=== PATIENT | female | born 1955 | race Caucasian/White ===

== ENCOUNTER → 2017-03-16 | Outpatient (CLI) | payer MEDICARE, BC ==
[2016-05-04 22:51] VITALS: BP 166/91
[~2017-03-16] MED LIST: ALPR1TAB6 PO; AZIT250T6 PO; BENZ100C PO; BUDE10.2 IH; CALC625T PO; CETI10TA16 PO; CHOL2000 PO; CHOL200074 PO; DIPH25CA58 PO; DOXY100T PO; GUAI118L20 PO; GUAI600T47 PO; HYDR-209 PO; HYDR-2766 PO; IPRA14.7 IH; IPRA3AMP23 IH; IPRA4AER IH; LEVO100T5 PO; LEVO500T59 PO; METF-620 PO; METF500T4 PO; MONT10TA6 PO; NYST15CR2 TOP; OXYC-327 PO; PANT40GR PO; PRED-220 PO; PRED20TA PO; PSYL0.527 PO; ROFL500T7 PO; ZOLP5TAB PO; [UNRECOGNIZED DRUG - CODE] IH
--- NOTE | 2017-03-16 14:42 | RAD ---
CT of the paranasal sinuses without contrast, 03/16/2017: History: Chronic sinusitis Noncontrast scans were obtained with multiplanar reconstructions produced. There is moderate mucosal thickening in both maxillary sinuses. This soft tissue thickening extends into the ostiomeatal complex regions and both ethmoid sinuses. Both ethmoid sinuses are nearly completely opacified. There is extensive mucosal thickening in both sphenoid sinuses. There is partial opacification of the frontal sinuses, worse on the left. Several small air-fluid levels are noted. The findings have worsened since 02/13/2016. There are defects in the medial/superior holt of both maxillary sinuses, presumably postsurgical. The orbital contents are unremarkable. IMPRESSION: Extensive pansinusitis size as described above, which has worsened since 02/13/2016. PQRS Compliance Statement: One or more of the following individualized dose reduction techniques were utilized for this examination: 1. Automated exposure control 2. Adjustment of the mA and/or kV according to patient size 3. Use of iterative reconstruction technique
== END | disposition home or self-care (01) ==
LOC: CT 10:28
PROVIDERS: ATTEND Otolaryngology
DX: J32.9 Chronic sinusitis, unspecified (principal); J32.4 Chronic pansinusitis
CPT/HCPCS: 70486

== ENCOUNTER → 2017-04-01 | Outpatient (CLI) | payer MEDICARE, BC ==
[2016-05-04 22:51] VITALS: BP 166/91
--- NOTE | 2017-04-01 15:34 | RAD ---
Chest, 2 views, 04/01/2017: History: COPD, asthma Comparison is made to a study from 05/04/2016. The heart size and pulmonary vascularity are normal. There is mild right basilar linear atelectasis. No pulmonary consolidation is seen. There is no evidence of significant pleural fluid. Minimal spurring is present in the spine. IMPRESSION: Minimal left basilar linear atelectasis.
== END | disposition home or self-care (01) ==
LOC: RAD 14:24
PROVIDERS: ATTEND Internal Medicine Pulmonary Disease
DX: J98.11 Atelectasis (principal)
CPT/HCPCS: 71020

== ENCOUNTER → 2017-04-21 | Outpatient (CLI) | payer MEDICARE, BC ==
[2016-05-04 22:51] VITALS: BP 166/91
--- NOTE | 2017-04-21 13:36 | KCIC ---
Clinical Indication: Postmenopausal screening. Technique: Bone Densitometry was performed with dual photon absorption of the lumbar spine and proximal left femur. Comparison is from November 01, 2015. Findings: Lumbar Spine: Bone density is 1.006 g/cm2 for L1-L4. T-Score is -0.4 and Z-score 1.2. Age-matched percentage is 115 %. Left Femur total: Bone density is 1.054 g/cm2. T-Score is 0.9 and Z-score 2.0. Age-matched percentage is 130%. Spine bone marrow density has decreased by 3.3 percent from prior. Hip bone marrow density has decreased by 2.2 percent from prior. Impression: 1. Normal bone mineral density in the lumbar spine. 2. Normal bone marrow density in the left hip. Electronically signed by: Chandler Monsivais MD (04/21/2017 1:33 PM) [email or web address]
== END | disposition home or self-care (01) ==
LOC: KCIC DEXA 12:54
PROVIDERS: ATTEND Internal Medicine Rheumatology
DX: N95.9 Unspecified menopausal and perimenopausal disorder (principal)
CPT/HCPCS: 77080

== ENCOUNTER 2017-12-27 15:38 | Inpatient (IN) | payer MEDICARE, BC ==
[2017-12-27] MEDS: IPRATROPIUM BROMIDE 0.5 MG/2.5 ML NEBU. NEB (15:56)
[2017-12-27] MEDS: ALBUTEROL SULFATE 2.5 MG/3 ML NEBU. CONT NEB (15:56)
[2017-12-27] MEDS: methylPREDNISolone SOD SUCC PF 125 MG/2 ML VIAL. IV ×2 (16:04→21:26)
[2017-12-27 16:22] LABS: ADD MAN DIFF? NO
[2017-12-27 16:23] LABS: BASO # 0.2 x10^3/uL (0.0-0.2); BASO % 2 % (0-3); EOS # 0.5 x10^3/uL (0.0-0.7); EOS % 6 % (0-3); HEMATOCRIT 34.8 % (36.0-47.0); HEMOGLOBIN 11.6 g/dL (12.0-15.5); LYMPH # 2.3 x10^3/uL (1.0-4.8); LYMPH % 25 % (24-48); MEAN CORPUSCULAR HEMOGLOBIN 27 pg (25-35); MEAN CORPUSCULAR HGB CONC 33 g/dL (31-37); MEAN CORPUSCULAR VOLUME 81 fL (79-100); MONO # 0.6 x10^3/uL (0.0-1.1); MONO % 6 % (0-9); NEUT # 5.8 x10^3uL (1.8-7.7); NEUT % 62 % (31-73); PLATELET COUNT 364 x10^3/uL (140-400); RED BLOOD COUNT 4.31 x10^6/uL (3.50-5.40); WHITE BLOOD COUNT 9.4 x10^3/uL (4.0-11.0)
[2017-12-27 16:49] LABS: NT-PRO BNP 112 pg/mL (0-124)
[2017-12-27 16:52] LABS: TROPONINI < 0.017 ng/mL (0.000-0.055)
[2017-12-27] MEDS ORDERED: CROMOLYN SODIUM 20 MG/2 ML IH (17:00)
[2017-12-27] MEDS ORDERED: ZOLPIDEM 5 MG TABLET. PO (17:00)
[2017-12-27] MEDS ORDERED: cloNIDine HCL 0.1 MG TABLET PO (17:00)
[2017-12-27] MEDS ORDERED: HYDROcodone/APAP 10/325 1 TAB TABLET PO (17:00)
[2017-12-27] MEDS ORDERED: CALCIUM POLYCARBOPHIL 625 MG TABLET PO (17:00)
[2017-12-27] MEDS ORDERED: IBUPROFEN 400 MG TABLET. PO (17:00)
[2017-12-27] MEDS ORDERED: ACETAMINOPHEN 500 MG TABLET PO (17:00)
[2017-12-27] MEDS ORDERED: ALBUTEROL SULFATE 2.5 MG/3 ML NEBU. NEB (17:00)
[2017-12-27] MEDS: BENZONATATE 100 MG CAPSULE. PO ×2 (18:12→20:51)
[2017-12-27] MEDS: guaiFENesin DM 200MG/20MG 10 ML SYRUP PO (18:12)
[2017-12-27] MEDS: oxyCODONE/APAP 7.5/325 1 TAB TABLET PO (18:13)
[2017-12-27 19:25] LABS: ANION GAP 11 (6-14); BLOOD UREA NITROGEN 18 mg/dL (7-20); BUN/CREATININE RATIO 15 (6-20); CALCIUM 9.4 mg/dL (8.5-10.1); CARBON DIOXIDE 24 mmol/L (21-32); CHLORIDE 104 mmol/L (98-107); CREATININE 1.2 mg/dL (0.6-1.0); GFR 45.4; GLUCOSE 161 mg/dL (70-99); POTASSIUM 3.3 mmol/L (3.5-5.1); SODIUM 139 mmol/L (136-145)
[2017-12-27] MEDS ORDERED: IPRATRPIUM/ALBUTEROL 0.5/2.5MG 3 ML NEBU. (19:30)
[2017-12-27 19:31] LABS: ALBUMIN 3.4 g/dL (3.4-5.0); ALK PHOS 132 U/L (46-116); ALT (SGPT) 29 U/L (14-59); AST (SGOT) 18 U/L (15-37); TOTAL BILIRUBIN 0.5 mg/dL (0.2-1.0); TOTAL PROTEIN 6.9 g/dL (6.4-8.2)
[2017-12-27] MEDS: IPRATRPIUM/ALBUTEROL 0.5/2.5MG 3 ML NEBU. NEB (20:36)
[2017-12-27] MEDS: MONTELUKAST SODIUM 10 MG TABLET. PO ×2 (20:51→20:53)
[2017-12-27] MEDS: HYDROcodone/APAP 5/325MG 1 TAB TABLET PO (23:02)
[2017-12-27] MEDS: ALPRAZolam 1 MG TABLET PO (23:05)
[2017-12-28] MEDS: diphenhydrAMINE HCL 25 MG CAPSULE PO (01:40)
[2017-12-28] MEDS: guaiFENesin DM 200MG/20MG 10 ML SYRUP PO ×3 (03:25→17:55)
[2017-12-28] MEDS: LEVOTHYROXINE 112 MCG TABLET PO (06:18)
[2017-12-28] MEDS: oxyCODONE/APAP 7.5/325 1 TAB TABLET PO ×3 (06:18→21:33)
[2017-12-28] MEDS: methylPREDNISolone SOD SUCC PF 125 MG/2 ML VIAL. IV ×3 (06:18→21:40)
[2017-12-28] MEDS: IPRATRPIUM/ALBUTEROL 0.5/2.5MG 3 ML NEBU. NEB ×4 (08:13→19:58)
[2017-12-28] MEDS ORDERED: PSYLLIUM HUSK (SUGAR FREE) 1 PKT PACKET PO (09:00)
[2017-12-28] MEDS: ROFLUMILAST 500 MCG TABLET. PO (09:37)
[2017-12-28] MEDS: BENZONATATE 100 MG CAPSULE. PO ×3 (09:37→21:30)
[2017-12-28] MEDS: CETIRIZINE HCL 10 MG TABLET. PO (09:37)
[2017-12-28] MEDS: CHOLECALCIFEROL (VITAMIN D3) 5,000 UNIT CAPSULE PO (09:37)
[2017-12-28] MEDS: PANTOPRAZOLE 40 MG TABLET.DR. PO (09:37)
[2017-12-28] MEDS: ALPRAZolam 1 MG TABLET PO ×2 (09:39→21:38)
[2017-12-28] MEDS: ENOXAPARIN 40 MG/0.4 ML SYRINGE. SQ (12:27)
[2017-12-28] MEDS ORDERED: DEXTROSE 50% 25 GM / 50ML DISP.SYRIN. IV ×3 (12:45)
[2017-12-28 17:21] LABS: POC GLUCOSE 282 mg/dL (70-99)
[2017-12-28] MEDS: INSULIN LISPRO 300 UNITS/3 ML INSULN.PEN. SQ ×2 (17:26→21:46)
[2017-12-28 20:50] LABS: POC GLUCOSE 309 mg/dL (70-99)
[2017-12-28] MEDS: MONTELUKAST SODIUM 10 MG TABLET. PO (21:31)
[2017-12-29] MEDS: oxyCODONE/APAP 7.5/325 1 TAB TABLET PO (02:54)
[2017-12-29] MEDS: LEVOTHYROXINE 112 MCG TABLET PO (06:19)
[2017-12-29] MEDS: methylPREDNISolone SOD SUCC PF 125 MG/2 ML VIAL. IV (06:19)
[2017-12-29 06:32] LABS: BASO % 0 % (0-3); EOS % 0 % (0-3); HEMATOCRIT 32.8 % (36.0-47.0); HEMOGLOBIN 10.9 g/dL (12.0-15.5); LYMPH # 1.2 x10^3/uL (1.0-4.8); LYMPH % 10 % (24-48); MEAN CORPUSCULAR HEMOGLOBIN 27 pg (25-35); MEAN CORPUSCULAR HGB CONC 33 g/dL (31-37); MEAN CORPUSCULAR VOLUME 81 fL (79-100); MONO # 0.4 x10^3/uL (0.0-1.1); MONO % 3 % (0-9); NEUT % 87 % (31-73); PLATELET COUNT 377 x10^3/uL (140-400); RED BLOOD COUNT 4.03 x10^6/uL (3.50-5.40); RED CELL DISTRIBUTION WIDTH 14.7 % (11.5-14.5); WHITE BLOOD COUNT 12.6 x10^3/uL (4.0-11.0)
[2017-12-29 06:41] LABS: ADD MAN DIFF? YES
[2017-12-29 07:15] LABS: ANION GAP 10 (6-14); BLOOD UREA NITROGEN 20 mg/dL (7-20); CALCIUM 9.4 mg/dL (8.5-10.1); CARBON DIOXIDE 24 mmol/L (21-32); CHLORIDE 105 mmol/L (98-107); GLUCOSE 255 mg/dL (70-99); POTASSIUM 4.3 mmol/L (3.5-5.1); SODIUM 139 mmol/L (136-145)
[2017-12-29 07:51] LABS: % LYMPHS 10 % (24-48); % MONOS 2 % (0-10); % SEGS 88 % (35-66); PLT ESTIMATE ADEQUATE (ADEQUATE)
[2017-12-29 07:52] LABS: ANISOCYTOSIS SLIGHT
[2017-12-30] MEDS ORDERED: predniSONE 20 MG TABLET PO (09:00)
== END 2017-12-29 10:08 | disposition home or self-care (01) | DRG 189 ==
LOC: ER 15:38 → 5 SOUTH 16:45
DX: J96.91 Respiratory failure, unspecified with hypoxia (principal); E11.22 Type 2 diabetes mellitus with diabetic chronic kidney disease; J44.0 Chronic obstructive pulmonary disease with (acute) lower respiratory infection; E66.01 Morbid (severe) obesity due to excess calories; J45.901 Unspecified asthma with (acute) exacerbation; N18.3 Chronic kidney disease, stage 3 (moderate); J44.1 Chronic obstructive pulmonary disease with (acute) exacerbation; I12.9 Hypertensive chronic kidney disease with stage 1 through stage 4 chronic kidney disease, or unspecified chronic kidney disease; J20.9 Acute bronchitis, unspecified; K21.9 Gastro-esophageal reflux disease without esophagitis; E03.9 Hypothyroidism, unspecified; M79.7 Fibromyalgia; F32.9 Major depressive disorder, single episode, unspecified; M19.90 Unspecified osteoarthritis, unspecified site; Z82.49 Family history of ischemic heart disease and other diseases of the circulatory system; Z87.891 Personal history of nicotine dependence; Z90.710 Acquired absence of both cervix and uterus; Z95.0 Presence of cardiac pacemaker; Z90.89 Acquired absence of other organs; Z88.1 Allergy status to other antibiotic agents; Z88.2 Allergy status to sulfonamides; Z88.8 Allergy status to other drugs, medicaments and biological substances; Z91.048 Other nonmedicinal substance allergy status; Z68.34 Body mass index [BMI] 34.0-34.9, adult
CPT/HCPCS: 36415; 71045; 80048; 80053; 82962; 83880; 84484; 85007; 85025; 93005; 94640; 94644; 94760; 96374; 99285-25; J1650; J1815; J2930; J7613; J7620; J7644; Q0163

== ENCOUNTER 2018-03-12 13:34 | Inpatient (IN) | payer MEDICARE ==
[2018-03-12] MEDS ORDERED: IPRATRPIUM/ALBUTEROL 0.5/2.5MG 3 ML NEBU. (14:07)
[2018-03-12] MEDS: IPRATRPIUM/ALBUTEROL 0.5/2.5MG 3 ML NEBU. NEB ×4 (14:09→20:15)
[2018-03-12] MEDS: methylPREDNISolone SOD SUCC PF 125 MG/2 ML VIAL. IV (14:34)
[2018-03-12 14:43] LABS: ANION GAP 14 (6-14); BLOOD UREA NITROGEN 20 mg/dL (7-20); BUN/CREATININE RATIO 14 (6-20); CALCIUM 9.3 mg/dL (8.5-10.1); CARBON DIOXIDE 21 mmol/L (21-32); CHLORIDE 105 mmol/L (98-107); CREATININE 1.4 mg/dL (0.6-1.0); GLUCOSE 184 mg/dL (70-99); POTASSIUM 3.9 mmol/L (3.5-5.1); SODIUM 140 mmol/L (136-145)
[2018-03-12 14:48] LABS: ALBUMIN 3.5 g/dL (3.4-5.0); ALBUMIN/GLOBULIN RATIO 0.9 (1.0-1.7); ALK PHOS 126 U/L (46-116); ALT (SGPT) 37 U/L (14-59); AST (SGOT) 32 U/L (15-37); LIPASE 179 U/L (73-393); TOTAL PROTEIN 7.2 g/dL (6.4-8.2)
[2018-03-12 14:49] LABS: TROPONINI < 0.017 ng/mL (0.000-0.055)
[2018-03-12 15:12] LABS: CKMB INDEX 0.4 % (0-4); CKMB MASS 0.6 ng/mL (0.0-3.6); CREATINE KINASE 149 U/L (26-192)
[2018-03-12 15:19] LABS: ADD MAN DIFF? NO
[2018-03-12 15:22] LABS: BASO # 0.1 x10^3/uL (0.0-0.2); BASO % 1 % (0-3); EOS # 0.4 x10^3/uL (0.0-0.7); EOS % 6 % (0-3); HEMATOCRIT 35.4 % (36.0-47.0); HEMOGLOBIN 11.5 g/dL (12.0-15.5); LYMPH # 2.2 x10^3/uL (1.0-4.8); LYMPH % 30 % (24-48); MEAN CORPUSCULAR HEMOGLOBIN 27 pg (25-35); MEAN CORPUSCULAR HGB CONC 33 g/dL (31-37); MEAN CORPUSCULAR VOLUME 82 fL (79-100); MONO # 0.5 x10^3/uL (0.0-1.1); MONO % 7 % (0-9); NEUT # 4.2 x10^3uL (1.8-7.7); NEUT % 56 % (31-73); PLATELET COUNT 315 x10^3/uL (140-400); RED CELL DISTRIBUTION WIDTH 14.4 % (11.5-14.5); WHITE BLOOD COUNT 7.5 x10^3/uL (4.0-11.0)
[2018-03-12 15:31] LABS: PROTHROMBIN TIME PATIENT 13.1 SEC (11.7-14.0)
[2018-03-12] MEDS ORDERED: ONDANSETRON PF 4 MG/2 ML VIAL. IV ×2 (15:45→16:15)
[2018-03-12] MEDS ORDERED: CROMOLYN SODIUM IH (15:45)
[2018-03-12] MEDS ORDERED: ZOLPIDEM 5 MG TABLET. PO (15:45)
[2018-03-12] MEDS ORDERED: DOCUSATE SODIUM 100 MG CAPSULE. PO (15:45)
[2018-03-12] MEDS ORDERED: DEXTROSE 50% 25 GM / 50ML DISP.SYRIN. IV (16:00)
[2018-03-12] MEDS ORDERED: fentaNYL PF VIAL 100 MCG/2 ML VIAL IV (16:15)
[2018-03-12] MEDS ORDERED: ACETAMINOPHEN 325 MG TABLET. PO (16:15)
[2018-03-12] MEDS: BUDESONIDE 0.5 MG/2 ML NEBU. NEB (20:15)
[2018-03-12] MEDS: IV NORMAL SALINE 1000ML BAG 1,000 ML IV (20:36)
[2018-03-12] MEDS: ENOXAPARIN 40 MG/0.4 ML SYRINGE. SQ (20:41)
[2018-03-12 20:45] LABS: POC GLUCOSE 275 mg/dL (70-99)
[2018-03-12] MEDS: MONTELUKAST SODIUM 10 MG TABLET. PO (20:45)
[2018-03-12] MEDS: BENZONATATE 100 MG CAPSULE. PO (20:45)
[2018-03-12] MEDS: ALPRAZolam 1 MG TABLET PO (20:46)
[2018-03-12] MEDS: oxyCODONE/APAP 7.5/325 1 TAB TABLET PO (20:46)
[2018-03-12] MEDS: INSULIN LISPRO 300 UNITS/3 ML INSULN.PEN. SQ (20:55)
[2018-03-12] MEDS ORDERED: NON FORMULARY ITEM (Budesonide/Formoterol Fumarate (Symbicort 160-4.5 Mcg Inhaler) 10.2 GM IH (21:00)
[2018-03-12] MEDS: methylPREDNISolone SOD SUCC PF 40 MG/ML VIAL. IV (22:09)
[2018-03-12] MEDS: diphenhydrAMINE HCL 25 MG CAPSULE PO (22:14)
[2018-03-13] MEDS: oxyCODONE/APAP 7.5/325 1 TAB TABLET PO ×5 (00:45→21:48)
[2018-03-13] MEDS: diphenhydrAMINE HCL 25 MG CAPSULE PO ×4 (02:19→21:47)
[2018-03-13] MEDS: ALBUTEROL SULFATE 2.5 MG/3 ML NEBU. NEB (02:40)
[2018-03-13 05:33] LABS: BASO % 0 % (0-3); EOS % 0 % (0-3); HEMATOCRIT 34.7 % (36.0-47.0); HEMOGLOBIN 11.4 g/dL (12.0-15.5); LYMPH # 0.8 x10^3/uL (1.0-4.8); LYMPH % 11 % (24-48); MEAN CORPUSCULAR HEMOGLOBIN 27 pg (25-35); MEAN CORPUSCULAR HGB CONC 33 g/dL (31-37); MEAN CORPUSCULAR VOLUME 82 fL (79-100); MONO # 0.1 x10^3/uL (0.0-1.1); MONO % 1 % (0-9); NEUT # 6.4 x10^3uL (1.8-7.7); NEUT % 88 % (31-73); PLATELET COUNT 319 x10^3/uL (140-400); RED BLOOD COUNT 4.22 x10^6/uL (3.50-5.40); RED CELL DISTRIBUTION WIDTH 14.4 % (11.5-14.5); WHITE BLOOD COUNT 7.3 x10^3/uL (4.0-11.0)
[2018-03-13 05:53] LABS: ADD MAN DIFF? YES
[2018-03-13] MEDS: methylPREDNISolone SOD SUCC PF 40 MG/ML VIAL. IV ×3 (05:56→21:47)
[2018-03-13] MEDS: LEVOTHYROXINE 125 MCG TABLET PO (05:56)
[2018-03-13] MEDS: BENZONATATE 100 MG CAPSULE. PO ×2 (05:57→12:57)
[2018-03-13 05:59] LABS: ANION GAP 9 (6-14); BLOOD UREA NITROGEN 21 mg/dL (7-20); CALCIUM 9.4 mg/dL (8.5-10.1); CARBON DIOXIDE 24 mmol/L (21-32); CHLORIDE 105 mmol/L (98-107); CREATININE 1.1 mg/dL (0.6-1.0); GFR 50.2; GLUCOSE 255 mg/dL (70-99); POTASSIUM 3.7 mmol/L (3.5-5.1); SODIUM 138 mmol/L (136-145)
[2018-03-13] MEDS: BUDESONIDE 0.5 MG/2 ML NEBU. NEB ×2 (07:21→19:06)
[2018-03-13] MEDS: IPRATRPIUM/ALBUTEROL 0.5/2.5MG 3 ML NEBU. NEB ×4 (07:21→19:06)
[2018-03-13 07:22] LABS: % LYMPHS 5 % (24-48); % MONOS 1 % (0-10); % SEGS 94 % (35-66); PLT ESTIMATE DECREASED (ADEQUATE)
[2018-03-13] MEDS: PANTOPRAZOLE 40 MG TABLET.DR. PO ×2 (07:30→12:56)
[2018-03-13] MEDS: INSULIN LISPRO 300 UNITS/3 ML INSULN.PEN. SQ ×3 (08:00→17:23)
[2018-03-13] MEDS: ROFLUMILAST 500 MCG TABLET. PO ×2 (08:58→12:57)
[2018-03-13] MEDS: CALCIUM POLYCARBOPHIL 625 MG TABLET PO ×2 (08:59→09:00)
[2018-03-13] MEDS: MONTELUKAST SODIUM 10 MG TABLET. PO ×2 (08:59→12:56)
[2018-03-13] MEDS: CETIRIZINE HCL 10 MG TABLET. PO ×2 (08:59→12:57)
[2018-03-13] MEDS: CHOLECALCIFEROL (VITAMIN D3) 5,000 UNIT CAPSULE PO ×2 (08:59→12:56)
[2018-03-13 12:41] LABS: POC GLUCOSE 259 mg/dL (70-99)
[2018-03-13] MEDS: ALPRAZolam 1 MG TABLET PO (12:57)
[2018-03-13] MEDS: ENOXAPARIN 40 MG/0.4 ML SYRINGE. SQ (12:58)
[2018-03-13 16:43] LABS: POC GLUCOSE 257 mg/dL (70-99)
[2018-03-13 21:56] LABS: POC GLUCOSE 255 mg/dL (70-99)
[2018-03-14] MEDS: diphenhydrAMINE HCL 25 MG CAPSULE PO ×3 (00:12→12:11)
[2018-03-14] MEDS: BENZONATATE 100 MG CAPSULE. PO ×2 (06:13→17:55)
[2018-03-14] MEDS: methylPREDNISolone SOD SUCC PF 40 MG/ML VIAL. IV ×3 (06:13→23:32)
[2018-03-14] MEDS: LEVOTHYROXINE 125 MCG TABLET PO (06:14)
[2018-03-14] MEDS: oxyCODONE/APAP 7.5/325 1 TAB TABLET PO ×3 (06:15→17:55)
[2018-03-14] MEDS: BUDESONIDE 0.5 MG/2 ML NEBU. NEB ×2 (07:14→19:18)
[2018-03-14] MEDS: IPRATRPIUM/ALBUTEROL 0.5/2.5MG 3 ML NEBU. NEB ×4 (07:14→19:18)
[2018-03-14 07:49] LABS: POC GLUCOSE 221 mg/dL (70-99)
[2018-03-14] MEDS: ROFLUMILAST 500 MCG TABLET. PO (08:32)
[2018-03-14] MEDS: PANTOPRAZOLE 40 MG TABLET.DR. PO (08:32)
[2018-03-14] MEDS: MONTELUKAST SODIUM 10 MG TABLET. PO (08:32)
[2018-03-14] MEDS: CETIRIZINE HCL 10 MG TABLET. PO (08:32)
[2018-03-14] MEDS: CALCIUM POLYCARBOPHIL 625 MG TABLET PO (08:33)
[2018-03-14] MEDS: CHOLECALCIFEROL (VITAMIN D3) 5,000 UNIT CAPSULE PO (08:33)
[2018-03-14] MEDS: INSULIN LISPRO 300 UNITS/3 ML INSULN.PEN. SQ ×3 (08:42→18:12)
[2018-03-14 11:58] LABS: POC GLUCOSE 187 mg/dL (70-99)
[2018-03-14] MEDS: ENOXAPARIN 40 MG/0.4 ML SYRINGE. SQ (12:14)
[2018-03-14 16:54] LABS: POC GLUCOSE 244 mg/dL (70-99)
[2018-03-14] MEDS: ALPRAZolam 1 MG TABLET PO (17:55)
[2018-03-14] MEDS ORDERED: diphenhydrAMINE HCL 25 MG CAPSULE PO (18:45)
[2018-03-14] MEDS ORDERED: ALPRAZolam 0.5 MG TABLET PO (18:45)
[2018-03-15] MEDS: oxyCODONE/APAP 7.5/325 1 TAB TABLET PO ×5 (02:18→22:21)
[2018-03-15] MEDS: diphenhydrAMINE HCL 25 MG CAPSULE PO ×2 (02:18→22:21)
[2018-03-15] MEDS: ALBUTEROL SULFATE 2.5 MG/3 ML NEBU. NEB ×2 (02:35→07:35)
[2018-03-15] MEDS: BUDESONIDE 0.5 MG/2 ML NEBU. NEB ×2 (07:35→20:10)
[2018-03-15] MEDS: IPRATRPIUM/ALBUTEROL 0.5/2.5MG 3 ML NEBU. NEB ×4 (07:36→20:10)
[2018-03-15 07:48] LABS: POC GLUCOSE 162 mg/dL (70-99)
[2018-03-15] MEDS: CALCIUM POLYCARBOPHIL 625 MG TABLET PO (08:07)
[2018-03-15] MEDS: methylPREDNISolone SOD SUCC PF 40 MG/ML VIAL. IV ×3 (08:07→22:20)
[2018-03-15] MEDS: CHOLECALCIFEROL (VITAMIN D3) 5,000 UNIT CAPSULE PO (08:07)
[2018-03-15] MEDS: MONTELUKAST SODIUM 10 MG TABLET. PO (08:08)
[2018-03-15] MEDS: LEVOTHYROXINE 125 MCG TABLET PO (08:08)
[2018-03-15] MEDS: ROFLUMILAST 500 MCG TABLET. PO (08:08)
[2018-03-15] MEDS: CETIRIZINE HCL 10 MG TABLET. PO (08:08)
[2018-03-15] MEDS: PANTOPRAZOLE 40 MG TABLET.DR. PO (08:08)
[2018-03-15] MEDS: INSULIN GLARGINE 300 UNITS/3 ML INSULN.PEN. SQ ×2 (08:50→09:00)
[2018-03-15] MEDS: INSULIN LISPRO 300 UNITS/3 ML INSULN.PEN. SQ ×3 (08:51→18:06)
[2018-03-15] MEDS ORDERED: guaiFENesin DM 200MG/20MG 10 ML SYRUP PO (09:00)
[2018-03-15 12:18] LABS: POC GLUCOSE 305 mg/dL (70-99)
[2018-03-15 17:03] LABS: POC GLUCOSE 236 mg/dL (70-99)
[2018-03-15] MEDS: BENZONATATE 100 MG CAPSULE. PO (22:20)
[2018-03-16] MEDS: diphenhydrAMINE HCL 25 MG CAPSULE PO ×2 (02:40→13:04)
[2018-03-16] MEDS: oxyCODONE/APAP 7.5/325 1 TAB TABLET PO ×3 (02:40→13:04)
[2018-03-16] MEDS: methylPREDNISolone SOD SUCC PF 40 MG/ML VIAL. IV ×2 (06:32→13:40)
[2018-03-16] MEDS: LEVOTHYROXINE 125 MCG TABLET PO (06:32)
[2018-03-16] MEDS: BUDESONIDE 0.5 MG/2 ML NEBU. NEB (07:37)
[2018-03-16] MEDS: IPRATRPIUM/ALBUTEROL 0.5/2.5MG 3 ML NEBU. NEB ×2 (07:37→11:24)
[2018-03-16 07:56] LABS: POC GLUCOSE 255 mg/dL (70-99)
[2018-03-16] MEDS: ROFLUMILAST 500 MCG TABLET. PO (08:11)
[2018-03-16] MEDS: PANTOPRAZOLE 40 MG TABLET.DR. PO (08:12)
[2018-03-16] MEDS: CHOLECALCIFEROL (VITAMIN D3) 5,000 UNIT CAPSULE PO (08:12)
[2018-03-16] MEDS: MONTELUKAST SODIUM 10 MG TABLET. PO (08:12)
[2018-03-16] MEDS: CETIRIZINE HCL 10 MG TABLET. PO (08:12)
[2018-03-16] MEDS: CALCIUM POLYCARBOPHIL 625 MG TABLET PO (08:12)
[2018-03-16] MEDS: INSULIN GLARGINE 300 UNITS/3 ML INSULN.PEN. SQ (08:16)
[2018-03-16] MEDS: INSULIN LISPRO 300 UNITS/3 ML INSULN.PEN. SQ ×2 (08:17→12:00)
[2018-03-16 12:13] LABS: POC GLUCOSE 216 mg/dL (70-99)
== END 2018-03-16 13:55 | disposition home or self-care (01) | DRG 190 ==
LOC: ER 13:34 → 6 SOUTH 15:22
DX: J44.1 Chronic obstructive pulmonary disease with (acute) exacerbation (principal); N17.0 Acute kidney failure with tubular necrosis; J45.902 Unspecified asthma with status asthmaticus; M79.7 Fibromyalgia; E03.9 Hypothyroidism, unspecified; K21.9 Gastro-esophageal reflux disease without esophagitis; F32.9 Major depressive disorder, single episode, unspecified; N18.3 Chronic kidney disease, stage 3 (moderate); E11.22 Type 2 diabetes mellitus with diabetic chronic kidney disease; E66.01 Morbid (severe) obesity due to excess calories; M19.90 Unspecified osteoarthritis, unspecified site; Z90.710 Acquired absence of both cervix and uterus; Z88.6 Allergy status to analgesic agent; Z88.1 Allergy status to other antibiotic agents; Z88.5 Allergy status to narcotic agent; Z88.2 Allergy status to sulfonamides; Z88.8 Allergy status to other drugs, medicaments and biological substances; Z91.048 Other nonmedicinal substance allergy status; Z91.09 Other allergy status, other than to drugs and biological substances; Z82.49 Family history of ischemic heart disease and other diseases of the circulatory system; Z68.35 Body mass index [BMI] 35.0-35.9, adult; Z79.84 Long term (current) use of oral hypoglycemic drugs; Z79.51 Long term (current) use of inhaled steroids
CPT/HCPCS: 36415; 71045; 80048; 80053; 82553; 82962; 83690; 84484; 85007; 85025; 85610; 93005; 94640; 94760; 96374; 99285; 99285-25; J1650; J1815; J2920; J2930; J7030; J7613; J7620; J7626; Q0163

== ENCOUNTER 2018-08-08 12:50 | Emergency (ER) | payer MEDICARE ==
[~2018-08-08] VITALS: Ht 167.6 cm; Wt 108.9 kg
[~2018-08-08 12:50] MED LIST changes: -HYDR-2766 PO; +HYDR-2769 PO; -METF-620 PO; +METF10007 PO; +METF500T16 PO; -METF500T4 PO; -OXYC-327 PO; +OXYC1TAB19 PO; +TRIA15OI TP
[2018-08-08] MEDS ORDERED: ALBUTEROL SULFATE 2.5 MG/3 ML NEBU. CONT NEB ONE (13:15)
[2018-08-08] MEDS ORDERED: IV NORMAL SALINE 1000ML BAG 1,000 ML IV ONE (13:15)
[2018-08-08 13:52] LABS: BASO # 0.1 x10^3/uL (0.0-0.2); BASO % 1 % (0-3); EOS % 10 % (0-3); HEMATOCRIT 36.5 % (36.0-47.0); HEMOGLOBIN 12.5 g/dL (12.0-15.5); LYMPH # 2.6 x10^3/uL (1.0-4.8); LYMPH % 26 % (24-48); MEAN CORPUSCULAR HEMOGLOBIN 28 pg (25-35); MEAN CORPUSCULAR HGB CONC 34 g/dL (31-37); MEAN CORPUSCULAR VOLUME 83 fL (79-100); MONO # 0.7 x10^3/uL (0.0-1.1); MONO % 8 % (0-9); NEUT # 5.4 x10^3uL (1.8-7.7); NEUT % 55 % (31-73); PLATELET COUNT 322 x10^3/uL (140-400); RED BLOOD COUNT 4.41 x10^6/uL (3.50-5.40); RED CELL DISTRIBUTION WIDTH 15.4 % (11.5-14.5); WHITE BLOOD COUNT 9.8 x10^3/uL (4.0-11.0)
[2018-08-08 13:57] LABS: CALCIUM 9.6 mg/dL (8.5-10.1); CREATININE 1.2 mg/dL (0.6-1.0); GFR 45.4; POTASSIUM 3.4 mmol/L (3.5-5.1)
--- NOTE | 2018-08-08 14:10 | RAD ---
EXAM: CHEST 1 VIEW History: Shortness of breath COMPARISON: 03/12/2018 TECHNIQUE: Single portable radiograph of the chest FINDINGS: The cardiac silhouette is unremarkable. The lungs are clear bilaterally. The costophrenic sulci are clear and well demarcated. IMPRESSION: No radiographic evidence of an acute cardiopulmonary process. Electronically signed by: Senthil Smith MD (08/08/2018 2:06 PM) [facility]
[2018-08-08 14:11] LABS: ALBUMIN 3.5 g/dL (3.4-5.0); TOTAL BILIRUBIN 0.6 mg/dL (0.2-1.0)
[2018-08-08] MEDS ORDERED: BENZ100C PO (14:19)
[2018-08-08] MEDS ORDERED: PRED50TA PO (14:20)
--- NOTE | 2018-08-08 14:21 | PHYS DOC ---
Past Medical History Past Medical History: Arthritis, Asthma, COPD, Fibromyalgia, Hypothyroid Additional Past Medical Histor: Thyroid disease Past Surgical History: Hysterectomy, Tonsillectomy Alcohol Use: None Drug Use: None Adult General Chief Complaint Chief Complaint: ASTHMA HPI HPI Patient is a 62 year old female who presents with exacerbation of her asthma and COPD. The patient just recently finished a round of antibiotics and took prednisone. She states that she has used her albuterol 5 times today at home with no relief. She denies fever or chest pain. Review of Systems Review of Systems Constitutional: Denies fever or chills [] Eyes: Denies change in visual acuity, redness, or eye pain [] HENT: Denies nasal congestion or sore throat [] Respiratory: See history of present illness Cardiovascular: No additional information not addressed in HPI [] GI: Denies abdominal pain, nausea, vomiting, bloody stools or diarrhea [] : Denies dysuria or hematuria [] Musculoskeletal: Denies back pain or joint pain [] Integument: Denies rash or skin lesions [] Neurologic: Denies headache, focal weakness or sensory changes [] Endocrine: Denies polyuria or polydipsia [] All other systems were reviewed and found to be within normal limits, except as documented in this note. Current Medications Current Medications Current Medications Medications (Trade) Dose Ordered Sig/Smooth Start Time Stop Time Status Last Admin Dose Admin Albuterol Sulfate (Ventolin Neb Soln) 10 mg 1X ONCE 08/08/18 13:15 08/08/18 13:16 DC 08/08/18 13:19 10 MG Benzonatate (Tessalon Perle) 100 mg 1X ONCE 08/08/18 15:30 08/08/18 15:31 DC 08/08/18 15:27 100 MG Methylprednisolone Sodium Succinate (SOLU-Medrol 125MG VIAL) 125 mg 1X ONCE 08/08/18 15:30 08/08/18 15:36 DC 08/08/18 15:39 125 MG Sodium Chloride 1,000 ml @ 1,000 mls/hr 1X ONCE 08/08/18 13:15 08/08/18 14:14 DC 08/08/18 13:45 1,000 MLS/HR Allergies Allergies Allergies Coded Allergies Type Severity Reaction Last Updated Verified gadopentetate dimeglumine Allergy Severe Anaphylaxis 07/09/14 Yes levofloxacin Allergy Severe Hives 11/09/15 Yes acetaminophen Allergy Intermediate Itching 12/28/17 Yes adhesive Allergy Intermediate Rash 07/09/14 Yes hydrocodone Allergy Intermediate Itching 12/28/17 Yes Sulfa (Sulfonamide Antibiotics) Adverse Reaction Intermediate ABDOMINAL PAIN 07/15/14 Yes diazepam Adverse Reaction Intermediate "MAKES ME CRAZY" 07/15/14 Yes procaine Adverse Reaction Intermediate Nausea and Vomiting 07/15/14 Yes doxycycline Adverse Reaction Mild Nausea and Vomiting 02/16/16 Yes Uncoded Allergies Type Severity Reaction Last Updated Verified "SCENTS" Allergy Severe 03/13/18 Physical Exam Physical Exam Constitutional: Well developed, well nourished, no acute distress, non-toxic appearance. [] HENT: Normocephalic, atraumatic, bilateral external ears normal, oropharynx moist, no oral exudates, nose normal. [] Eyes: PERRLA, EOMI, conjunctiva normal, no discharge. [] Neck: Normal range of motion, no tenderness, supple, no stridor. [] Cardiovascular:Heart rate regular rhythm, no murmur [] Lungs & Thorax: Bilateral breath sounds show inspiratory and expiratory wheezing, patient is having difficulty completing a full sentence Abdomen: Bowel sounds normal, soft, no tenderness, no masses, no pulsatile masses. [] Skin: Warm, dry, no erythema, no rash. [] Back: No tenderness, no CVA tenderness. [] Extremities: No tenderness, no cyanosis, no clubbing, ROM intact, no edema. [] Neurologic: Alert and oriented X 3, normal motor function, normal sensory function, no focal deficits noted. [] Psychologic: Affect normal, judgement normal, mood normal. [] Current Patient Data Vital Signs Vital Signs Date Time Temp Pulse Resp B/P (MAP) Pulse Ox O2 Delivery O2 Flow Rate FiO2 08/08/18 15:30 86 20 136/65 (88) 95 Room Air 08/08/18 13:49 97.5 97.5 Lab Values Laboratory Tests Test 08/08/18 13:39 White Blood Count 9.8 x10^3/uL (4.0-11.0) Red Blood Count 4.41 x10^6/uL (3.50-5.40) Hemoglobin 12.5 g/dL (12.0-15.5) Hematocrit 36.5 % (36.0-47.0) Mean Corpuscular Volume 83 fL (79-100) Mean Corpuscular Hemoglobin 28 pg (25-35) Mean Corpuscular Hemoglobin Concent 34 g/dL (31-37) Red Cell Distribution Width 15.4 % (11.5-14.5) H Platelet Count 322 x10^3/uL (140-400) Neutrophils (%) (Auto) 55 % (31-73) Lymphocytes (%) (Auto) 26 % (24-48) Monocytes (%) (Auto) 8 % (0-9) Eosinophils (%) (Auto) 10 % (0-3) H Basophils (%) (Auto) 1 % (0-3) Neutrophils # (Auto) 5.4 x10^3uL (1.8-7.7) Lymphocytes # (Auto) 2.6 x10^3/uL (1.0-4.8) Monocytes # (Auto) 0.7 x10^3/uL (0.0-1.1) Eosinophils # (Auto) 1.0 x10^3/uL (0.0-0.7) H Basophils # (Auto) 0.1 x10^3/uL (0.0-0.2) Sodium Level 144 mmol/L (136-145) Potassium Level 3.4 mmol/L (3.5-5.1) L Chloride Level 104 mmol/L (98-107) Carbon Dioxide Level 26 mmol/L (21-32) Anion Gap 14 (6-14) Blood Urea Nitrogen 15 mg/dL (7-20) Creatinine 1.2 mg/dL (0.6-1.0) H Estimated GFR (Cockcroft-Gault) 45.4 BUN/Creatinine Ratio 13 (6-20) Glucose Level 149 mg/dL (70-99) H Calcium Level 9.6 mg/dL (8.5-10.1) Total Bilirubin 0.6 mg/dL (0.2-1.0) Aspartate Amino Transferase (AST) 18 U/L (15-37) Alanine Aminotransferase (ALT) 33 U/L (14-59) Alkaline Phosphatase 97 U/L (46-116) Total Protein 7.0 g/dL (6.4-8.2) Albumin 3.5 g/dL (3.4-5.0) Albumin/Globulin Ratio 1.0 (1.0-1.7) Laboratory Tests 08/08/18 13:39 Laboratory Tests 08/08/18 13:39 EKG EKG [] Radiology/Procedures Radiology/Procedures []PATIENT: JAMARCUS HOLDENOUNT: [id number]#: [id number] : 1955 LOCATION: ER AGE: 62 SEX: F EXAM STATUS: REG ER ORD. PHYSICIAN: ENRIQUE COTTON APRN REASON: soa PROCEDURE: CHEST AP ONLY EXAM: CHEST 1 VIEW History: Shortness of breath COMPARISON: 03/12/2018 TECHNIQUE: Single portable radiograph of the chest FINDINGS: The cardiac silhouette is unremarkable. The lungs are clear bilaterally. The costophrenic sulci are clear and well demarcated. IMPRESSION: No radiographic evidence of an acute cardiopulmonary process. Electronically signed by: Senthil Smith MD (08/08/2018 2:06 PM) [facility] DICTATED and SIGNED BY: SENTHIL SMITH MD DATE: 08/08/181401 Course & Med Decision Making Course & Med Decision Making Pertinent Labs and Imaging studies reviewed. (See chart for details) []The patient has received 125 mg of Solu-Medrol, a bolus of normal saline as well as an hour-long nebulizer treatment. She states that she is feeling much improved. She is requesting Tessalon Perles to help with her cough. She is to follow-up with her primary care provider in 2 days for recheck if not improving. She is to return to the emergency department immediately if worsening. She is in agreement with this plan. Dragon Disclaimer Dragon Disclaimer This electronic medical record was generated, in whole or in part, using a voice recognition dictation system. Departure Departure Impression: Primary Impression: Asthma Disposition: HOME, SELF-CARE Condition: STABLE Referrals: GAVIOTA RICH MD (PCP) Patient Instructions: Asthma Prevention-Brief, Asthma, Adult Additional Instructions: Take the medication as directed. Follow-up with your primary care provider in 2 days for recheck if not improving or return to the emergency department immediately if worsening. Continue to use your at-home albuterol as directed. Scripts Prednisone (PREDNISONE) 50 Mg Tablet 1 TAB PO DAILY for asthma, #5 TAB Prov: ENRIQUE COTTON APRN 08/08/18 Benzonatate (TESSALON PERLE) 100 Mg Capsule 1 CAP PO TID for cough, #30 CAP Prov: ENRIQUE COTTON APRN 08/08/18 ENRIQUE COTTON APRN Aug 08, 2018 14:20
[2018-08-08 15:30] VITALS: BP 136/65
[2018-08-08] MEDS ORDERED: BENZONATATE 100 MG CAPSULE. PO ONE (15:30)
[2018-08-08] MEDS ORDERED: methylPREDNISolone SOD SUCC PF 125 MG/2 ML VIAL. IV ONE (15:30)
[2018-08-26] MEDS ORDERED: DOXY100T PO (10:48)
[2018-08-26] MEDS ORDERED: PRED20TA PO (10:48)
== END 2018-08-08 15:48 | disposition home or self-care (01) ==
LOC: ER 12:50
DX: J45.901 Unspecified asthma with (acute) exacerbation (principal); J44.9 Chronic obstructive pulmonary disease, unspecified; E03.9 Hypothyroidism, unspecified; Z88.1 Allergy status to other antibiotic agents; Z88.2 Allergy status to sulfonamides; Z88.4 Allergy status to anesthetic agent; Z88.5 Allergy status to narcotic agent; Z88.6 Allergy status to analgesic agent; Z88.8 Allergy status to other drugs, medicaments and biological substances
CPT/HCPCS: 36415; 71045; 80053; 85025; 94640; 96374; 99285; J2930; J7030; J7613; 94644; 99284-25

== ENCOUNTER 2020-04-29 04:57 | Emergency (ER) | payer MEDICARE ==
[~2020-04-29] VITALS: Ht 167.6 cm; Wt 104.5 kg
[~2020-04-29 04:57] MED LIST changes: +ASPI-886 PO; +ATOR20TA58 PO; +HYDR-2767 PO; +LISI-338 PO; +METO25TA4 PO; +MONT10TA49 PO; -MONT10TA6 PO; +PRED50TA PO
[2020-04-29] MEDS ORDERED: methylPREDNISolone SOD SUCC PF 125 MG/2 ML VIAL. IV ONE (05:45)
[2020-04-29] MEDS ORDERED: IPRATRPIUM/ALBUTEROL 0.5/2.5MG 3 ML NEBU. NEB ONE (05:45)
--- NOTE | 2020-04-29 06:00 | RAD ---
Study: CR CHEST AP ONLY Indication: Shortness of breath. Comparison: 10/24/2019 Findings: Unchanged cardiomediastinal silhouette and felicia. Interstitial lung markings are again prominent but not significant changed. No confluent infiltrate, large effusion or pneumothorax. Scattered granulomas. Impression: No acute radiographic abnormality of the chest. No significant change from 10/24/2019. Electronically signed by: ISHA PERALTA MD (04/29/2020 5:57 AM) [id number]
--- NOTE | 2020-04-29 06:17 | PHYS DOC ---
Past Medical History Past Medical History: Arthritis, Asthma, COPD, Fibromyalgia, Hypothyroid Additional Past Medical Histor: Thyroid disease, SLEEP APNEA (DANICA SANTANA MD) Past Surgical History: Hysterectomy, Tonsillectomy (DANICA SANTANA MD) Smoking Status: Former Smoker Alcohol Use: None Drug Use: None (DANICA SANTANA MD) General Adult EDM: Chief Complaint: ASTHMA HPI: HPI: Patient is 64-year-old female presents to the emergency room complaining of shortness of breath. Patient has a long history of asthma and COPD. She states that she typically gets an exacerbation around this time of year. 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 She states that on Thursday she started having wheezing which is progressively gotten worse. She is now having shortness of breath and some chest tightness. She denies any chest pain. She does not have productive cough. She has not had any fever. She did have any other URI symptoms. She states this feels exactly like previous episodes. She has been doing DuoNeb treatments at home without relief. (DANICA SANTANA MD) Review of Systems: Review of Systems: General: Denies fever, chills, sweats, fatigue Eyes: Denies drainage, blurred vision, eye redness HENT: Denies rhinorrhea, sore throat, earache Respiratory: Reports cough, shortness of breath, wheezing Cardiac: Denies edema, palpitations, chest pain GI: Denies abdominal pain, Nausea, vomiting MSK: Denies back pain, neck pain Skin: Denies rash, jaundice Neuro: Denies headache, dizziness Psychiatric: Denies SI/HI (DANICA SANTANA MD) Heart Score: Risk Factors: Risk Factors: DM, Current or recent (<one month) smoker, HTN, HLP, family history of CAD, obesity. Risk Scores: Score 0 - 3: 2.5% MACE over next 6 weeks - Discharge Home Score 4 - 6: 20.3% MACE over next 6 weeks - Admit for Clinical Observation Score 7 - 10: 72.7% MACE over next 6 weeks - Early Invasive Strategies (DANICA SANTANA MD) Current Medications: Current Medications Medications (Trade) Dose Ordered Sig/Smooth Start Time Stop Time Status Last Admin Dose Admin Albuterol/ Ipratropium (Duoneb) 3 ml 1X ONCE 04/29/20 05:45 04/29/20 05:46 DC 04/29/20 06:09 3 ML Methylprednisolone Sodium Succinate (SOLU-Medrol 125MG VIAL) 125 mg 1X ONCE 04/29/20 05:45 04/29/20 05:46 DC (DANICA SANTANA MD) Allergies: Allergies: Allergies Coded Allergies Type Severity Reaction Last Updated Verified gadopentetate dimeglumine Allergy Severe Anaphylaxis 07/09/14 Yes levofloxacin Allergy Severe Hives 11/09/15 Yes acetaminophen Allergy Intermediate Itching 12/28/17 Yes adhesive Allergy Intermediate Rash 07/09/14 Yes hydrocodone Allergy Intermediate Itching 12/28/17 Yes Sulfa (Sulfonamide Antibiotics) Adverse Reaction Intermediate ABDOMINAL PAIN 07/15/14 Yes diazepam Adverse Reaction Intermediate "MAKES ME CRAZY" 07/15/14 Yes procaine Adverse Reaction Intermediate Nausea and Vomiting 07/15/14 Yes doxycycline Adverse Reaction Mild Nausea and Vomiting 02/16/16 Yes Uncoded Allergies Type Severity Reaction Last Updated Verified "SCENTS" Allergy Severe 03/13/18 (DANICA SANTANA MD) Physical Exam: PE: General: Awake, alert, NAD. Well Nourished, well hydrated. Cooperative HEENT: Atraumatic, EOMI, PERRL, airway patent, moist oral mucosa Neck: Supple, trachea midline Respiratory: Mild tachypnea, diffuse inspiratory and expiratory wheezing CV: RRR, no murmur, cap refill <2 GI: Soft, nondistended, nontender, no masses MSK: No obvious deformities Skin: Warm, dry, intact Neuro: A&O x3, speech NL, sensory and motor grossly intact, no focal deficits Psych: Normal affect, normal mood, not suicidal or homicidal (DANICA SANTANA MD) Current Patient Data: Vital Signs: Vital Signs Date Time Temp Pulse Resp B/P (MAP) Pulse Ox O2 Delivery O2 Flow Rate FiO2 04/29/20 06:10 96 Room Air (DANICA SANTANA MD) Labs: Laboratory Tests Test 04/29/20 06:18 White Blood Count 9.2 x10^3/uL Red Blood Count 4.14 x10^6/uL Hemoglobin 11.3 g/dL Hematocrit 34.5 % Mean Corpuscular Volume 83 fL Mean Corpuscular Hemoglobin 27 pg Mean Corpuscular Hemoglobin Concent 33 g/dL Red Cell Distribution Width 13.6 % Platelet Count 322 x10^3/uL Neutrophils (%) (Auto) 62 % Lymphocytes (%) (Auto) 20 % Monocytes (%) (Auto) 7 % Eosinophils (%) (Auto) 10 % Basophils (%) (Auto) 1 % Neutrophils # (Auto) 5.7 x10^3/uL Lymphocytes # (Auto) 1.9 x10^3/uL Monocytes # (Auto) 0.6 x10^3/uL Eosinophils # (Auto) 0.9 x10^3/uL Basophils # (Auto) 0.1 x10^3/uL Sodium Level 143 mmol/L Potassium Level 3.2 mmol/L Chloride Level 106 mmol/L Carbon Dioxide Level 26 mmol/L Anion Gap 11 Blood Urea Nitrogen 14 mg/dL Creatinine 0.8 mg/dL Estimated GFR (Cockcroft-Gault) 72.0 Glucose Level 133 mg/dL Calcium Level 8.8 mg/dL Current Medications Medications (Trade) Dose Ordered Sig/Smooth Route PRN Reason Start Time Stop Time Status Last Admin Dose Admin Methylprednisolone Sodium Succinate (SOLU-Medrol 125MG VIAL) 125 mg 1X ONCE IV 04/29/20 05:45 04/29/20 05:46 DC 04/29/20 06:21 Albuterol/ Ipratropium (Duoneb) 3 ml 1X ONCE NEB 04/29/20 05:45 04/29/20 05:46 DC 04/29/20 06:09 Potassium Chloride (Klor-Con) 40 meq 1X ONCE PO 04/29/20 07:00 04/29/20 07:01 DC 04/29/20 07:19 Vital Signs: Vital Signs Date Time Temp Pulse Resp B/P (MAP) Pulse Ox O2 Delivery O2 Flow Rate FiO2 04/29/20 06:50 74 120/58 (78) 96 Room Air 04/29/20 06:24 76 124/65 (84) 96 Room Air 04/29/20 06:10 96 Room Air 04/29/20 05:50 78 114/58 (76) 95 Room Air 04/29/20 05:20 86 115/80 (92) 95 Room Air 04/29/20 05:07 98.2 95 22 139/71 (93) 97 Room Air 98.2 (NAHOMY LAI MD) EKG: EKG: [] (DANICA SANTANA MD) Radiology/Procedures: Radiology/Procedures: [] (DANICA SANTANA MD) Radiology/Procedures: [facility] [address] [place], [place] [id number] IMAGING REPORT Signed PATIENT: JAMARCUS HOLDEN ACCOUNT: [id number] : 1955 LOCATION: ER AGE: 64 SEX: F EXAM STATUS: REG ER ORD. PHYSICIAN: DANICA SANTANA MD REASON: sob, HX OF ASTHMA PROCEDURE: CHEST AP ONLY Study: CR CHEST AP ONLY Indication: Shortness of breath. Comparison: 10/24/2019 Findings: Unchanged cardiomediastinal silhouette and felicia. Interstitial lung markings are again prominent but not significant changed. No confluent infiltrate, large effusion or pneumothorax. Scattered granulomas. Impression: No acute radiographic abnormality of the chest. No significant change from 10/24/2019. Electronically signed by: ISHA PERALTA MD (04/29/2020 5:57 AM) [id number] DICTATED and SIGNED BY: ISHA PERALTA MD DATE: 04/29/20 0557 (NAHOMY LAI MD) Course & Med Decision Making: Course & Med Decision Making Pertinent Labs and Imaging studies reviewed. (See chart for details) Patient is a 64-year-old female who presents to the emergency room with wheezing and shortness of breath. This is very consistent with patient's previous episodes of COPD and asthma. Patient does not have any fever or significant productive cough that would be suggestive of pneumonia. Patient will be treated with steroids and DuoNeb treatments here in the emergency room. Patient discussed with oncoming physician who will assume care. (DANICA SANTANA MD) Course & Med Decision Making Received signout from Dr. Santana regarding this globle. Patient has a history of asthma comes in with an asthma exacerbation. Patient received nebulizer in the ER and feels much better. Patient has no fever or infiltrate on x-ray doubt COVID-19. Patient states that she needs a steroid taper and would like to go home. Patient still has some mild wheezing on reassessment. Oxygen levels in the mid 90s. Respirations are nonlabored. Because of patient's history of COPD and asthma concern for acute bacterial infection is present even with a clean chest x-ray therefore she was placed on azithromycin (NAHOMY LAI MD) [place] Disclaimer: Ellyn Disclaimer: This electronic medical record was generated, in whole or in part, using a voice recognition dictation system. (DANICA SANTANA MD) Departure Departure Impression: Primary Impression: Asthma exacerbation Additional Impressions: Hypokalemia Dyspnea Disposition: 01 HOME, SELF-CARE Condition: STABLE Referrals: GAVIOTA RICH MD (PCP) 2-3 days Patient Instructions: Asthma, Adult Additional Instructions: EMERGENCY DEPARTMENT GENERAL DISCHARGE INSTRUCTIONS THANK YOU for coming to [facility] Emergency Department (ED) today and trusting us with your care. We trust that you had a positive experience in our Emergency Department. If you wish to speak to the department Management you can contact the millinery department manager at . YOUR FOLLOW UP INSTRUCTIONS ARE FOLLOWS: Do you have a private doctor? If you do not have a private doctor, please ask for a resource list of physicians or clinics that may be able to assist you with follow up care. The Emergency Physician has interpreted your x-rays. The X-ray specialist will also review them. If there is a change in the findings you will be notified in 48 hours when at all possible. A lab test or lab culture may have been done, your results will be reviewed and you will be notified if you need a change in treatment. ADDITIONAL INSTRUCTIONS AND INFORMATION Your care today has been supervised by a physician who is specially trained in emergency care. Many problems require more than one evaluation for a complete diagnosis and treatment. We recommend that you schedule your follow up appointment as recommended to ensure complete treatment of your illness or injury. If you are unable to obtain follow up care and continue to have a problem, or if your condition worsens we recommend that you return to the ED. We are not able to safely determine your condition over the phone nor are we able to give sound medical advice over the phone. For these safety reasons, if you call for medical advice we will ask you to come to the ED for further evaluation If you have any questions regarding these discharge instructions please call the ED at . SAFETY INFORMATION In the interest of safety, wellness, and injury prevention; we encourage you to wear your seatbelt, if you smoke; quit smoking, and we encourage your family to use protective helmet for bicycling and other sporting events that present an increased risk for head injury. IF YOUR SYMPTOMS WORSEN OR NEW SYMPTOMS DEVELOP, OR YOU HAVE CONCERNS ABOUT YOUR CONDITION; OR IF YOUR CONDITION WORSENS WHILE YOU ARE WAITING FOR YOUR FOLLOW UP APPOINTMENT; EITHER CONTACT YOUR PRIMARY CARE DOCTOR, THE PHYSICIAN WHOSE NAME AND NUMBER YOU WERE GIVEN, OR RETURN TO THE ED IMMEDIATELY. Scripts Methylprednisolone (MEDROL) 4 Mg Tab.ds.pk 1 PKG PO UD, #1 PKG Prov: NAHOMY LAI MD 04/29/20 Azithromycin (ZITHROMAX) 250 Mg Tablet 1 PKG PO UD, #6 TAB Prov: NAHOMY LAI MD 04/29/20 Justicifation of Admission Dx: Justifications for Admission: Justification of Admission Dx: Yes (DANICA SANTANA MD) Justification of Admission Dx: N/A (NAHOMY LAI MD) DANICA SANTANA MD Apr 29, 2020 06:17 NAHOMY LAI MD Apr 29, 2020 06:23
[2020-04-29 06:36] LABS: CALCIUM 8.8 mg/dL (8.5-10.1); CREATININE 0.8 mg/dL (0.6-1.0); POTASSIUM 3.2 mmol/L (3.5-5.1)
[2020-04-29 06:38] LABS: BASO # 0.1 x10^3/uL (0.0-0.2); BASO % 1 % (0-3); EOS # 0.9 x10^3/uL (0.0-0.7); EOS % 10 % (0-3); HEMATOCRIT 34.5 % (36.0-47.0); HEMOGLOBIN 11.3 g/dL (12.0-15.5); LYMPH # 1.9 x10^3/uL (1.0-4.8); LYMPH % 20 % (24-48); MEAN CORPUSCULAR HEMOGLOBIN 27 pg (25-35); MEAN CORPUSCULAR HGB CONC 33 g/dL (31-37); MEAN CORPUSCULAR VOLUME 83 fL (79-100); MONO # 0.6 x10^3/uL (0.0-1.1); MONO % 7 % (0-9); NEUT # 5.7 x10^3/uL (1.8-7.7); NEUT % 62 % (31-73); PLATELET COUNT 322 x10^3/uL (140-400); RED BLOOD COUNT 4.14 x10^6/uL (3.50-5.40); RED CELL DISTRIBUTION WIDTH 13.6 % (11.5-14.5); WHITE BLOOD COUNT 9.2 x10^3/uL (4.0-11.0)
[2020-04-29] MEDS ORDERED: POTASSIUM CHLORIDE 20 MEQ TABLET.ER. PO ONE (07:00)
[2020-04-29 07:20] VITALS: BP 139/80
[2020-04-29] MEDS ORDERED: AZIT250T PO (07:41)
[2020-04-29] MEDS ORDERED: METH4TAB2 PO (07:41)
== END 2020-04-29 07:57 | disposition home or self-care (01) ==
LOC: ER 04:57
DX: J45.901 Unspecified asthma with (acute) exacerbation (principal); E87.6 Hypokalemia; R06.00 Dyspnea, unspecified; R07.89 Other chest pain; M19.90 Unspecified osteoarthritis, unspecified site; M79.7 Fibromyalgia; E03.9 Hypothyroidism, unspecified; Z87.891 Personal history of nicotine dependence; Z90.710 Acquired absence of both cervix and uterus; Z90.89 Acquired absence of other organs; Z88.8 Allergy status to other drugs, medicaments and biological substances; Z88.1 Allergy status to other antibiotic agents; Z88.5 Allergy status to narcotic agent; Z88.2 Allergy status to sulfonamides
CPT/HCPCS: 36415; 71045; 80048; 85025; 94640; 96374; 99285; J2930

== ENCOUNTER 2020-09-18 19:37 | Inpatient (IN) | payer MEDICARE ==
[~2020-09-18] VITALS: Ht 167.6 cm; Wt 94.1 kg
[~2020-09-18 19:37] MED LIST changes: +AZIT250T PO; -LISI-338 PO; +LISI-517 PO; +METH4TAB2 PO
[2020-09-18] MEDS ORDERED: IV NORMAL SALINE 500ML BAG 500 ML IV ONE (20:45)
[2020-09-18] MEDS ORDERED: IPRATRPIUM/ALBUTEROL 0.5/2.5MG 3 ML NEBU. NEB ONE (20:45)
[2020-09-18 20:50] LABS: BASO # 0.1 x10^3/uL (0.0-0.2); BASO % 1 % (0-3); EOS # 0.7 x10^3/uL (0.0-0.7); EOS % 8 % (0-3); HEMATOCRIT 36.9 % (36.0-47.0); HEMOGLOBIN 12.1 g/dL (12.0-15.5); LYMPH % 23 % (24-48); MEAN CORPUSCULAR HEMOGLOBIN 28 pg (25-35); MEAN CORPUSCULAR HGB CONC 33 g/dL (31-37); MEAN CORPUSCULAR VOLUME 84 fL (79-100); MONO # 0.6 x10^3/uL (0.0-1.1); MONO % 7 % (0-9); NEUT # 5.4 x10^3/uL (1.8-7.7); NEUT % 61 % (31-73); PLATELET COUNT 373 x10^3/uL (140-400); RED BLOOD COUNT 4.39 x10^6/uL (3.50-5.40); RED CELL DISTRIBUTION WIDTH 14.2 % (11.5-14.5); WHITE BLOOD COUNT 8.8 x10^3/uL (4.0-11.0)
[2020-09-18] MEDS ORDERED: methylPREDNISolone SOD SUCC PF 125 MG/2 ML VIAL. IV ONE (21:00)
[2020-09-18 21:12] LABS: CALCIUM 9.5 mg/dL (8.5-10.1); CREATININE 1.4 mg/dL (0.6-1.0); GFR 37.7
[2020-09-18 21:16] LABS: ALBUMIN 3.5 g/dL (3.4-5.0); ALBUMIN/GLOBULIN RATIO 0.9 (1.0-1.7); TOTAL BILIRUBIN 0.5 mg/dL (0.2-1.0); TOTAL PROTEIN 7.2 g/dL (6.4-8.2)
--- NOTE | 2020-09-18 21:37 | ED.ADGEN ---
Past Medical History Past Medical History: Arthritis, Asthma, COPD, Fibromyalgia, Hypertension, Hypothyroid Additional Past Medical Histor: Thyroid disease, SLEEP APNEA, ARTHRITIS, fibromyalgia Past Surgical History: Hysterectomy, Tonsillectomy Smoking Status: Former Smoker Alcohol Use: None Drug Use: None General Adult EDM: Chief Complaint: SHORTNESS OF BREATH HPI: HPI: Patient is a 64 year old female coming in for 2 days of shortness of breath the cough productive of small amounts of white phlegm. Patient states using her inhaler and DuoNeb treatments at home without improvement. Patient states she has had a total of 10 DuoNeb treatments today. Denies any known triggers. Denies any fevers, nausea, vomiting, diarrhea. States she otherwise has been well. Review of Systems: Review of Systems: All other systems within normal limits except for as noted in the HPI Current Medications: Current Medications Medications (Trade) Dose Ordered Sig/Smooth Start Time Stop Time Status Last Admin Dose Admin Albuterol/ Ipratropium (Duoneb) 3 ml RTQID 09/19/20 08:00 09/20/20 07:59 Fentanyl Citrate (Fentanyl 2ml Vial) 50 mcg PRN Q1HR PRN 09/19/20 02:00 09/20/20 01:59 Ketorolac Tromethamine (Toradol 15mg Vial) 15 mg 1X ONCE 09/19/20 02:15 09/19/20 02:16 DC Methylprednisolone Sodium Succinate (SOLU-Medrol 125MG VIAL) 125 mg 1X ONCE 09/19/20 00:15 09/19/20 00:16 DC 09/19/20 00:17 125 MG Ondansetron HCl (Zofran) 4 mg PRN Q8HRS PRN 09/19/20 02:00 09/20/20 01:59 Sodium Chloride 500 ml @ 500 mls/hr 1X ONCE 09/19/20 00:00 09/19/20 00:59 DC 09/19/20 00:18 500 MLS/HR Allergies: Allergies: Allergies Coded Allergies Type Severity Reaction Last Updated Verified gadopentetate dimeglumine Allergy Severe Anaphylaxis 07/09/14 Yes levofloxacin Allergy Severe Hives 11/09/15 Yes acetaminophen Allergy Intermediate Itching 12/28/17 Yes adhesive Allergy Intermediate Rash 07/09/14 Yes hydrocodone Allergy Intermediate Itching 12/28/17 Yes Sulfa (Sulfonamide Antibiotics) Adverse Reaction Intermediate ABDOMINAL PAIN 07/15/14 Yes diazepam Adverse Reaction Intermediate "MAKES ME CRAZY" 07/15/14 Yes procaine Adverse Reaction Intermediate Nausea and Vomiting 07/15/14 Yes doxycycline Adverse Reaction Mild Nausea and Vomiting 02/16/16 Yes Uncoded Allergies Type Severity Reaction Last Updated Verified "SCENTS" Allergy Severe 03/13/18 Physical Exam: PE: Constitutional: Well developed, well nourished, no acute distress, non-toxic appearance. [] HENT: Normocephalic, atraumatic, bilateral external ears normal, nose normal. [] Eyes: PERRLA, conjunctiva normal, no discharge. [] Neck: No rigidity, supple, no stridor. [] Cardiovascular: Regular rate and rhythm, brisk cap refill [] Lungs & Thorax: Bilateral expiratory wheezes, no tachypnea. [] Abdomen: Soft, nondistended. Skin: Warm, dry, no erythema, no rash. [] Back: No tenderness, no CVA tenderness. [] Extremities: No deformities, range of motion grossly intact, no lower extremity edema [] Neurologic: Alert and oriented X 3, no focal deficits noted. [] Psychologic: Affect normal, judgement normal, mood normal. [] Current Patient Data: Labs: Laboratory Tests Test 09/18/20 20:30 White Blood Count 8.8 x10^3/uL (4.0-11.0) Red Blood Count 4.39 x10^6/uL (3.50-5.40) Hemoglobin 12.1 g/dL (12.0-15.5) Hematocrit 36.9 % (36.0-47.0) Mean Corpuscular Volume 84 fL (79-100) Mean Corpuscular Hemoglobin 28 pg (25-35) Mean Corpuscular Hemoglobin Concent 33 g/dL (31-37) Red Cell Distribution Width 14.2 % (11.5-14.5) Platelet Count 373 x10^3/uL (140-400) Neutrophils (%) (Auto) 61 % (31-73) Lymphocytes (%) (Auto) 23 % (24-48) L Monocytes (%) (Auto) 7 % (0-9) Eosinophils (%) (Auto) 8 % (0-3) H Basophils (%) (Auto) 1 % (0-3) Neutrophils # (Auto) 5.4 x10^3/uL (1.8-7.7) Lymphocytes # (Auto) 2.0 x10^3/uL (1.0-4.8) Monocytes # (Auto) 0.6 x10^3/uL (0.0-1.1) Eosinophils # (Auto) 0.7 x10^3/uL (0.0-0.7) Basophils # (Auto) 0.1 x10^3/uL (0.0-0.2) D-Dimer (Renu) 0.31 ug/mlFEU (0.00-0.50) Sodium Level 142 mmol/L (136-145) Potassium Level 4.0 mmol/L (3.5-5.1) Chloride Level 106 mmol/L (98-107) Carbon Dioxide Level 22 mmol/L (21-32) Anion Gap 14 (6-14) Blood Urea Nitrogen 17 mg/dL (7-20) Creatinine 1.4 mg/dL (0.6-1.0) H Estimated GFR (Cockcroft-Gault) 37.7 BUN/Creatinine Ratio 12 (6-20) Glucose Level 123 mg/dL (70-99) H Lactic Acid Level 2.5 mmol/L (0.4-2.0) H Calcium Level 9.5 mg/dL (8.5-10.1) Magnesium Level 2.0 mg/dL (1.8-2.4) Total Bilirubin 0.5 mg/dL (0.2-1.0) Aspartate Amino Transferase (AST) 29 U/L (15-37) Alanine Aminotransferase (ALT) 33 U/L (14-59) Alkaline Phosphatase 103 U/L (46-116) Troponin I Quantitative < 0.017 ng/mL (0.000-0.055) SN-Rfa-A-Type Natriuretic Peptide 28 pg/mL (0-124) Total Protein 7.2 g/dL (6.4-8.2) Albumin 3.5 g/dL (3.4-5.0) Albumin/Globulin Ratio 0.9 (1.0-1.7) L Laboratory Tests 09/18/20 20:30 Laboratory Tests 09/18/20 20:30 Vital Signs: Vital Signs Date Time Temp Pulse Resp B/P (MAP) Pulse Ox O2 Delivery O2 Flow Rate FiO2 09/19/20 00:38 98 Room Air 09/18/20 20:10 98.3 95 20 131/89 (103) 98.3 EKG: EKG: Normal sinus rhythm, heart rate 90 bpm, left axis deviation, no ST elevation or depression, no ectopy. [] Heart Score: Risk Factors: Risk Factors: DM, Current or recent (<one month) smoker, HTN, HLP, family history of CAD, obesity. Risk Scores: Score 0 - 3: 2.5% MACE over next 6 weeks - Discharge Home Score 4 - 6: 20.3% MACE over next 6 weeks - Admit for Clinical Observation Score 7 - 10: 72.7% MACE over next 6 weeks - Early Invasive Strategies Radiology/Procedures: Radiology/Procedures: EXAM: AP View of the chest DATE: 09/18/2020 9:20 PM INDICATION: Reason: Dyspnea / Spl. Instructions: / History: COMPARISON: No Prior FINDINGS: The heart is not enlarged. Mediastinal and hilar contours are normal. No focal parenchymal airspace opacity. No pleural effusion or pneumothorax. IMPRESSION: 1. No radiographic evidence for acute cardiopulmonary process. [] Course & Med Decision Making: Course & Med Decision Making Pertinent Labs and Imaging studies reviewed. (See chart for details) [] Dragon Disclaimer: Dragon Disclaimer: This electronic medical record was generated, in whole or in part, using a voice recognition dictation system. Departure Departure Impression: Primary Impression: Asthma exacerbation Disposition: ADMITTED INPT THIS HOSP Admitting Physician: HIMGeraldine Condition: STABLE Referrals: GAVIOTA RICH MD (PCP) MOLINA MORENO MD Sep 18, 2020 21:37
--- NOTE | 2020-09-18 23:13 | RAD ---
EXAM: AP View of the chest DATE: 09/18/2020 9:20 PM INDICATION: Reason: Dyspnea / Spl. Instructions: / History: COMPARISON: No Prior FINDINGS: The heart is not enlarged. Mediastinal and hilar contours are normal. No focal parenchymal airspace opacity. No pleural effusion or pneumothorax. IMPRESSION: 1. No radiographic evidence for acute cardiopulmonary process. Electronically signed by: Jevon Randle MD (09/18/2020 11:10 PM) JOAO
[2020-09-19] MEDS ORDERED: IPRATRPIUM/ALBUTEROL 0.5/2.5MG 3 ML NEBU. NEB ONE
[2020-09-19] MEDS ORDERED: IV NORMAL SALINE 500ML BAG 500 ML IV ONE
[2020-09-19] MEDS ORDERED: methylPREDNISolone SOD SUCC PF 125 MG/2 ML VIAL. IV ONE (00:15)
[2020-09-19] MEDS ORDERED: fentaNYL PF VIAL 100 MCG/2 ML VIAL IVP ONE (00:30)
[2020-09-19] MEDS ORDERED: ONDANSETRON PF 4 MG/2 ML VIAL. IV PRN (02:00)
[2020-09-19] MEDS ORDERED: KETOROLAC 15 MG/ML VIAL. IVP ONE (02:15)
--- NOTE | 2020-09-19 03:05 | NUR ---
Patient HR elevated SVT on monitor (HR- 190/200) Patient agitated and very restless. Patient asymptomatic. VSS. Dr. Kyung arias.
--- NOTE | 2020-09-19 03:27 | NUR ---
Patient continues to be agitated and will not leave telemetry on. Mitts applied which seemed to agitate patient more. Patient already treated with ativan and haldol. Will wait for to call back and to continue to monitor patient.
[2020-09-19 03:30] VITALS: BP 138/76
[2020-09-19] MEDS: IPRATRPIUM/ALBUTEROL 0.5/2.5MG 3 ML NEBU. NEB SCH ×3 (04:10→12:40)
[2020-09-19] MEDS ORDERED: OXYC20TA34 PO (04:13)
[2020-09-19] MEDS ORDERED: GLYB2.5T2 PO (04:13)
[2020-09-19] MEDS ORDERED: IPRA3AMP29 NEB (04:43)
[2020-09-19] MEDS ORDERED: IPRA4AER INH (04:43)
[2020-09-19] MEDS ORDERED: CLOB15CR TP (04:43)
[2020-09-19] MEDS ORDERED: LEVO112T2 PO (04:43)
[2020-09-19] MEDS ORDERED: OXYC10TA PO (04:43)
[2020-09-19] MEDS ORDERED: BACL10TA PO (04:43)
[2020-09-19] MEDS ORDERED: IPRATRPIUM/ALBUTEROL 0.5/2.5MG 3 ML NEBU. NEB STA (05:16)
[2020-09-19] MEDS ORDERED: ALBUTEROL SULFATE 2.5 MG/3 ML NEBU. NEB PRN (05:30)
[2020-09-19] MEDS: fentaNYL PF VIAL 100 MCG/2 ML VIAL IV PRN ×2 (06:00→09:44)
[2020-09-19 07:00] VITALS: BP 115/60
--- NOTE | 2020-09-19 07:59 | NUR ---
PATIENT BELLIGERENTLY COMPLAINING THAT THE NURSE ' MADE HER SICK" WITH HER PERFUME. PT USING RUDE WORDS TO REFER TO THE NURSE. PT ALSO STATES WE SHOULD'T USE THE PERFUMED ROSE GRADER TO CLEAN THE ROOMS. PT THEN GOES ON A LONG TANGENT ABOUT HOW USELESS THE PPE IS. SHE WOULD LIKE TO BE DISCHARGED.
[2020-09-19] MEDS ORDERED: FLU VACC QS 2020-21(6MOS+)/PF 0.5 ML SYRINGE. VAX IM ONE (09:00)
--- NOTE | 2020-09-19 09:43 | CONS ---
DATE OF CONSULTATION: PULMONARY CONSULTATION ATTENDING PHYSICIAN: Vielka Tracey DO. REASON FOR CONSULTATION: Asthma exacerbation. HISTORY OF PRESENT ILLNESS: The patient is very well known to us. She is a 64-year-old female who has a history of COPD overlapped with strong asthmatic component. She has been quarantined herself, mostly since November. She said she had to go out for groceries. She is very sensitive to scents. She probably was exposed to some scents and started to have increasing wheezing and shortness of breath. She says she used at least 10 times nebulizer treatments without any improvement. She has no cough, fever or chills. No chest pains. No nausea, vomiting or diarrhea. She was hospitalized for asthma exacerbation. PAST MEDICAL HISTORY: History of COPD with an asthmatic component, fibromyalgia, hypertension, hypothyroidism, sleep apnea. PAST SURGICAL HISTORY: Hysterectomy, tonsillectomy. ALLERGIES: All reviewed as listed in the MRAD. MEDICATIONS: All reviewed as listed in the MRAD including IV Solu-Medrol that she received in the ER. REVIEW OF SYSTEMS: Ten-point system obtained. Pertinent positives discussed in my history of present illness, otherwise noncontributory. All systems that were negative were reviewed as well. SOCIAL HISTORY: Smoked for 30 years before quitting. FAMILY HISTORY: Noncontributory to lungs. PHYSICAL EXAMINATION: VITAL SIGNS: Reviewed, pulse ox 94% on room air, afebrile. NECK: Supple. LUNGS: With bilateral expiratory wheezes. CARDIOVASCULAR: With a regular rate. ABDOMEN: Soft, nontender. EXTREMITIES: With no pitting edema. LABORATORY DATA: Reviewed. White cell count is 8.8, hemoglobin 12.1 and platelets are 373. BUN 17 and creatinine 1.4. IMPRESSION: 1. Dyspnea secondary to acute exacerbation of chronic obstructive pulmonary disease with an asthmatic component. 2. The patient with chronic obstructive pulmonary disease, overlapped with strong asthmatic component. Now has a trigger of symptoms related to scent exposure. 3. No clinical signs of bronchitis or pneumonia. RECOMMENDATIONS: 1. We will continue with present DuoNebs q.i.d. 2. IV Solu-Medrol. 3. Avoid any exposure to scents. 4. Once bronchospasm improves, likely discharge in the next 24 hours. Discussed with RN. NETTE U. VUONG, MD DR: DAMARIS/twyla JOB#: [id number] / [id number]
--- NOTE | 2020-09-19 10:40 | NUR ---
SW following. Discussed with RN, pt from home, room air, regular diet, independent. Pulmonology consulted - starting IV Solu-Medrol, likely discharge home in the next 24 hours. RN advised no SW needs at this time. SW will continue to follow.
[2020-09-19 11:00] VITALS: BP 121/66
[2020-09-19] MEDS ORDERED: oxyCODONE IR 5 MG TABLET PO PRN (11:00)
--- NOTE | 2020-09-19 12:18 | PDOC1 ---
History and Physical Date of Admission Date of Admission DATE: 09/19/20 TIME: 12:18 Identification/Chief Complaint Chief Complaint SEEN IN ER WITH STATUS ASTHMATICUS 64 year old female coming in for 2 days of shortness of breath the cough productive of small amounts of white phlegm. WAS using her inhaler and DuoNeb treatments at home without improvement. she has had a total of 10 DuoNeb treatments - . Denies any known triggers. Denies any fevers, nausea, vomiting, diarrhea. has 30 pk yrs, but stopped smoking Past Medical History Pulmonary: Asthma, COPD GI: GERD Psych: Depression Rheumatologic: Fibromyalgia Endocrine: Hypothyroidism Past Surgical History Past Surgical History: Tonsillectomy, Hysterectomy Family History Family History: Hypertension Social History Smoke: Quit ALCOHOL: none Drugs: None Current Medications Current Medications Current Medications Sodium Chloride 500 ml @ 500 mls/hr 1X ONCE IV Last administered on 09/18/20at 20:54; Start 09/18/20 at 20:45; Stop 09/18/20 at 21:44; Status DC Albuterol/ Ipratropium (Duoneb) 3 ml 1X ONCE NEB Last administered on 09/18/20at 21:11; Start 09/18/20 at 20:45; Stop 09/18/20 at 20:46; Status DC Methylprednisolone Sodium Succinate (SOLU-Medrol 125MG VIAL) 125 mg 1X ONCE IV Last administered on 09/18/20at 22:02; Start 09/18/20 at 21:00; Stop 09/18/20 at 21:01; Status DC Albuterol/ Ipratropium (Duoneb) 3 ml 1X ONCE NEB Last administered on 09/19/20at 00:00; Start 09/19/20 at 00:00; Stop 09/19/20 at 00:01; Status DC Sodium Chloride 500 ml @ 500 mls/hr 1X ONCE IV Last administered on 09/19/20at 00:18; Start 09/19/20 at 00:00; Stop 09/19/20 at 00:59; Status DC Methylprednisolone Sodium Succinate (SOLU-Medrol 125MG VIAL) 125 mg 1X ONCE IV Last administered on 09/19/20at 00:17; Start 09/19/20 at 00:15; Stop 09/19/20 at 00:16; Status DC Fentanyl Citrate (Fentanyl 2ml Vial) 75 mcg 1X ONCE IVP Last administered on 09/19/20at 00:33; Start 09/19/20 at 00:30; Stop 09/19/20 at 00:40; Status DC Ondansetron HCl (Zofran) 4 mg PRN Q8HRS PRN IV NAUSEA/VOMITING; Start 09/19/20 at 02:00; Stop 09/20/20 at 01:59 Fentanyl Citrate (Fentanyl 2ml Vial) 50 mcg PRN Q1HR PRN IV PAIN Last administered on 09/19/20at 09:44; Start 09/19/20 at 02:00; Stop 09/20/20 at 01:59 Albuterol/ Ipratropium (Duoneb) 3 ml RTQID NEB Last administered on 09/19/20at 07:57; Start 09/19/20 at 08:00; Stop 09/20/20 at 07:59 Ketorolac Tromethamine (Toradol 15mg Vial) 15 mg 1X ONCE IVP ; Start 09/19/20 at 02:15; Stop 09/19/20 at 02:16; Status DC Albuterol/ Ipratropium (Duoneb) 3 ml RTQID STAT NEB ; Start 09/19/20 at 05:16; Stop 09/19/20 at 05:22; Status DC Albuterol Sulfate (Ventolin Neb Soln) 2.5 mg PRN QID PRN NEB SHORTNESS OF BREATH; Start 09/19/20 at 05:30 Influenza Virus Vaccine Quadrival (Fluzone Quad [id number] Syringe) 0.5 ml ONCE ONCE VAX IM ; Start 09/19/20 at 09:00; Stop 09/19/20 at 09:01; Status DC Methylprednisolone Sodium Succinate (SOLU-Medrol 40MG VIAL) 60 mg Q8HRS IV ; Start 09/19/20 at 14:00 Oxycodone HCl (Roxicodone) 10 mg PRN Q8HRS PRN PO PAIN; Start 09/19/20 at 11:00 Active Scripts Active Tessalon Perle (Benzonatate) 100 Mg Capsule 1 Cap PO TID Reported Clobetasol Propionate 15 Gm Cream..g. 1 Chanel TP Q2HR PRN Synthroid (Levothyroxine Sodium) 112 Mcg Tablet 1 Tab PO DAILY Oxycodone Hcl Immed.release (Oxycodone Hcl) 10 Mg Tablet 1 Tab PO Q6HRS PRN Duoneb 0.5-3(2.5) Mg/3 Ml (Albuterol/Ipratropium) 3 Ml Ampul.neb 1 Puff NEB Q4HRS PRN Combivent Respimat Inhal (Ipratropium/Albuterol Sulfate) 4 Gm Aer.w.adap 2 Inh INH Q4-6HRS PRN Baclofen 10 Mg Tablet 1 Tab PO TID PRN Glyburide 2.5 Mg Tablet 1 Tab PO DAILY Atorvastatin Calcium 20 Mg Tablet 2 Tab PO HS 30 Days Lisinopril 5 Mg Tablet 1 Tab PO DAILY 30 Days Aspirin Ec (Aspirin) 81 Mg Tablet. 1 Tab PO DAILY Daliresp (Roflumilast) 500 Mcg Tablet 1 Tab PO DAILY Ambien (Zolpidem Tartrate) 5 Mg Tablet 1 Tab PO PRN QHS PRN Fiber (Psyllium Husk) 0.52 Gm Capsule 0.52 Gm PO PRN DAILY PRN Vitamin D (Cholecalciferol (Vitamin D3)) 2,000 Unit Capsule 5,000 Unit PO DAILY Alprazolam 1 Mg Tablet 1 Tab PO TID PRN Cetirizine Hcl 10 Mg Tablet 10 Mg PO DAILY Fibercon (Calcium Polycarbophil) 625 Mg Tablet 625 Mg PO PRN DAILY Protonix Packet (Pantoprazole Sodium) 40 Mg Granpkt. 40 Mg PO DAILY08 Singulair Tablet (Montelukast Sodium) 10 Mg Tablet 10 Mg PO DAILY Levothyroxine Sodium 100 Mcg Tablet 112 Mcg PO DAILY Benadryl (Diphenhydramine Hcl) 25 Mg Capsule 25-50 Mg PO PRN Q4HRS Cromolyn Sodium 20 Mg/2 Ml Ampul.neb 20 Mg IH PRN Q4HRS Symbicort 160-4.5 Mcg Inhaler (Budesonide/Formoterol Fumarate) 10.2 Gm Hfa.aer.ad 10.2 Gm IH BID Duoneb 0.5 Mg-3 Mg/3 Ml Soln (Ipratropium/Albuterol Sulfate) 3 Ml Ampul.neb 3 Ml IH Q4HRS Allergies Allergies: Coded Allergies: gadopentetate dimeglumine (Verified Allergy, Severe, Anaphylaxis, 07/09/14) levofloxacin (Verified Allergy, Severe, Hives, 11/09/15) acetaminophen (Verified Allergy, Intermediate, Itching, 12/28/17) Patient has received hydrocodone/APAP and can tolerate Crocker brand the best. Other film tests checker products cause her to itch based on the excipients that are used. Even the brand name products cause her to have itching. adhesive (Verified Allergy, Intermediate, Rash, 07/09/14) hydrocodone (Verified Allergy, Intermediate, Itching, 12/28/17) Patient has received hydrocodone/APAP and can tolerate Crocker brand the best. Other film tests checker products cause her to itch based on the excipients that are used. Even the brand name products cause her to have itching. Sulfa (Sulfonamide Antibiotics) (Verified Adverse Reaction, Intermediate, ABDOMINAL PAIN, 07/15/14) diazepam (Verified Adverse Reaction, Intermediate, "MAKES ME CRAZY", 07/15/14) procaine (Verified Adverse Reaction, Intermediate, Nausea and Vomiting, 1 09/14/13) doxycycline (Verified Adverse Reaction, Mild, Nausea and Vomiting, 02/16/16) Uncoded Allergies: "SCENTS" (Allergy, Severe, 03/13/18) ROS Review of System 14 PT ROS OTHERWISE NEG General: No: Chills, Night Sweats, Fatigue, Malaise, Appetite, Other PSYCHOLOGICAL ROS: No: Anxiety, Behavioral Disorder, Concentration difficultie, Decreased libido, Depression, Disorientation, Hallucinations, Hostility, Irritablity, Memory difficulties, Mood Swings, Obsessive thoughts, Physical abuse, Sexual abuse, Sleep disturbances, Suicidal ideation, Other Eyes: No Blurry vision, No Decreased vision, No Double vision, No Dry eyes, No Excessive tearing, No Eye Pain, No Itchy Eyes, No Loss of vision, No Photophobia, No Scotomata, No Uses contacts, No Uses glasses, No Other ALLERGY AND IMMUNOLOGY: No: Hives, Insect Bite Sensitivity, Itchy/Watery Eyes, Nasal Congestion, Post Nasal Drip, Seasonal Allergies, Other Hematological and Lymphatic: No: Bleeding Problems, Blood Clots, Blood Transfusions, Brusing, Night Sweats, Pallor, Swollen Lymph Nodes, Other ENDOCRINE: No: Breast Changes, Galactorrhea, Hair Pattern Changes, Hot Flashes, Malaise/lethargy, Mood Swings, Palpitations, Polydipsia/polyuria, Skin Changes, Temperature Intolerance, Unexpected Weight Changes, Other Breast: No New/Changing Breast Lumps, No Nipple changes, No Nipple discharge, No Other Respiratory: YES: Cough, Shortness of breath, SOB with excertion, Sputum Changes; No: Hemoptysis, Orthopnea, Pleuritic Pain, Stridor, Tachypnea, Wheezing, Other Cardiovascular: No Chest Pain, No Palpitations, No Orthopnea, No Paroxysmal Noc. Dyspnea, No Edema, No Lt Headedness, No Other Gastrointestinal: No Nausea, No Vomiting, No Abdominal Pain, No Diarrhea, No Constipation, No Melena, No Hematochezia, No Other Genitourinary: No Dysuria, No Frequency, No Incontinence, No Hematuria, No Retention, No Discharge, No Urgency, No Pain, No Flank Pain, No Other, No , No , No , No , No , No , No Musculoskeletal: No Gait Disturbance, No Joint Pain, No Joint Stiffness, No Joint Swelling, No Muscle Pain, No Muscular Weakness, No Pain In:, No Swelling In:, No Other Neurological: No Behavorial Changes, No Bowel/Bladder ControlChng, No Confusion, No Dizziness, No Gait Disturbance, No Headaches, No Impaired Coord/balance, No Memory Loss, No Numbness/Tingling, No Seizures, No Speech Problems, No Tremors, No Visual Changes, No Weakness, No Other Skin: No Dry Skin, No Eczema, No Hair Changes, No Lumps, No Mole Changes, No Mottling, No Nail Changes, No Pruritus, No Rash, No Skin Lesion Changes, No Other, No Acne Physical Exam Physical Exam Neck: No rigidity, supple, no stridor. [] Cardiovascular: Regular rate and rhythm, brisk cap refill [] Lungs & Thorax: Bilateral expiratory wheezes, no tachypnea. [] Abdomen: Soft, nondistended. Skin: Warm, dry, no erythema, no rash. [] Back: No tenderness, no CVA tenderness. [] Extremities: No deformities, range of motion grossly intact, no lower extremity edema [] Neurologic: Alert and oriented X 3, no focal deficits noted. [] Psychologic: Affect normal, judgement normal, mood normal. [] General: Alert, Oriented X3, Cooperative, No acute distress HEENT: Mucous membr. moist/pink Heart: no thrills Breasts: Not examined Abdomen: Normal bowel sounds, Soft Rectal Exam: not examined PELVIC: Examination not indicated Extremities: No cyanosis Neuro: Normal speech, Sensation intact, Cranial nerves 3-12 NL Psych/Mental Status: Mental status NL, Mood NL Vitals Vitals Vital Signs Date Time Temp Pulse Resp B/P (MAP) Pulse Ox O2 Delivery O2 Flow Rate FiO2 09/19/20 11:00 97.1 97 18 121/66 (84) 94 Room Air 97.1 Labs Labs Laboratory Tests Test 09/18/20 20:30 White Blood Count 8.8 x10^3/uL (4.0-11.0) Red Blood Count 4.39 x10^6/uL (3.50-5.40) Hemoglobin 12.1 g/dL (12.0-15.5) Hematocrit 36.9 % (36.0-47.0) Mean Corpuscular Volume 84 fL (79-100) Mean Corpuscular Hemoglobin 28 pg (25-35) Mean Corpuscular Hemoglobin Concent 33 g/dL (31-37) Red Cell Distribution Width 14.2 % (11.5-14.5) Platelet Count 373 x10^3/uL (140-400) Neutrophils (%) (Auto) 61 % (31-73) Lymphocytes (%) (Auto) 23 % (24-48) Monocytes (%) (Auto) 7 % (0-9) Eosinophils (%) (Auto) 8 % (0-3) Basophils (%) (Auto) 1 % (0-3) Neutrophils # (Auto) 5.4 x10^3/uL (1.8-7.7) Lymphocytes # (Auto) 2.0 x10^3/uL (1.0-4.8) Monocytes # (Auto) 0.6 x10^3/uL (0.0-1.1) Eosinophils # (Auto) 0.7 x10^3/uL (0.0-0.7) Basophils # (Auto) 0.1 x10^3/uL (0.0-0.2) D-Dimer (Renu) 0.31 ug/mlFEU (0.00-0.50) Sodium Level 142 mmol/L (136-145) Potassium Level 4.0 mmol/L (3.5-5.1) Chloride Level 106 mmol/L (98-107) Carbon Dioxide Level 22 mmol/L (21-32) Anion Gap 14 (6-14) Blood Urea Nitrogen 17 mg/dL (7-20) Creatinine 1.4 mg/dL (0.6-1.0) Estimated GFR (Cockcroft-Gault) 37.7 BUN/Creatinine Ratio 12 (6-20) Glucose Level 123 mg/dL (70-99) Lactic Acid Level 2.5 mmol/L (0.4-2.0) Calcium Level 9.5 mg/dL (8.5-10.1) Magnesium Level 2.0 mg/dL (1.8-2.4) Total Bilirubin 0.5 mg/dL (0.2-1.0) Aspartate Amino Transf (AST/SGOT) 29 U/L (15-37) Alanine Aminotransferase (ALT/SGPT) 33 U/L (14-59) Alkaline Phosphatase 103 U/L (46-116) Troponin I Quantitative < 0.017 ng/mL (0.000-0.055) BG-Lgh-Q-Type Natriuretic Peptide 28 pg/mL (0-124) Total Protein 7.2 g/dL (6.4-8.2) Albumin 3.5 g/dL (3.4-5.0) Albumin/Globulin Ratio 0.9 (1.0-1.7) Laboratory Tests Test 09/18/20 20:30 White Blood Count 8.8 x10^3/uL (4.0-11.0) Red Blood Count 4.39 x10^6/uL (3.50-5.40) Hemoglobin 12.1 g/dL (12.0-15.5) Hematocrit 36.9 % (36.0-47.0) Mean Corpuscular Volume 84 fL (79-100) Mean Corpuscular Hemoglobin 28 pg (25-35) Mean Corpuscular Hemoglobin Concent 33 g/dL (31-37) Red Cell Distribution Width 14.2 % (11.5-14.5) Platelet Count 373 x10^3/uL (140-400) Neutrophils (%) (Auto) 61 % (31-73) Lymphocytes (%) (Auto) 23 % (24-48) Monocytes (%) (Auto) 7 % (0-9) Eosinophils (%) (Auto) 8 % (0-3) Basophils (%) (Auto) 1 % (0-3) Neutrophils # (Auto) 5.4 x10^3/uL (1.8-7.7) Lymphocytes # (Auto) 2.0 x10^3/uL (1.0-4.8) Monocytes # (Auto) 0.6 x10^3/uL (0.0-1.1) Eosinophils # (Auto) 0.7 x10^3/uL (0.0-0.7) Basophils # (Auto) 0.1 x10^3/uL (0.0-0.2) D-Dimer (Renu) 0.31 ug/mlFEU (0.00-0.50) Sodium Level 142 mmol/L (136-145) Potassium Level 4.0 mmol/L (3.5-5.1) Chloride Level 106 mmol/L (98-107) Carbon Dioxide Level 22 mmol/L (21-32) Anion Gap 14 (6-14) Blood Urea Nitrogen 17 mg/dL (7-20) Creatinine 1.4 mg/dL (0.6-1.0) Estimated GFR (Cockcroft-Gault) 37.7 BUN/Creatinine Ratio 12 (6-20) Glucose Level 123 mg/dL (70-99) Lactic Acid Level 2.5 mmol/L (0.4-2.0) Calcium Level 9.5 mg/dL (8.5-10.1) Magnesium Level 2.0 mg/dL (1.8-2.4) Total Bilirubin 0.5 mg/dL (0.2-1.0) Aspartate Amino Transf (AST/SGOT) 29 U/L (15-37) Alanine Aminotransferase (ALT/SGPT) 33 U/L (14-59) Alkaline Phosphatase 103 U/L (46-116) Troponin I Quantitative < 0.017 ng/mL (0.000-0.055) AQ-Hjw-O-Type Natriuretic Peptide 28 pg/mL (0-124) Total Protein 7.2 g/dL (6.4-8.2) Albumin 3.5 g/dL (3.4-5.0) Albumin/Globulin Ratio 0.9 (1.0-1.7) Images Images PATIENT: JAMARCUS HOLDEN ACCOUNT: [id number] : 1955 LOCATION: ER AGE: 64 SEX: F EXAM STATUS: REG ER ORD. PHYSICIAN: MOLINA MORENO MD REASON: Dyspnea PROCEDURE: CHEST AP ONLY EXAM: AP View of the chest DATE: 09/18/2020 9:20 PM INDICATION: Reason: Dyspnea / Spl. Instructions: / History: COMPARISON: No Prior FINDINGS: The heart is not enlarged. Mediastinal and hilar contours are normal. No focal parenchymal airspace opacity. No pleural effusion or pneumothorax. IMPRESSION: 1. No radiographic evidence for acute cardiopulmonary process. Electronically signed by: Jevon Harrell MD (09/18/2020 11:10 PM) [facility] DICTATED and SIGNED BY: JEVON HARRELL MD DATE: 09/18/20 [id number] VTE Prophylaxis Ordered VTE Prophylaxis Devices: Yes VTE Pharmacological Prophylaxi: Yes Assessment/Plan Assessment/Plan Impression: Asthma exacerbation, ACUTE MORBID OBESITY Acute respiratory failure chronic pain syndrome diabetes hypothyroid on oral replacement COPD EXAC ADMITTED o2 support pulm consult albuterol q 4 hrs prn dvt prophylaxis IV SOLUMEDROL TAPER GI PROPHYLAXIS Justifications for Admission Other Justification ERICA HERNANDEZ MD Sep 19, 2020 12:18
[2020-09-19] MEDS: methylPREDNISolone SOD SUCC PF 40 MG/ML VIAL. IV SCH ×2 (12:56→20:38)
[2020-09-19] MEDS ORDERED: ZOLPIDEM 5 MG TABLET. PO PRN (13:45)
[2020-09-19] MEDS ORDERED: ALPRAZolam 1 MG TABLET PO PRN (13:45)
[2020-09-19] MEDS ORDERED: NON FORMULARY ITEM (Ipratropium/Albuterol Sulfate (Combivent Respimat Inhal) 2 INH) INH PRN (13:45)
[2020-09-19] MEDS ORDERED: BACLOFEN 10 MG TABLET. PO PRN (13:45)
[2020-09-19] MEDS ORDERED: CALCIUM POLYCARBOPHIL 625 MG TABLET PO PRN (13:45)
[2020-09-19] MEDS ORDERED: IPRATRPIUM/ALBUTEROL 0.5/2.5MG 3 ML NEBU. NEB PRN (13:45)
[2020-09-19] MEDS ORDERED: CROMOLYN SODIUM IH SCH (13:45)
[2020-09-19] MEDS ORDERED: CLOBETASOL EMOLLIENT 0.05% TOPICAL CREAM 15GM TUBE. TP PRN (14:00)
[2020-09-19] MEDS ORDERED: PSYLLIUM HUSK (SUGAR FREE) 1 PKT PACKET PO PRN (14:00)
[2020-09-19] MEDS ORDERED: guaiFENesin ORAL 200 MG/10 ML LIQUID. PO PRN (14:45)
[2020-09-19] MEDS ORDERED: DOCUSATE SODIUM 100 MG CAPSULE. PO PRN (14:45)
[2020-09-19] MEDS ORDERED: MAG HYDROX/ALUMINUM HYD/SIMETH 30 ML ORAL.SUSP PO PRN (14:45)
[2020-09-19] MEDS ORDERED: ACETAMINOPHEN 325 MG TABLET. PO PRN (14:45)
[2020-09-19] MEDS ORDERED: 0.9 % SODIUM CHLORIDE 10 ML DISP.SYRIN. IV PRN (14:45)
[2020-09-19] MEDS ORDERED: SODIUM PHOSPHATES 19/7GM 133 ML ENEMA. PR PRN (14:45)
[2020-09-19 15:00] VITALS: BP 129/75
[2020-09-19] MEDS: LEVOTHYROXINE 112 MCG TABLET PO SCH (15:13)
[2020-09-19] MEDS: CHOLECALCIFEROL (VITAMIN D3) 5,000 UNIT CAPSULE PO SCH (15:13)
[2020-09-19] MEDS: CETIRIZINE HCL 10 MG TABLET. PO SCH (15:14)
[2020-09-19] MEDS: ASPIRIN ENTERIC COATED 81 MG TABLET.DR. PO SCH (15:14)
[2020-09-19] MEDS: glyBURIDE 5 MG TABLET PO SCH (15:14)
[2020-09-19] MEDS: BENZONATATE 100 MG CAPSULE. PO SCH ×2 (15:14→20:37)
[2020-09-19] MEDS: LISINOPRIL 5 MG TABLET. PO SCH (15:14)
[2020-09-19] MEDS: ROFLUMILAST 500 MCG TABLET. PO SCH (15:14)
[2020-09-19] MEDS: ENOXAPARIN 40 MG/0.4 ML SYRINGE. SQ SCH (15:15)
[2020-09-19] MEDS: ONDANSETRON PF 4 MG/2 ML VIAL. IV PRN (15:18)
[2020-09-19] MEDS: IPRATRPIUM/ALBUTEROL 0.5/2.5MG 3 ML NEBU. IH SCH ×2 (16:47→20:18)
[2020-09-19 19:00] VITALS: BP 112/53
[2020-09-19] MEDS: BUDESONIDE 0.5 MG/2 ML NEBU. NEB SCH (20:18)
[2020-09-19] MEDS: MONTELUKAST SODIUM 10 MG TABLET. PO SCH (20:37)
[2020-09-19] MEDS: oxyCODONE IR 5 MG TABLET PO PRN (20:37)
[2020-09-19] MEDS: ATORVASTATIN CALCIUM 40 MG TABLET. PO SCH (20:37)
[2020-09-19 23:00] VITALS: BP 96/49
[2020-09-20 03:00] VITALS: BP 102/66
[2020-09-20] MEDS: IPRATRPIUM/ALBUTEROL 0.5/2.5MG 3 ML NEBU. IH SCH ×7 (04:00→23:50)
[2020-09-20] MEDS: LEVOTHYROXINE 112 MCG TABLET PO SCH (06:17)
[2020-09-20] MEDS: methylPREDNISolone SOD SUCC PF 40 MG/ML VIAL. IV SCH ×3 (06:17→21:07)
[2020-09-20 07:00] VITALS: BP 104/68
[2020-09-20] MEDS: LISINOPRIL 5 MG TABLET. PO SCH (07:07)
[2020-09-20] MEDS: ASPIRIN ENTERIC COATED 81 MG TABLET.DR. PO SCH (07:07)
[2020-09-20] MEDS: PANTOPRAZOLE 40 MG TABLET.DR. PO SCH (07:07)
[2020-09-20] MEDS: oxyCODONE IR 5 MG TABLET PO PRN ×3 (07:08→21:08)
[2020-09-20] MEDS: BENZONATATE 100 MG CAPSULE. PO SCH ×3 (07:08→21:08)
[2020-09-20] MEDS: glyBURIDE 5 MG TABLET PO SCH (07:08)
[2020-09-20] MEDS: CHOLECALCIFEROL (VITAMIN D3) 5,000 UNIT CAPSULE PO SCH (07:08)
[2020-09-20] MEDS: CETIRIZINE HCL 10 MG TABLET. PO SCH (07:08)
[2020-09-20] MEDS: ROFLUMILAST 500 MCG TABLET. PO SCH (07:08)
[2020-09-20] MEDS: BUDESONIDE 0.5 MG/2 ML NEBU. NEB SCH ×2 (07:19→19:23)
--- NOTE | 2020-09-20 08:31 | PDOC ---
PULMONARY PROGRESS NOTES DATE: 09/20/20 TIME: 08:31 Subjective Patient remains on room air Reports a coughing/shortness of breath episode secondary to nursing staff perfume this morning Vitals Vital Signs Date Time Temp Pulse Resp B/P (MAP) Pulse Ox O2 Delivery O2 Flow Rate FiO2 09/20/20 07:19 98 Room Air 09/20/20 07:07 90 102/66 09/20/20 07:00 16 09/20/20 03:00 97.6 97.6 ROS: No Nausea, No Chest Pain, No Abdominal Pain General: Alert Lungs: Wheezing Cardiovascular: S1, S2 Abdomen: Soft Extremities: No Edema Labs Laboratory Tests Test 09/18/20 20:30 White Blood Count 8.8 x10^3/uL (4.0-11.0) Red Blood Count 4.39 x10^6/uL (3.50-5.40) Hemoglobin 12.1 g/dL (12.0-15.5) Hematocrit 36.9 % (36.0-47.0) Mean Corpuscular Volume 84 fL (79-100) Mean Corpuscular Hemoglobin 28 pg (25-35) Mean Corpuscular Hemoglobin Concent 33 g/dL (31-37) Red Cell Distribution Width 14.2 % (11.5-14.5) Platelet Count 373 x10^3/uL (140-400) Neutrophils (%) (Auto) 61 % (31-73) Lymphocytes (%) (Auto) 23 % (24-48) Monocytes (%) (Auto) 7 % (0-9) Eosinophils (%) (Auto) 8 % (0-3) Basophils (%) (Auto) 1 % (0-3) Neutrophils # (Auto) 5.4 x10^3/uL (1.8-7.7) Lymphocytes # (Auto) 2.0 x10^3/uL (1.0-4.8) Monocytes # (Auto) 0.6 x10^3/uL (0.0-1.1) Eosinophils # (Auto) 0.7 x10^3/uL (0.0-0.7) Basophils # (Auto) 0.1 x10^3/uL (0.0-0.2) D-Dimer (Renu) 0.31 ug/mlFEU (0.00-0.50) Sodium Level 142 mmol/L (136-145) Potassium Level 4.0 mmol/L (3.5-5.1) Chloride Level 106 mmol/L (98-107) Carbon Dioxide Level 22 mmol/L (21-32) Anion Gap 14 (6-14) Blood Urea Nitrogen 17 mg/dL (7-20) Creatinine 1.4 mg/dL (0.6-1.0) Estimated GFR (Cockcroft-Gault) 37.7 BUN/Creatinine Ratio 12 (6-20) Glucose Level 123 mg/dL (70-99) Lactic Acid Level 2.5 mmol/L (0.4-2.0) Calcium Level 9.5 mg/dL (8.5-10.1) Magnesium Level 2.0 mg/dL (1.8-2.4) Total Bilirubin 0.5 mg/dL (0.2-1.0) Aspartate Amino Transf (AST/SGOT) 29 U/L (15-37) Alanine Aminotransferase (ALT/SGPT) 33 U/L (14-59) Alkaline Phosphatase 103 U/L (46-116) Troponin I Quantitative < 0.017 ng/mL (0.000-0.055) UM-Exa-L-Type Natriuretic Peptide 28 pg/mL (0-124) Total Protein 7.2 g/dL (6.4-8.2) Albumin 3.5 g/dL (3.4-5.0) Albumin/Globulin Ratio 0.9 (1.0-1.7) Medications Active Scripts Medications Dose Route/Sig Max Daily Dose Days Date Category Clobetasol Propionate 15 Gm Cream..g. 1 Chanel TP Q2HR PRN 09/19/20 Reported Synthroid (Levothyroxine Sodium) 112 Mcg Tablet 1 Tab PO DAILY 09/19/20 Reported Oxycodone Hcl Immed.release (Oxycodone Hcl) 10 Mg Tablet 1 Tab PO Q6HRS PRN 09/19/20 Reported Duoneb 0.5-3(2.5) Mg/3 Ml (Albuterol/Ipratropium) 3 Ml Ampul.neb 1 Puff NEB Q4HRS PRN 09/19/20 Reported Combivent Respimat Inhal (Ipratropium/Albuterol Sulfate) 4 Gm Aer.w.adap 2 Inh INH Q4-6HRS PRN 09/19/20 Reported Baclofen 10 Mg Tablet 1 Tab PO TID PRN 09/19/20 Reported Glyburide 2.5 Mg Tablet 1 Tab PO DAILY 09/19/20 Reported Atorvastatin Calcium 20 Mg Tablet 2 Tab PO HS 30 10/26/19 Reported Lisinopril 5 Mg Tablet 1 Tab PO DAILY 30 10/26/19 Reported Aspirin Ec (Aspirin) 81 Mg Tablet.dr 1 Tab PO DAILY 10/26/19 Reported Tessalon Perle (Benzonatate) 100 Mg Capsule 1 Cap PO TID 08/08/18 Rx Daliresp (Roflumilast) 500 Mcg Tablet 1 Tab PO DAILY 02/12/16 Reported Ambien (Zolpidem Tartrate) 5 Mg Tablet 1 Tab PO PRN QHS PRN 09/17/14 Reported Fiber (Psyllium Husk) 0.52 Gm Capsule 0.52 Gm PO PRN DAILY PRN 07/10/14 Reported Vitamin D (Cholecalciferol (Vitamin D3)) 2,000 Unit Capsule 5,000 Unit PO DAILY 06/10/14 Reported Alprazolam 1 Mg Tablet 1 Tab PO TID PRN 06/10/14 Reported Cetirizine Hcl 10 Mg Tablet 10 Mg PO DAILY 03/23/14 Reported Fibercon (Calcium Polycarbophil) 625 Mg Tablet 625 Mg PO PRN DAILY 08/06/13 Reported Protonix Packet (Pantoprazole Sodium) 40 Mg Granpkt.dr 40 Mg PO DAILY08 08/06/13 Reported Singulair Tablet (Montelukast Sodium) 10 Mg Tablet 10 Mg PO DAILY 08/06/13 Reported Levothyroxine Sodium 100 Mcg Tablet 112 Mcg PO DAILY 08/06/13 Reported Benadryl (Diphenhydramine Hcl) 25 Mg Capsule 25-50 Mg PO PRN Q4HRS 08/06/13 Reported Cromolyn Sodium 20 Mg/2 Ml Ampul.neb 20 Mg IH PRN Q4HRS 08/06/13 Reported Symbicort 160-4.5 Mcg Inhaler (Budesonide/Formoterol Fumarate) 10.2 Gm Hfa.aer.ad 10.2 Gm IH BID 08/06/13 Reported Duoneb 0.5 Mg-3 Mg/3 Ml Soln (Ipratropium/Albuterol Sulfate) 3 Ml Ampul.neb 3 Ml IH Q4HRS 08/06/13 Reported Comments CXR IMPRESSION: 1. No radiographic evidence for acute cardiopulmonary process. Impression . IMPRESSION: 1. Dyspnea secondary to acute exacerbation of chronic obstructive pulmonary disease with an asthmatic component. 2. The patient with chronic obstructive pulmonary disease, overlapped with strong asthmatic component. Now has a trigger of symptoms related to scent exposure. 3. No clinical signs of bronchitis or pneumonia. Plan . RECOMMENDATIONS: Continue steroids Continue duo nebs 4 times daily and as needed Avoid any exposure to scent/perfume Patient can discharge once bronchospasms improve Physical therapy/Occupational Therapy DVT/GI prophylaxis Discussed with KAREN PERERA MD Sep 20, 2020 08:31
--- NOTE | 2020-09-20 08:33 | PDOC ---
PROGRESS NOTES Date of Service: DATE: 09/20/20 TIME: 08:32 Chief Complaint Chief Complaint Assessment/Plan Assessment/Plan Impression: Asthma exacerbation, ACUTE MORBID OBESITY Acute respiratory failure chronic pain syndrome diabetes hypothyroid on oral replacement COPD EXAC allergy to perfumes and scents One vessel CAD involving the LCx. post stent ADMITTED o2 support pulm consult albuterol q 4 hrs prn dvt prophylaxis IV SOLUMEDROL TAPER GI PROPHYLAXIS ekg cardiology consult due to cad hx / dyspnea 08/20 REMAINS TO HAVE MODERATE EXP WHEEXES BILATERALLY Justifications for Admission status asthmaticus, copd exac History of Present Illness History of Present Illness Identification/Chief Complaint Chief Complaint SEEN IN ER WITH STATUS ASTHMATICUS 64 year old female coming in for 2 days of shortness of breath the cough productive of small amounts of white phlegm. WAS using her inhaler and DuoNeb treatments at home without improvement. she has had a total of 10 DuoNeb treatments - . Denies any known triggers. Denies any fevers, nausea, vomiting, diarrhea. has 30 pk yrs, but stopped smoking Past Medical History Pulmonary: Asthma, COPD GI: GERD Psych: Depression Rheumatologic: Fibromyalgia Endocrine: Hypothyroidism Past Surgical History Past Surgical History: Tonsillectomy, Hysterectomy Family History Family History: Hypertension Social History Smoke: Quit ALCOHOL: none Drugs: None Current Medications Vitals Vitals Vital Signs Date Time Temp Pulse Resp B/P (MAP) Pulse Ox O2 Delivery O2 Flow Rate FiO2 09/20/20 07:19 98 Room Air 09/20/20 07:07 90 102/66 09/20/20 07:00 16 09/20/20 03:00 97.6 97.6 Physical Exam Physical Exam Physical Exam Neck: No rigidity, supple, no stridor. [] Cardiovascular: Regular rate and rhythm, brisk cap refill [] Lungs & Thorax: Bilateral expiratory wheezes, no tachypnea. [] Abdomen: Soft, nondistended. Skin: Warm, dry, no erythema, no rash. [] Back: No tenderness, no CVA tenderness. [] Extremities: No deformities, range of motion grossly intact, no lower extremity edema [] Neurologic: Alert and oriented X 3, no focal deficits noted. [] Psychologic: Affect normal, judgement normal, mood normal. [] General: Alert, Oriented X3, Cooperative, No acute distress HEENT: Mucous membr. moist/pink Heart: no thrills Breasts: Not examined Abdomen: Normal bowel sounds, Soft Rectal Exam: not examined PELVIC: Examination not indicated Extremities: No cyanosis Neuro: Normal speech, Sensation intact, Cranial nerves 3-12 NL Psych/Mental Status: Mental status NL, Mood NL General: Alert, Oriented X3, Cooperative, No acute distress Lungs: Wheezing Abdomen: Normal bowel sounds, Soft Extremities: No cyanosis Labs LABS [facility] Clinical Frailty Scale [facility] Clinical Frailty Scale: Managing Well Heart Failure Heart Failure: Yes If Yes, Newly Diagnosed: Yes If Yes, HF Type: Diastolic If Yes, NYHA Class: Class II PROCEDURE NARRATIVE INFORMED CONSENT: After explaining the risks and benefits of the procedure and alternatives, informed consent was obtained. The patient was brought electively to the cardiac catheterization lab. A timeout was performed confirming the patient's name, date of , procedure, and site of procedure. All necessary personnel were wearing the appropriate protective equipment and radiation monitor devices. (See nursing notes for medications administered). ACCESS: The right wrist was sterilely prepped and draped in the usual fashion. The right wrist was infiltrated with 1 mL of 2% lidocaine for subcutaneous anesthesia. A 6 Japanese Terumo glide sheath was inserted into the right radial artery without difficulty. CORONARY ANGIOGRAPHY: Right and left coronary angiography was performed using a 6Fr TIG 4.0 catheter. Left ventricular end diastolic pressure was obtained with a pigtail catheter and pullback was performed. All catheter exchanges and advancements were performed over a guidewire. CLOSURE: At case completion the right radial sheath was removed and a Terumo radial band was applied with 13 ml of air. COMPLICATIONS: The patient tolerated the procedure well and there were no immediate complications. FINDINGS: HEMODYNAMICS: LVEDP 25 mm Hg No gradient on LV to aortic pullback. AO: 160/80 LEFT VENTRICULOGRAM: Deferred due to known normal EF by echo. CORONARY ANGIOGRAPHY: LM is a very short large caliber vessel with normal angiographic appearance. LAD is a large caliber vessel with mild luminal irregularities. Ramus is a moderate caliber vessel with normal angiographic apeparance. LCx is a moderate caliber co-dominant vessel with a mid 50%-70% stenosis. OM1 is a moderate caliber vessel with normal angiographic appearance. LPL1 is a small caliber vessel with normal angiographic appearance. RCA is a large caliber dominant vessel with mild luminal irregularities. RPDA is a moderate caliber vessel with normal angiographic appearance. INTERVENTIONAL TECHNIQUE: iFR of the LCx Heparin was used for anticoagulation. Through a 6Fr EBU 3.5 guide catheter, a 0.014'' iFR pressure wire was advanced to the distal LPL after appropriate normalization in the aorta and NTG administration. The iFR value was 0.95. Further intervention was deferred. Final angiography demonstrated no evidence of guide or wire related complications. Conclusion 1. Acute on chronic diastolic HF with LVEDP of 25 mm Hg. 2. One vessel CAD involving the LCx. 3. Negative iFR of the LCx at 0.95 Recommendations 1. Aggressive medical therapy to include statins, exercise and diet changes with strict BP control. 2. Will initiate low dose diuretics. Signed by : Flakita Pepe, Electronically Approved : 10/25/2019 13:19:54 DICTATED and SIGNED BY: FLAKITA PEPE MD DATE: 10/25/19 1243 Comment Review of Relevant I have reviewed the following items blayne (where applicable) has been applied. Labs Laboratory Tests Test 09/18/20 20:30 White Blood Count 8.8 x10^3/uL (4.0-11.0) Red Blood Count 4.39 x10^6/uL (3.50-5.40) Hemoglobin 12.1 g/dL (12.0-15.5) Hematocrit 36.9 % (36.0-47.0) Mean Corpuscular Volume 84 fL (79-100) Mean Corpuscular Hemoglobin 28 pg (25-35) Mean Corpuscular Hemoglobin Concent 33 g/dL (31-37) Red Cell Distribution Width 14.2 % (11.5-14.5) Platelet Count 373 x10^3/uL (140-400) Neutrophils (%) (Auto) 61 % (31-73) Lymphocytes (%) (Auto) 23 % (24-48) Monocytes (%) (Auto) 7 % (0-9) Eosinophils (%) (Auto) 8 % (0-3) Basophils (%) (Auto) 1 % (0-3) Neutrophils # (Auto) 5.4 x10^3/uL (1.8-7.7) Lymphocytes # (Auto) 2.0 x10^3/uL (1.0-4.8) Monocytes # (Auto) 0.6 x10^3/uL (0.0-1.1) Eosinophils # (Auto) 0.7 x10^3/uL (0.0-0.7) Basophils # (Auto) 0.1 x10^3/uL (0.0-0.2) D-Dimer (Renu) 0.31 ug/mlFEU (0.00-0.50) Sodium Level 142 mmol/L (136-145) Potassium Level 4.0 mmol/L (3.5-5.1) Chloride Level 106 mmol/L (98-107) Carbon Dioxide Level 22 mmol/L (21-32) Anion Gap 14 (6-14) Blood Urea Nitrogen 17 mg/dL (7-20) Creatinine 1.4 mg/dL (0.6-1.0) Estimated GFR (Cockcroft-Gault) 37.7 BUN/Creatinine Ratio 12 (6-20) Glucose Level 123 mg/dL (70-99) Lactic Acid Level 2.5 mmol/L (0.4-2.0) Calcium Level 9.5 mg/dL (8.5-10.1) Magnesium Level 2.0 mg/dL (1.8-2.4) Total Bilirubin 0.5 mg/dL (0.2-1.0) Aspartate Amino Transf (AST/SGOT) 29 U/L (15-37) Alanine Aminotransferase (ALT/SGPT) 33 U/L (14-59) Alkaline Phosphatase 103 U/L (46-116) Troponin I Quantitative < 0.017 ng/mL (0.000-0.055) BC-Gyd-V-Type Natriuretic Peptide 28 pg/mL (0-124) Total Protein 7.2 g/dL (6.4-8.2) Albumin 3.5 g/dL (3.4-5.0) Albumin/Globulin Ratio 0.9 (1.0-1.7) Medications Current Medications Sodium Chloride 500 ml @ 500 mls/hr 1X ONCE IV Last administered on 09/18/20at 20:54; Start 09/18/20 at 20:45; Stop 09/18/20 at 21:44; Status DC Albuterol/ Ipratropium (Duoneb) 3 ml 1X ONCE NEB Last administered on 09/18/20 at 21:11; Start 09/18/20 at 20:45; Stop 09/18/20 at 20:46; Status DC Methylprednisolone Sodium Succinate (SOLU-Medrol 125MG VIAL) 125 mg 1X ONCE IV Last administered on 09/18/20at 22:02; Start 09/18/20 at 21:00; Stop 09/18/20 at 21:01; Status DC Albuterol/ Ipratropium (Duoneb) 3 ml 1X ONCE NEB Last administered on 09/19/20at 00:00; Start 09/19/20 at 00:00; Stop 09/19/20 at 00:01; Status DC Sodium Chloride 500 ml @ 500 mls/hr 1X ONCE IV Last administered on 09/19/20at 00:18; Start 09/19/20 at 00:00; Stop 09/19/20 at 00:59; Status DC Methylprednisolone Sodium Succinate (SOLU-Medrol 125MG VIAL) 125 mg 1X ONCE IV Last administered on 09/19/20at 00:17; Start 09/19/20 at 00:15; Stop 09/19/20 at 00:16; Status DC Fentanyl Citrate (Fentanyl 2ml Vial) 75 mcg 1X ONCE IVP Last administered on 09/19/20at 00:33; Start 09/19/20 at 00:30; Stop 09/19/20 at 00:40; Status DC Ondansetron HCl (Zofran) 4 mg PRN Q8HRS PRN IV NAUSEA/VOMITING; Start 09/19/20 at 02:00; Stop 09/20/20 at 01:59; Status DC Fentanyl Citrate (Fentanyl 2ml Vial) 50 mcg PRN Q1HR PRN IV PAIN Last administered on 09/19/20at 09:44; Start 09/19/20 at 02:00; Stop 09/20/20 at 01:59; Status DC Albuterol/ Ipratropium (Duoneb) 3 ml RTQID NEB Last administered on 09/19/20at 12:40; Start 09/19/20 at 08:00; Stop 09/19/20 at 13:50; Status DC Ketorolac Tromethamine (Toradol 15mg Vial) 15 mg 1X ONCE IVP ; Start 09/19/20 at 02:15; Stop 09/19/20 at 02:16; Status DC Albuterol/ Ipratropium (Duoneb) 3 ml RTQID STAT NEB ; Start 09/19/20 at 05:16; Stop 09/19/20 at 05:22; Status DC Albuterol Sulfate (Ventolin Neb Soln) 2.5 mg PRN QID PRN NEB SHORTNESS OF BREATH; Start 09/19/20 at 05:30 Influenza Virus Vaccine Quadrival (Fluzone Quad Syringe) 0.5 ml ONCE ONCE VAX IM Last administered on 09/19/20at 12:58; Start 09/19/20 at 09:00; Stop 09/19/20 at 09:01; Status DC Methylprednisolone Sodium Succinate (SOLU-Medrol 40MG VIAL) 60 mg Q8HRS IV Last administered on 09/20/20at 06:17; Start 09/19/20 at 14:00 Oxycodone HCl (Roxicodone) 10 mg PRN Q8HRS PRN PO PAIN Last administered on 09/19/20at 12:54; Start 09/19/20 at 11:00; Stop 09/19/20 at 14:08; Status DC Levothyroxine Sodium (Synthroid) 112 mcg DAILY06 PO Last administered on 09/20/20at 06:17; Start 09/19/20 at 14:00 Alprazolam (Xanax) 1 mg PRN TID PRN PO ANXIETY / AGITATION Last administered on 09/19/20at 20:37; Start 09/19/20 at 13:45 Aspirin (Ecotrin) 81 mg DAILY PO Last administered on 09/20/20at 07:07; Start 09/19/20 at 14:00 Atorvastatin Calcium (Lipitor) 40 mg QHS PO Last administered on 09/19/20at 20:37; Start 09/19/20 at 21:00 Baclofen (Lioresal) 10 mg PRN TID PRN PO PAIN; Start 09/19/20 at 13:45 Benzonatate (Tessalon Perle) 100 mg TID PO Last administered on 09/20/20at 07:08; Start 09/19/20 at 14:00 Calcium Polycarbophil (Fibercon) 625 mg PRN DAILY PRN PO CONSTIPATION; Start 09/19/20 at 13:45 Cetirizine HCl (ZyrTEC) 10 mg DAILY PO Last administered on 09/20/20at 07:08; Start 09/19/20 at 14:00 Albuterol/ Ipratropium (Duoneb) 3 ml Q4HRS IH Last administered on 09/20/20at 07:19; Start 09/19/20 at 16:00 Albuterol/ Ipratropium (Duoneb) 3 ml Q4HRS PRN NEB WHEEZING; Start 09/19/20 at 13:45; Stop 09/19/20 at 13:50; Status DC Levothyroxine Sodium (Synthroid) 112 mcg DAILY PO ; Start 09/20/20 at 09:00; Status UNV Lisinopril (Prinivil) 5 mg DAILY PO Last administered on 09/20/20at 07:07; Start 09/19/20 at 14:00 Montelukast Sodium (Singulair) 10 mg QHS PO Last administered on 09/19/20at 2 0:37; Start 09/19/20 at 21:00 Roflumilast (Daliresp) 500 mcg DAILY PO Last administered on 09/20/20at 07:08; Start 09/19/20 at 14:00 Zolpidem Tartrate (Ambien) 5 mg PRN QHS PRN PO INSOMNIA; Start 09/19/20 at 13:45 Budesonide (Pulmicort) 0.5 mg RTBID NEB Last administered on 09/20/20at 07:19; Start 09/19/20 at 20:00 Vitamin D (Vitamin D3) 5,000 unit DAILY PO Last administered on 09/20/20at 07:08; Start 09/19/20 at 14:00 Clobetasol Propionate (Temovate) 1 chanel PRN Q2HRS PRN TP SKIN CLEANSING; Start 09/19/20 at 14:00 Non-Formulary Medication (Cromolyn Sodium ) 20 mg PRN Q4HRS IH ; Start 09/19/20 at 13:45; Status UNV Glyburide (Diabeta) 2.5 mg DAILY PO Last administered on 09/20/20at 07:08; Start 09/19/20 at 14:30 Non-Formulary Medication (Ipratropium/ Albuterol Sulfate (Combivent Respimat Inhal)) 2 inh Q4-6HRS PRN INH WHEEZING; Start 09/19/20 at 13:45; Status UNV Oxycodone HCl (Roxicodone) 10 mg PRN Q6HRS PRN PO PAIN Last administered on 09/20/20at 07:08; Start 09/19/20 at 14:15 Pantoprazole Sodium (Protonix) 40 mg DAILYAC PO Last administered on 09/20/20at 07:07; Start 09/20/20 at 07:30 Psyllium Hydrophilic Mucilloid (Metamucil Fiber Packet) 1 pkt PRN DAILY PRN PO CONSTIPATION; Start 09/19/20 at 14:00 Sodium Chloride (Normal Saline Flush) 3 ml QSHIFT PRN IV AFTER MEDS AND BLOOD DRAWS; Start 09/19/20 at 14:45 Ondansetron HCl (Zofran) 4 mg PRN Q4HRS PRN IV NAUSEA/VOMITING Last admin istered on 09/19/20at 15:18; Start 09/19/20 at 14:45 Acetaminophen (Tylenol) 650 mg PRN Q4HRS PRN PO TEMP OVER 100.4F OR MILD PAIN; Start 09/19/20 at 14:45 Al Hydroxide/Mg Hydroxide (Mylanta Plus Xs) 30 ml PRN DAILY PRN PO HEARTBURN / GAS; Start 09/19/20 at 14:45 Sodium Monofluorophosphate (Fleet Adult) 133 ml PRN DAILY PRN AR CONSTIPATION; Start 09/19/20 at 14:45 Docusate Sodium (Colace) 100 mg PRN BID PRN PO HARD STOOLS; Start 09/19/20 at 14:45 Guaifenesin (Robitussin) 200 mg PRN Q4HRS PRN PO COUGH; Start 09/19/20 at 14:45 Enoxaparin Sodium (Lovenox 40mg Syringe) 40 mg Q24H SQ Last administered on 09/19/20at 15:15; Start 09/19/20 at 15:00 Active Scripts Active Tessalon Perle (Benzonatate) 100 Mg Capsule 1 Cap PO TID Reported Clobetasol Propionate 15 Gm Cream..g. 1 Chanel TP Q2HR PRN Synthroid (Levothyroxine Sodium) 112 Mcg Tablet 1 Tab PO DAILY Oxycodone Hcl Immed.release (Oxycodone Hcl) 10 Mg Tablet 1 Tab PO Q6HRS PRN Duoneb 0.5-3(2.5) Mg/3 Ml (Albuterol/Ipratropium) 3 Ml Ampul.neb 1 Puff NEB Q4HRS PRN Combivent Respimat Inhal (Ipratropium/Albuterol Sulfate) 4 Gm Aer.w.adap 2 Inh INH Q4-6HRS PRN Baclofen 10 Mg Tablet 1 Tab PO TID PRN Glyburide 2.5 Mg Tablet 1 Tab PO DAILY Atorvastatin Calcium 20 Mg Tablet 2 Tab PO HS 30 Days Lisinopril 5 Mg Tablet 1 Tab PO DAILY 30 Days Aspirin Ec (Aspirin) 81 Mg Tablet.dr 1 Tab PO DAILY Daliresp (Roflumilast) 500 Mcg Tablet 1 Tab PO DAILY Ambien (Zolpidem Tartrate) 5 Mg Tablet 1 Tab PO PRN QHS PRN Fiber (Psyllium Husk) 0.52 Gm Capsule 0.52 Gm PO PRN DAILY PRN Vitamin D (Cholecalciferol (Vitamin D3)) 2,000 Unit Capsule 5,000 Unit PO DAILY Alprazolam 1 Mg Tablet 1 Tab PO TID PRN Cetirizine Hcl 10 Mg Tablet 10 Mg PO DAILY Fibercon (Calcium Polycarbophil) 625 Mg Tablet 625 Mg PO PRN DAILY Protonix Packet (Pantoprazole Sodium) 40 Mg Granpkt.dr 40 Mg PO DAILY08 Singulair Tablet (Montelukast Sodium) 10 Mg Tablet 10 Mg PO DAILY Levothyroxine Sodium 100 Mcg Tablet 112 Mcg PO DAILY Benadryl (Diphenhydramine Hcl) 25 Mg Capsule 25-50 Mg PO PRN Q4HRS Cromolyn Sodium 20 Mg/2 Ml Ampul.neb 20 Mg IH PRN Q4HRS Symbicort 160-4.5 Mcg Inhaler (Budesonide/Formoterol Fumarate) 10.2 Gm Hfa.aer.ad 10.2 Gm IH BID Duoneb 0.5 Mg-3 Mg/3 Ml Soln (Ipratropium/Albuterol Sulfate) 3 Ml Ampul.neb 3 Ml IH Q4HRS Vitals/I & O Vital Sign - Last 24 Hours 09/19/20 09/19/20 09/19/20 09/19/20 11:00 12:41 15:00 15:14 Temp 97.1 97.9 97.1 97.9 Pulse 97 98 97 Resp 18 18 B/P (MAP) 121/66 (84) 129/75 (93) 121/66 Pulse Ox 94 99 94 O2 Delivery Room Air Room Air Room Air 09/19/20 09/19/20 09/19/20 09/19/20 16:50 19:00 19:55 20:18 Temp 98.1 98.1 Pulse 96 Resp 25 B/P (MAP) 112/53 (72) Pulse Ox 99 94 O2 Delivery Room Air Room Air Room Air Room Air 09/19/20 09/19/20 09/19/20 09/19/20 20:20 20:37 21:54 23:00 Pulse 87 Resp 24 B/P (MAP) 96/49 (65) Pulse Ox 94 O2 Delivery Room Air Room Air Room Air Room Air 09/20/20 09/20/20 09/20/20 09/20/20 00:51 03:00 04:19 07:00 Temp 97.6 97.6 Pulse 90 71 Resp 18 16 B/P (MAP) 102/66 (78) 104/68 (80) Pulse Ox 94 98 O2 Delivery Room Air Room Air Room Air Room Air 09/20/20 09/20/20 09/20/20 07:07 07:08 07:19 Pulse 90 B/P (MAP) 102/66 Pulse Ox 98 O2 Delivery Room Air Room Air Intake and Output 0 09/19/20 09/19/20 09/20/20 15:00 23:00 07:00 Intake Total 540 ml 340 ml Output Total 0 ml 0 ml Balance 540 ml 340 ml 0 ml Justicifation of Admission Dx: Justifications for Admission: Justification of Admission Dx: N/A ERICA HERNANDEZ MD Sep 20, 2020 08:32
[2020-09-20] MEDS ORDERED: LEVOTHYROXINE 100 MCG TABLET PO SCH (09:00)
[2020-09-20] MEDS: ONDANSETRON PF 4 MG/2 ML VIAL. IV PRN (09:03)
[2020-09-20 09:26] LABS: BASO % 0 % (0-3); EOS % 0 % (0-3); HEMATOCRIT 36.1 % (36.0-47.0); HEMOGLOBIN 11.6 g/dL (12.0-15.5); LYMPH % 8 % (24-48); MEAN CORPUSCULAR HEMOGLOBIN 27 pg (25-35); MEAN CORPUSCULAR HGB CONC 32 g/dL (31-37); MEAN CORPUSCULAR VOLUME 84 fL (79-100); MONO # 0.4 x10^3/uL (0.0-1.1); MONO % 4 % (0-9); NEUT # 10.9 x10^3/uL (1.8-7.7); NEUT % 88 % (31-73); PLATELET COUNT 364 x10^3/uL (140-400); RED CELL DISTRIBUTION WIDTH 14.3 % (11.5-14.5); WHITE BLOOD COUNT 12.3 x10^3/uL (4.0-11.0)
[2020-09-20 09:59] LABS: CALCIUM 9.9 mg/dL (8.5-10.1); CREATININE 0.9 mg/dL (0.6-1.0); GFR 62.8; POTASSIUM 4.4 mmol/L (3.5-5.1)
[2020-09-20 10:36] LABS: % BANDS 4 % (0-9); % LYMPHS 5 % (24-48); % MONOS 2 % (0-10); % SEGS 89 % (35-66); PLT ESTIMATE ADEQUATE (ADEQUATE)
[2020-09-20 11:00] VITALS: BP 112/62
--- NOTE | 2020-09-20 11:26 | NUR ---
SW following. Discussed with RN, pt from home, independent, room air, regular diet. RN advised no SW needs at this time. Pulmonology following. SW will continue to follow.
--- NOTE | 2020-09-20 12:54 | PDOC2 ---
SUN LONG S[employer]ER 09/20/20 1254: CARDIAC CONSULT DATE OF CONSULT Date of Consult DATE: 09/20/20 TIME: 12:47 REASON FOR CONSULT Reason for Consult: dyspnea H/o PCI/stents REFERRING PHYSICIAN Referring Physician: Dr. Bruce SOURCE Source: Chart review, Patient HISTORY OF PRESENT ILLNESS HISTORY OF PRESENT ILLNESS This is a 64 yo female who presented secondary to cough and shortness of breath. Patient has history of asthma and COPD. Is highly allergic to scents. Began having increasing wheezing and shortness of breath. Aurora as is "lungs are on fire". Had brief stabbing pains in her left chest. No associated dizziness, diaphoresis, palpitations, or nausea/vomiting. Patient used inhaler multiple times without any improvement so she came to the ED for further evaluation and treatment. PAST MEDICAL HISTORY Cardiovascular: CAD, HTN Pulmonary: Asthma, COPD, Other (KELLEE) GI: GERD Psych: Anxiety, Depression Musculoskeletal: Osteoarthritis Rheumatologic: Fibromyalgia Endocrine: Hypothyroidism PAST SURGICAL HISTORY Past Surgical History: Tonsillectomy, Hysterectomy FAMILY HISTORY Family History: Hypertension SOCIAL HISTORY Smoke: Quit ALCOHOL: none Drugs: None Lives: Alone CURRENT MEDICATIONS CURRENT MEDICATIONS Current Medications Medications (Trade) Dose Ordered Sig/Smooth Route PRN Reason Start Time Stop Time Status Last Admin Dose Admin Methylprednisolone Sodium Succinate (SOLU-Medrol 40MG VIAL) 60 mg Q8HRS IV 09/19/20 14:00 09/20/20 06:17 Levothyroxine Sodium (Synthroid) 112 mcg DAILY06 PO 09/19/20 14:00 09/20/20 06:17 Alprazolam (Xanax) 1 mg PRN TID PRN PO ANXIETY / AGITATION 09/19/20 13:45 09/19/20 20:37 Aspirin (Ecotrin) 81 mg DAILY PO 09/19/20 14:00 09/20/20 07:07 Atorvastatin Calcium (Lipitor) 40 mg QHS PO 09/19/20 21:00 09/19/20 20:37 Benzonatate (Tessalon Perle) 100 mg TID PO 09/19/20 14:00 09/20/20 07:08 Cetirizine HCl (ZyrTEC) 10 mg DAILY PO 09/19/20 14:00 09/20/20 07:08 Albuterol/ Ipratropium (Duoneb) 3 ml Q4HRS IH 1/13/21 16:00 09/20/20 11:46 Lisinopril (Prinivil) 5 mg DAILY PO 09/19/20 14:00 09/20/20 07:07 Montelukast Sodium (Singulair) 10 mg QHS PO 09/19/20 21:00 09/19/20 20:37 Roflumilast (Daliresp) 500 mcg DAILY PO 09/19/20 14:00 09/20/20 07:08 Budesonide (Pulmicort) 0.5 mg RTBID NEB 09/19/20 20:00 09/20/20 07:19 Vitamin D (Vitamin D3) 5,000 unit DAILY PO 09/19/20 14:00 09/20/20 07:08 Glyburide (Diabeta) 2.5 mg DAILY PO 09/19/20 14:30 09/20/20 07:08 Oxycodone HCl (Roxicodone) 10 mg PRN Q6HRS PRN PO PAIN 09/19/20 14:15 09/20/20 07:08 Pantoprazole Sodium (Protonix) 40 mg DAILYAC PO 09/20/20 07:30 09/20/20 07:07 Ondansetron HCl (Zofran) 4 mg PRN Q4HRS PRN IV NAUSEA/VOMITING 09/19/20 14:45 09/20/20 09:03 Enoxaparin Sodium (Lovenox 40mg Syringe) 40 mg Q24H SQ 09/19/20 15:00 09/19/20 15:15 ALLERGIES ALLERGIES: Coded Allergies: gadopentetate dimeglumine (Verified Allergy, Severe, Anaphylaxis, 07/09/14) levofloxacin (Verified Allergy, Severe, Hives, 11/09/15) acetaminophen (Verified Allergy, Intermediate, Itching, 12/28/17) Patient has received hydrocodone/APAP and can tolerate Crocker brand the best. Other bpm architect products cause her to itch based on the excipients that are used. Even the brand name products cause her to have itching. adhesive (Verified Allergy, Intermediate, Rash, 07/09/14) hydrocodone (Verified Allergy, Intermediate, Itching, 12/28/17) Patient has received hydrocodone/APAP and can tolerate Crocker brand the best. Other bpm architect products cause her to itch based on the excipients that are used. Even the brand name products cause her to have itching. Sulfa (Sulfonamide Antibiotics) (Verified Adverse Reaction, Intermediate, ABDOMINAL PAIN, 07/15/14) diazepam (Verified Adverse Reaction, Intermediate, "MAKES ME CRAZY", 07/15/14) procaine (Verified Adverse Reaction, Intermediate, Nausea and Vomiting, 07/15/14) doxycycline (Verified Adverse Reaction, Mild, Nausea and Vomiting, 02/16/16) Uncoded Allergies: "SCENTS" (Allergy, Severe, 03/13/18) ROS Review of System 14 point ROS conducted with pertinent positives noted above in HPi PHYSICAL EXAM General: Alert, Oriented X3, Cooperative HEENT: Atraumatic Lungs: Other (diminished bases) Heart: Regular rate Abdomen: Soft, No hepatosplenomegaly Extremities: No edema, Normal pulses Skin: No breakdown Neuro: Normal speech, Sensation intact Psych/Mental Status: Mental status NL, Mood NL MUSCULOSKELETAL: Osteoarthritic changes both hands VITALS/I&O VITALS/I&O: Vital Signs Date Time Temp Pulse Resp B/P (MAP) Pulse Ox O2 Delivery O2 Flow Rate FiO2 09/20/20 11:47 Room Air 09/20/20 11:00 98.1 97 18 112/62 (79) 93 98.1 I & O 09/19/20 09/19/20 09/20/20 15:00 23:00 07:00 Intake Total 540 ml 340 ml Output Total 0 ml 0 ml Balance 540 ml 340 ml 0 ml LABS Lab: Laboratory Tests Test 09/20/20 08:25 White Blood Count 12.3 x10^3/uL (4.0-11.0) H Red Blood Count 4.30 x10^6/uL (3.50-5.40) Hemoglobin 11.6 g/dL (12.0-15.5) L Hematocrit 36.1 % (36.0-47.0) Mean Corpuscular Volume 84 fL (79-100) Mean Corpuscular Hemoglobin 27 pg (25-35) Mean Corpuscular Hemoglobin Concent 32 g/dL (31-37) Red Cell Distribution Width 14.3 % (11.5-14.5) Platelet Count 364 x10^3/uL (140-400) Neutrophils (%) (Auto) 88 % (31-73) H Lymphocytes (%) (Auto) 8 % (24-48) L Monocytes (%) (Auto) 4 % (0-9) Eosinophils (%) (Auto) 0 % (0-3) Basophils (%) (Auto) 0 % (0-3) Neutrophils # (Auto) 10.9 x10^3/uL (1.8-7.7) H Lymphocytes # (Auto) 1.0 x10^3/uL (1.0-4.8) Monocytes # (Auto) 0.4 x10^3/uL (0.0-1.1) Eosinophils # (Auto) 0.0 x10^3/uL (0.0-0.7) Basophils # (Auto) 0.0 x10^3/uL (0.0-0.2) Segmented Neutrophils % 89 % (35-66) H Band Neutrophils % 4 % (0-9) Lymphocytes % 5 % (24-48) L Monocytes % 2 % (0-10) Platelet Estimate Adequate (ADEQUATE) Sodium Level 139 mmol/L (136-145) Potassium Level 4.4 mmol/L (3.5-5.1) Chloride Level 104 mmol/L (98-107) Carbon Dioxide Level 25 mmol/L (21-32) Anion Gap 10 (6-14) Blood Urea Nitrogen 23 mg/dL (7-20) H Creatinine 0.9 mg/dL (0.6-1.0) Estimated GFR (Cockcroft-Gault) 62.8 Glucose Level 210 mg/dL (70-99) H Calcium Level 9.9 mg/dL (8.5-10.1) Laboratory Tests 09/20/20 08:25 Laboratory Tests 09/20/20 08:25 ECHOCARDIOGRAM ECHOCARDIOGRAM <Conclusion> The left ventricular systolic function is normal and the ejection fraction is within normal range. The Ejection Fraction is 55-60%. There is normal LV segmental wall motion. DATE: 10/25/19 1143 HEART CATH HEART CATH CORONARY ANGIOGRAPHY: LM is a very short large caliber vessel with normal angiographic appearance. LAD is a large caliber vessel with mild luminal irregularities. Ramus is a moderate caliber vessel with normal angiographic apeparance. LCx is a moderate caliber co-dominant vessel with a mid 50%-70% stenosis. OM1 is a moderate caliber vessel with normal angiographic appearance. LPL1 is a small caliber vessel with normal angiographic appearance. RCA is a large caliber dominant vessel with mild luminal irregularities. RPDA is a moderate caliber vessel with normal angiographic appearance. INTERVENTIONAL TECHNIQUE: iFR of the LCx Heparin was used for anticoagulation. Through a 6Fr EBU 3.5 guide catheter, a 0.014'' iFR pressure wire was advanced to the distal LPL after appropriate no rmalization in the aorta and NTG administration. The iFR value was 0.95. Further intervention was deferred. Final angiography demonstrated no evidence of guide or wire related complications. Conclusion 1. Acute on chronic diastolic HF with LVEDP of 25 mm Hg. 2. One vessel CAD involving the LCx. 3. Negative iFR of the LCx at 0.95 Recommendations 1. Aggressive medical therapy to include statins, exercise and diet changes with strict BP control. 2. Will initiate low dose diuretics. DATE: 10/25/19 1243 ASSESSMENT/PLAN ASSESSMENT/PLAN 1. Dyspnea with AE asthma, COPD 2. Chest pain, atypical. Initial trop negative. Most probable secondary to above 3. CAD, non-obstructive. Cath 08/26 with moderate one-vessel disease of the LCx with negative iFR. . 4. Chronic diastolic CHF: well compensated 5. Diabetes, II 6. Hypothyroidism: on replacement Recommendations Trend troponin Continue secondary prevention ASA, statin therapy No BB with AE asthma Outpatient echo If pain recurrent, consider further ischemic evaluation on an outpatient basis Supportive care FLAKITA PEPE MD 09/20/20 1606: CARDIAC CONSULT ASSESSMENT/PLAN ASSESSMENT/PLAN Patient seen and examined. Agree with above nurse practitioner note. 64-year-old woman with past medical history as noted above. Chest pain appears to be mostly musculoskeletal and noncardiac in nature. At home she has not had any significant anginal symptoms and a recent cardiac catheterization is as noted above. EKG and cardiac enzymes are unremarkable Supportive care. Thank you for this consultation. SUN LONG APRN Sep 20, 2020 12:54 FLAKITA PEPE MD Sep 20, 2020 16:06
[2020-09-20] MEDS: ENOXAPARIN 40 MG/0.4 ML SYRINGE. SQ SCH (14:50)
[2020-09-20 15:00] VITALS: BP 119/48
[2020-09-20 16:20] LABS: CHOLESTEROL/HDL RATIO 2.3
[2020-09-20] MEDS: diphenhydrAMINE HCL 25 MG CAPSULE PO PRN (16:22)
[2020-09-20] MEDS ORDERED: ALBUTEROL SULFATE 2.5 MG/3 ML NEBU. NEB PRN (17:00)
[2020-09-20] MEDS: MONTELUKAST SODIUM 10 MG TABLET. PO SCH (21:08)
[2020-09-20] MEDS: ATORVASTATIN CALCIUM 40 MG TABLET. PO SCH (21:08)
[2020-09-20] MEDS: CROMOLYN 4% NASAL SPRAY 26ML BOTTLE. NS SCH (21:18)
[2020-09-20 23:00] VITALS: BP 124/66
[2020-09-21 03:00] VITALS: BP 120/66
[2020-09-21] MEDS: IPRATRPIUM/ALBUTEROL 0.5/2.5MG 3 ML NEBU. IH SCH ×6 (04:01→23:55)
[2020-09-21] MEDS: methylPREDNISolone SOD SUCC PF 40 MG/ML VIAL. IV SCH ×3 (04:16→21:08)
[2020-09-21] MEDS: LEVOTHYROXINE 112 MCG TABLET PO SCH (04:17)
[2020-09-21] MEDS: oxyCODONE IR 5 MG TABLET PO PRN ×4 (04:17→22:52)
[2020-09-21 07:00] VITALS: BP 156/83
[2020-09-21] MEDS: BUDESONIDE 0.5 MG/2 ML NEBU. NEB SCH ×2 (08:07→18:22)
[2020-09-21] MEDS: CROMOLYN 4% NASAL SPRAY 26ML BOTTLE. NS SCH ×3 (08:12→21:08)
[2020-09-21] MEDS: BENZONATATE 100 MG CAPSULE. PO SCH ×3 (08:12→21:05)
[2020-09-21] MEDS: CETIRIZINE HCL 10 MG TABLET. PO SCH (08:12)
[2020-09-21] MEDS: PANTOPRAZOLE 40 MG TABLET.DR. PO SCH (08:12)
[2020-09-21] MEDS: diphenhydrAMINE HCL 25 MG CAPSULE PO PRN ×3 (08:12→21:18)
[2020-09-21] MEDS: ASPIRIN ENTERIC COATED 81 MG TABLET.DR. PO SCH (08:13)
[2020-09-21] MEDS: LISINOPRIL 5 MG TABLET. PO SCH (08:13)
[2020-09-21] MEDS: CHOLECALCIFEROL (VITAMIN D3) 5,000 UNIT CAPSULE PO SCH (08:13)
[2020-09-21] MEDS: glyBURIDE 5 MG TABLET PO SCH (08:13)
[2020-09-21] MEDS: ROFLUMILAST 500 MCG TABLET. PO SCH (08:13)
--- NOTE | 2020-09-21 08:42 | PDOC ---
PROGRESS NOTES Date of Service: DATE: 09/21/20 TIME: 08:42 Chief Complaint Chief Complaint Assessment/Plan Assessment/Plan Impression: Asthma exacerbation, ACUTE MORBID OBESITY Acute respiratory failure chronic pain syndrome diabetes hypothyroid on oral replacement COPD EXAC allergy to perfumes and scents One vessel CAD involving the LCx. post stent ADMITTED o2 support PRN pulm consult albuterol q 4 hrs prn dvt prophylaxis IV SOLUMEDROL TAPER GI PROPHYLAXIS ekg cardiology consult due to cad hx / dyspnea 08/21 REMAINS TO HAVE MODERATE EXP WHEEZES BILATERALLY , POOR air exchange , tight D/W RN Justifications for Admission status asthmaticus, copd exac History of Present Illness History of Present Illness Identification/Chief Complaint Chief Complaint SEEN IN ER WITH STATUS ASTHMATICUS 64 year old female coming in for 2 days of shortness of breath the cough productive of small amounts of white phlegm. WAS using her inhaler and DuoNeb treatments at home without improvement. she has had a total of 10 DuoNeb treatments - . Denies any known triggers. Denies any fevers, nausea, vomiting, diarrhea. has 30 pk yrs, but stopped smoking Past Medical History Pulmonary: Asthma, COPD GI: GERD Psych: Depression Rheumatologic: Fibromyalgia Endocrine: Hypothyroidism Past Surgical History Past Surgical History: Tonsillectomy, Hysterectomy Family History Family History: Hypertension Social History Smoke: Quit ALCOHOL: none Drugs: None Current Medications Vitals Vitals Vital Signs Date Time Temp Pulse Resp B/P (MAP) Pulse Ox O2 Delivery O2 Flow Rate FiO2 09/21/20 08:13 84 156/83 09/21/20 08:12 96 Room Air 09/21/20 03:00 98.0 18 98.0 Physical Exam Physical Exam Physical Exam Neck: No rigidity, supple, no stridor. [] Cardiovascular: Regular rate and rhythm, brisk cap refill [] Lungs & Thorax: Bilateral expiratory wheezes, no tachypnea. [] Abdomen: Soft, nondistended. Skin: Warm, dry, no erythema, no rash. [] Back: No tenderness, no CVA tenderness. [] Extremities: No deformities, range of motion grossly intact, no lower extremity edema [] Neurologic: Alert and oriented X 3, no focal deficits noted. [] Psychologic: Affect normal, judgement normal, mood normal. [] General: Alert, Oriented X3, Cooperative, No acute distress HEENT: Mucous membr. moist/pink Heart: no thrills Breasts: Not examined Abdomen: Normal bowel sounds, Soft Rectal Exam: not examined PELVIC: Examination not indicated Extremities: No cyanosis Neuro: Normal speech, Sensation intact, Cranial nerves 3-12 NL Psych/Mental Status: Mental status NL, Mood NL General: Alert, Oriented X3, Cooperative, No acute distress Heart: Regular rate, Normal S1 Lungs: Wheezing, Other (TIGHT EXP WHEEZES) Abdomen: Soft, No hepatosplenomegaly Extremities: No edema, Normal pulses Skin: No breakdown Comment Review of Relevant I have reviewed the following items blayne (where applicable) has been applied. Labs Laboratory Tests Test 09/20/20 08:25 White Blood Count 12.3 x10^3/uL (4.0-11.0) Red Blood Count 4.30 x10^6/uL (3.50-5.40) Hemoglobin 11.6 g/dL (12.0-15.5) Hematocrit 36.1 % (36.0-47.0) Mean Corpuscular Volume 84 fL (79-100) Mean Corpuscular Hemoglobin 27 pg (25-35) Mean Corpuscular Hemoglobin Concent 32 g/dL (31-37) Red Cell Distribution Width 14.3 % (11.5-14.5) Platelet Count 364 x10^3/uL (140-400) Neutrophils (%) (Auto) 88 % (31-73) Lymphocytes (%) (Auto) 8 % (24-48) Monocytes (%) (Auto) 4 % (0-9) Eosinophils (%) (Auto) 0 % (0-3) Basophils (%) (Auto) 0 % (0-3) Neutrophils # (Auto) 10.9 x10^3/uL (1.8-7.7) Lymphocytes # (Auto) 1.0 x10^3/uL (1.0-4.8) Monocytes # (Auto) 0.4 x10^3/uL (0.0-1.1) Eosinophils # (Auto) 0.0 x10^3/uL (0.0-0.7) Basophils # (Auto) 0.0 x10^3/uL (0.0-0.2) Segmented Neutrophils % 89 % (35-66) Band Neutrophils % 4 % (0-9) Lymphocytes % 5 % (24-48) Monocytes % 2 % (0-10) Platelet Estimate Adequate (ADEQUATE) Sodium Level 139 mmol/L (136-145) Potassium Level 4.4 mmol/L (3.5-5.1) Chloride Level 104 mmol/L (98-107) Carbon Dioxide Level 25 mmol/L (21-32) Anion Gap 10 (6-14) Blood Urea Nitrogen 23 mg/dL (7-20) Creatinine 0.9 mg/dL (0.6-1.0) Estimated GFR (Cockcroft-Gault) 62.8 Glucose Level 210 mg/dL (70-99) Calcium Level 9.9 mg/dL (8.5-10.1) Troponin I Quantitative < 0.017 ng/mL (0.000-0.055) Triglycerides Level 104 mg/dL (0-150) Cholesterol Level 195 mg/dL (0-200) LDL Cholesterol, Calculated 89 mg/dL (0-100) VLDL Cholesterol, Calculated 21 mg/dL (0-40) Non-HDL Cholesterol Calculated 110 mg/dL (0-129) HDL Cholesterol 85 mg/dL (40-60) Cholesterol/HDL Ratio 2.3 Medications Current Medications Sodium Chloride 500 ml @ 500 mls/hr 1X ONCE IV Last administered on 09/18/20at 20:54; Start 09/18/20 at 20:45; Stop 09/18/20 at 21:44; Status DC Albuterol/ Ipratropium (Duoneb) 3 ml 1X ONCE NEB Last administered on 09/18/20at 21:11; Start 09/18/20 at 20:45; Stop 09/18/20 at 20:46; Status DC Methylprednisolone Sodium Succinate (SOLU-Medrol 125MG VIAL) 125 mg 1X ONCE IV Last administered on 09/18/20at 22:02; Start 09/18/20 at 21:00; Stop 09/18/20 at 21:01; Status DC Albuterol/ Ipratropium (Duoneb) 3 ml 1X ONCE NEB Last administered on 09/19/20at 00:00; Start 09/19/20 at 00:00; Stop 09/19/20 at 00:01; Status DC Sodium Chloride 500 ml @ 500 mls/hr 1X ONCE IV Last administered on 09/19/20at 00:18; Start 09/19/20 at 00:00; Stop 09/19/20 at 00:59; Status DC Methylprednisolone Sodium Succinate (SOLU-Medrol 125MG VIAL) 125 mg 1X ONCE IV Last administered on 09/19/20at 00:17; Start 09/19/20 at 00:15; Stop 09/19/20 at 00:16; Status DC Fentanyl Citrate (Fentanyl 2ml Vial) 75 mcg 1X ONCE IVP Last administered on 09/19/20at 00:33; Start 09/19/20 at 00:30; Stop 09/19/20 at 00:40; Status DC Ondansetron HCl (Zofran) 4 mg PRN Q8HRS PRN IV NAUSEA/VOMITING; Start 09/19/20 at 02:00; Stop 09/20/20 at 01:59; Status DC Fentanyl Citrate (Fentanyl 2ml Vial) 50 mcg PRN Q1HR PRN IV PAIN Last administered on 09/19/20at 09:44; Start 09/19/20 at 02:00; Stop 09/20/20 at 01:59; Status DC Albuterol/ Ipratropium (Duoneb) 3 ml RTQID NEB Last administered on 09/19/20at 12:40; Start 09/19/20 at 08:00; Stop 09/19/20 at 13:50; Status DC Ketorolac Tromethamine (Toradol 15mg Vial) 15 mg 1X ONCE IVP ; Start 09/19/20 at 02:15; Stop 09/19/20 at 02:16; Status DC Albuterol/ Ipratropium (Duoneb) 3 ml RTQID STAT NEB ; Start 09/19/20 at 05:16; Stop 09/19/20 at 05:22; Status DC Albuterol Sulfate (Ventolin Neb Soln) 2.5 mg PRN QID PRN NEB SHORTNESS OF BREATH; Start 09/19/20 at 05:30; Stop 09/20/20 at 16:51; Status DC Influenza Virus Vaccine Quadrival (Fluzone Quad Syringe) 0.5 ml ONCE ONCE VAX IM Last administered on 09/19/20at 12:58; Start 09/19/20 at 09:00; Stop 09/19/20 at 09:01; Status DC Methylprednisolone Sodium Succinate (SOLU-Medrol 40MG VIAL) 60 mg Q8HRS IV Last administered on 09/21/20at 04:16; Start 09/19/20 at 14:00 Oxycodone HCl (Roxicodone) 10 mg PRN Q8HRS PRN PO PAIN Last administered on 09/19/20at 12:54; Start 09/19/20 at 11:00; Stop 09/19/20 at 14:08; Status DC Levothyroxine Sodium (Synthroid) 112 mcg DAILY06 PO Last administered on at 04:17; Start 09/19/20 at 14:00 Alprazolam (Xanax) 1 mg PRN TID PRN PO ANXIETY / AGITATION Last administered on 09/19/20at 20:37; Start 09/19/20 at 13:45 Aspirin (Ecotrin) 81 mg DAILY PO Last administered on 09/21/20at 08:13; Start 09/19/20 at 14:00 Atorvastatin Calcium (Lipitor) 40 mg QHS PO Last administered on 09/20/20at 21:08; Start 09/19/20 at 21:00 Baclofen (Lioresal) 10 mg PRN TID PRN PO PAIN; Start 09/19/20 at 13:45 Benzonatate (Tessalon Perle) 100 mg TID PO Last administered on 09/21/20at 08:1 2; Start 09/19/20 at 14:00 Calcium Polycarbophil (Fibercon) 625 mg PRN DAILY PRN PO CONSTIPATION, 1st CHOICE; Start 09/19/20 at 13:45 Cetirizine HCl (ZyrTEC) 10 mg DAILY PO Last administered on 09/21/20at 08:12; Start 09/19/20 at 14:00 Albuterol/ Ipratropium (Duoneb) 3 ml Q4HRS IH Last administered on 09/21/20at 08:07; Start 09/19/20 at 16:00 Albuterol/ Ipratropium (Duoneb) 3 ml Q4HRS PRN NEB WHEEZING; Start 09/19/20 at 13:45; Stop 09/19/20 at 13:50; Status DC Levothyroxine Sodium (Synthroid) 112 mcg DAILY PO ; Start 09/20/20 at 09:00; Status UNV Lisinopril (Prinivil) 5 mg DAILY PO Last administered on 09/21/20 08:13; Start 09/19/20 at 14:00 Montelukast Sodium (Singulair) 10 mg QHS PO Last administered on 09/20/20at 21:08; Start 09/19/20 at 21:00 Roflumilast (Daliresp) 500 mcg DAILY PO Last administered on 09/21/20at 08:13; Start 09/19/20 at 14:00 Zolpidem Tartrate (Ambien) 5 mg PRN QHS PRN PO INSOMNIA; Start 09/19/20 at 13:45 Budesonide (Pulmicort) 0.5 mg RTBID NEB Last administered on 09/21/20 08:07; Start 09/19/20 at 20:00 Vitamin D (Vitamin D3) 5,000 unit DAILY PO Last administered on 09/21/20 08:13; Start 09/19/20 at 14:00 Clobetasol Propionate (Temovate) 1 chanel PRN Q2HRS PRN TP SKIN CLEANSING Last administered on 09/20/20at 16:22; Start 09/19/20 at 14:00 Non-Formulary Medication (Cromolyn Sodium ) 20 mg PRN Q4HRS IH ; Start 09/19/20 at 13:45; Status UNV Glyburide (Diabeta) 2.5 mg DAILY PO Last administered on 09/21/20at 08:13; Start 09/19/20 at 14:30 Non-Formulary Medication (Ipratropium/ Albuterol Sulfate (Combivent Respimat Inhal)) 2 inh Q4-6HRS PRN INH WHEEZING; Start 09/19/20 at 13:45; Status UNV Oxycodone HCl (Roxicodone) 10 mg PRN Q6HRS PRN PO MODERATE TO SEVERE PAIN Last administered on 09/21/20 04:17; Start 09/19/20 at 14:15 Pantoprazole Sodium (Protonix) 40 mg DAILYAC PO Last administered on 09/21/20at 08:12; Start 09/20/20 at 07:30 Psyllium Hydrophilic Mucilloid (Metamucil Fiber Packet) 1 pkt PRN DAILY PRN PO CONSTIPATION, 2nd CHOICE; Start 09/19/20 at 14:00 Sodium Chloride (Normal Saline Flush) 3 ml QSHIFT PRN IV AFTER MEDS AND BLOOD DRAWS; Start 09/19/20 at 14:45 Ondansetron HCl (Zofran) 4 mg PRN Q4HRS PRN IV NAUSEA/VOMITING Last administered on 09/20/20at 09:03; Start 09/19/20 at 14:45 Acetaminophen (Tylenol) 650 mg PRN Q4HRS PRN PO TEMP OVER 100.4F OR MILD PAIN; Start 09/19/20 at 14:45 Al Hydroxide/Mg Hydroxide (Mylanta Plus Xs) 30 ml PRN DAILY PRN PO HEARTBURN / GAS; Start 09/19/20 at 14:45 Sodium Monofluorophosphate (Fleet Adult) 133 ml PRN DAILY PRN PA CONSTIPATION; Start 09/19/20 at 14:45 Docusate Sodium (Colace) 100 mg PRN BID PRN PO HARD STOOLS; Start 09/19/20 at 14:45 Guaifenesin (Robitussin) 200 mg PRN Q4HRS PRN PO COUGH; Start 09/19/20 at 14:45 Enoxaparin Sodium (Lovenox 40mg Syringe) 40 mg Q24H SQ Last administered on 09/20/20at 14:50; Start 09/19/20 at 15:00 Diphenhydramine HCl (Benadryl) 25 mg PRN Q6HRS PRN PO ITCHING Last administered on 09/21/20at 08:12; Start 09/20/20 at 15:45 Cromolyn Sodium (Nasalcrom) 1 spray TID NS Last administered on 09/21/20at 08:12; Start 09/20/20 at 21:00 Albuterol Sulfate (Ventolin Neb Soln) 2.5 mg PRN Q4HRS PRN NEB SHORTNESS OF BREATH; Start 09/20/20 at 17:00 Active Scripts Active Tessalon Perle (Benzonatate) 100 Mg Capsule 1 Cap PO TID Reported Clobetasol Propionate 15 Gm Cream..g. 1 Chanel TP Q2HR PRN Synthroid (Levothyroxine Sodium) 112 Mcg Tablet 1 Tab PO DAILY Oxycodone Hcl Immed.release (Oxycodone Hcl) 10 Mg Tablet 1 Tab PO Q6HRS PRN Duoneb 0.5-3(2.5) Mg/3 Ml (Albuterol/Ipratropium) 3 Ml Ampul.neb 1 Puff NEB Q4HRS PRN Combivent Respimat Inhal (Ipratropium/Albuterol Sulfate) 4 Gm Aer.w.adap 2 Inh INH Q4-6HRS PRN Baclofen 10 Mg Tablet 1 Tab PO TID PRN Glyburide 2.5 Mg Tablet 1 Tab PO DAILY Atorvastatin Calcium 20 Mg Tablet 2 Tab PO HS 30 Days Lisinopril 5 Mg Tablet 1 Tab PO DAILY 30 Days Aspirin Ec (Aspirin) 81 Mg Tablet. 1 Tab PO DAILY Daliresp (Roflumilast) 500 Mcg Tablet 1 Tab PO DAILY Ambien (Zolpidem Tartrate) 5 Mg Tablet 1 Tab PO PRN QHS PRN Fiber (Psyllium Husk) 0.52 Gm Capsule 0.52 Gm PO PRN DAILY PRN Vitamin D (Cholecalciferol (Vitamin D3)) 2,000 Unit Capsule 5,000 Unit PO DAILY Alprazolam 1 Mg Tablet 1 Tab PO TID PRN Cetirizine Hcl 10 Mg Tablet 10 Mg PO DAILY Fibercon (Calcium Polycarbophil) 625 Mg Tablet 625 Mg PO PRN DAILY Protonix Packet (Pantoprazole Sodium) 40 Mg Granpkt. 40 Mg PO DAILY08 Singulair Tablet (Montelukast Sodium) 10 Mg Tablet 10 Mg PO DAILY Levothyroxine Sodium 100 Mcg Tablet 112 Mcg PO DAILY Benadryl (Diphenhydramine Hcl) 25 Mg Capsule 25-50 Mg PO PRN Q4HRS Cromolyn Sodium 20 Mg/2 Ml Ampul.neb 20 Mg IH PRN Q4HRS Symbicort 160-4.5 Mcg Inhaler (Budesonide/Formoterol Fumarate) 10.2 Gm Hfa.aer.ad 10.2 Gm IH BID Duoneb 0.5 Mg-3 Mg/3 Ml Soln (Ipratropium/Albuterol Sulfate) 3 Ml Ampul.neb 3 Ml IH Q4HRS Vitals/I & O Vital Sign - Last 24 Hours 09/20/20 09/20/20 09/20/20 09/20/20 09:16 11:00 11:47 14:57 Temp 98.1 98.1 Pulse 97 Resp 18 B/P (MAP) 112/62 (79) Pulse Ox 93 O2 Delivery Room Air Room Air Room Air Room Air 09/20/20 09/20/20 09/20/20 09/20/20 15:00 16:24 16:25 19:25 Temp 97.9 97.9 Pulse 84 Resp 18 B/P (MAP) 119/48 (71) Pulse Ox 95 95 O2 Delivery Room Air Room Air Room Air Room Air 09/20/20 09/20/20 09/20/20 09/20/20 19:25 20:00 21:08 22:15 Pulse Ox 95 95 95 O2 Delivery Room Air Room Air Room Air Room Air 09/20/20 09/20/20 09/21/20 09/21/20 23:00 23:50 03:00 04:01 Temp 98.0 98.0 98.0 98.0 Pulse 91 85 Resp 18 18 B/P (MAP) 124/66 (85) 120/66 (84) Pulse Ox 96 91 O2 Delivery Room Air Room Air Room Air Room Air 09/21/20 09/21/20 09/21/20 09/21/20 04:17 05:30 08:10 08:12 Pulse Ox 91 91 96 96 O2 Delivery Room Air Room Air Room Air Room Air 09/21/20 08:13 Pulse 84 B/P (MAP) 156/83 Justicifation of Admission Dx: Justifications for Admission: Justification of Admission Dx: N/A ERICA HERNANDEZ MD Sep 21, 2020 08:42
--- NOTE | 2020-09-21 08:46 | PDOC ---
PULMONARY PROGRESS NOTES DATE: 09/21/20 TIME: 08:46 Subjective Patient remains on room air Feeling better today, states she is not ready to go home yet Vitals Vital Signs Date Time Temp Pulse Resp B/P (MAP) Pulse Ox O2 Delivery O2 Flow Rate FiO2 09/21/20 08:13 84 156/83 09/21/20 08:12 96 Room Air 09/21/20 03:00 98.0 18 98.0 ROS: No Nausea, No Chest Pain, No Abdominal Pain General: Alert Lungs: Wheezing (Expiratory) Cardiovascular: S1, S2 Abdomen: Soft Neuro Exam: Alert Extremities: No Edema Skin: Warm, Dry Labs Laboratory Tests Test 09/20/20 08:25 White Blood Count 12.3 x10^3/uL (4.0-11.0) Red Blood Count 4.30 x10^6/uL (3.50-5.40) Hemoglobin 11.6 g/dL (12.0-15.5) Hematocrit 36.1 % (36.0-47.0) Mean Corpuscular Volume 84 fL (79-100) Mean Corpuscular Hemoglobin 27 pg (25-35) Mean Corpuscular Hemoglobin Concent 32 g/dL (31-37) Red Cell Distribution Width 14.3 % (11.5-14.5) Platelet Count 364 x10^3/uL (140-400) Neutrophils (%) (Auto) 88 % (31-73) Lymphocytes (%) (Auto) 8 % (24-48) Monocytes (%) (Auto) 4 % (0-9) Eosinophils (%) (Auto) 0 % (0-3) Basophils (%) (Auto) 0 % (0-3) Neutrophils # (Auto) 10.9 x10^3/uL (1.8-7.7) Lymphocytes # (Auto) 1.0 x10^3/uL (1.0-4.8) Monocytes # (Auto) 0.4 x10^3/uL (0.0-1.1) Eosinophils # (Auto) 0.0 x10^3/uL (0.0-0.7) Basophils # (Auto) 0.0 x10^3/uL (0.0-0.2) Segmented Neutrophils % 89 % (35-66) Band Neutrophils % 4 % (0-9) Lymphocytes % 5 % (24-48) Monocytes % 2 % (0-10) Platelet Estimate Adequate (ADEQUATE) Sodium Level 139 mmol/L (136-145) Potassium Level 4.4 mmol/L (3.5-5.1) Chloride Level 104 mmol/L (98-107) Carbon Dioxide Level 25 mmol/L (21-32) Anion Gap 10 (6-14) Blood Urea Nitrogen 23 mg/dL (7-20) Creatinine 0.9 mg/dL (0.6-1.0) Estimated GFR (Cockcroft-Gault) 62.8 Glucose Level 210 mg/dL (70-99) Calcium Level 9.9 mg/dL (8.5-10.1) Troponin I Quantitative < 0.017 ng/mL (0.000-0.055) Triglycerides Level 104 mg/dL (0-150) Cholesterol Level 195 mg/dL (0-200) LDL Cholesterol, Calculated 89 mg/dL (0-100) VLDL Cholesterol, Calculated 21 mg/dL (0-40) Non-HDL Cholesterol Calculated 110 mg/dL (0-129) HDL Cholesterol 85 mg/dL (40-60) Cholesterol/HDL Ratio 2.3 Medications Active Scripts Medications Dose Route/Sig Max Daily Dose Days Date Category Clobetasol Propionate 15 Gm Cream..g. 1 Chanel TP Q2HR PRN 09/19/20 Reported Synthroid (Levothyroxine Sodium) 112 Mcg Tablet 1 Tab PO DAILY 09/19/20 Reported Oxycodone Hcl Immed.release (Oxycodone Hcl) 10 Mg Tablet 1 Tab PO Q6HRS PRN 09/19/20 Reported Duoneb 0.5-3(2.5) Mg/3 Ml (Albuterol/Ipratropium) 3 Ml Ampul.neb 1 Puff NEB Q4HRS PRN 09/19/20 Reported Combivent Respimat Inhal (Ipratropium/Albuterol Sulfate) 4 Gm Aer.w.adap 2 Inh INH Q4-6HRS PRN 09/19/20 Reported Baclofen 10 Mg Tablet 1 Tab PO TID PRN 09/19/20 Reported Glyburide 2.5 Mg Tablet 1 Tab PO DAILY 09/19/20 Reported Atorvastatin Calcium 20 Mg Tablet 2 Tab PO HS 30 10/26/19 Reported Lisinopril 5 Mg Tablet 1 Tab PO DAILY 30 10/26/19 Reported Aspirin Ec (Aspirin) 81 Mg Tablet.dr 1 Tab PO DAILY 10/26/19 Reported Tessalon Perle (Benzonatate) 100 Mg Capsule 1 Cap PO TID 08/08/18 Rx Daliresp (Roflumilast) 500 Mcg Tablet 1 Tab PO DAILY 02/12/16 Reported Ambien (Zolpidem Tartrate) 5 Mg Tablet 1 Tab PO PRN QHS PRN 09/17/14 Reported Fiber (Psyllium Husk) 0.52 Gm Capsule 0.52 Gm PO PRN DAILY PRN 07/10/14 Reported Vitamin D (Cholecalciferol (Vitamin D3)) 2,000 Unit Capsule 5,000 Unit PO DAILY 06/10/14 Reported Alprazolam 1 Mg Tablet 1 Tab PO TID PRN 06/10/14 Reported Cetirizine Hcl 10 Mg Tablet 10 Mg PO DAILY 03/23/14 Reported Fibercon (Calcium Polycarbophil) 625 Mg Tablet 625 Mg PO PRN DAILY 08/06/13 Reported Protonix Packet (Pantoprazole Sodium) 40 Mg Granpkt.dr 40 Mg PO DAILY08 08/06/13 Reported Singulair Tablet (Montelukast Sodium) 10 Mg Tablet 10 Mg PO DAILY 08/06/13 Reported Levothyroxine Sodium 100 Mcg Tablet 112 Mcg PO DAILY 08/06/13 Reported Benadryl (Diphenhydramine Hcl) 25 Mg Capsule 25-50 Mg PO PRN Q4HRS 08/06/13 Reported Cromolyn Sodium 20 Mg/2 Ml Ampul.neb 20 Mg IH PRN Q4HRS 08/06/13 Reported Symbicort 160-4.5 Mcg Inhaler (Budesonide/Formoterol Fumarate) 10.2 Gm Hfa.aer.ad 10.2 Gm IH BID 08/06/13 Reported Duoneb 0.5 Mg-3 Mg/3 Ml Soln (Ipratropium/Albuterol Sulfate) 3 Ml Ampul.neb 3 Ml IH Q4HRS 08/06/13 Reported Comments CXR IMPRESSION: 1. No radiographic evidence for acute cardiopulmonary process. Impression . IMPRESSION: 1. Dyspnea secondary to acute exacerbation of chronic obstructive pulmonary disease with an asthmatic component. 2. The patient with chronic obstructive pulmonary disease, overlapped with strong asthmatic component. Now has a trigger of symptoms related to scent exposure. 3. No clinical signs of bronchitis or pneumonia. Plan . RECOMMENDATIONS: Patient remains on room air Continue steroids, with taper, plan to transition to p.o. tomorrow Continue duo-nebs 4 times daily and as needed Avoid any exposure to scent/perfume Patient can discharge once bronchospasms improve Physical therapy/Occupational Therapy DVT/GI prophylaxis Discussed with KAREN PERERA MD Sep 21, 2020 08:46
--- NOTE | 2020-09-21 09:53 | NUR ---
SW following. Discussed with RN, pt from home, independent, room air, regular diet. If Dr. Valente is okay with discharge, RN anticipates discharge home today with self care. RN advised no SW needs. SW will continue to follow.
[2020-09-21 11:00] VITALS: BP 136/75
--- NOTE | 2020-09-21 13:29 | PDOC ---
CARDIO Progress Notes Date and Time Date of Service 09/21/2020 Time of Evaluation 1210 Subjective Subjective: No Chest Pain, No Palpitations, Other (still has SOA with exertion and wheezy) Vitals Vitals Vital Signs Date Time Temp Pulse Resp B/P (MAP) Pulse Ox O2 Delivery O2 Flow Rate FiO2 09/21/20 11:51 Room Air 09/21/20 11:00 97.5 83 18 136/75 (95) 93 97.5 Weight Weight [ ] Input and Output Intake and Output Intake and Output 09/21/20 07:00 # Voids 2 Physical Exam HEENT: Neck Supple W Full Motion Chest: Symmetric LUNGS: Other (diffuse wheeze) Heart: RRR (no tele) Abdomen: Soft N/T, Other (obese) Extremities: No Edema, No Calf Tenderness Neurology: alert, oriented, follow commands Assessment Assessment 1. Dyspnea with AE asthma, COPD 2. Atypical chest pain: pleuritic 3. CAD, non-obstructive. Cath 08/26 with moderate one-vessel disease of the LCx with negative iFR. clinically stable 4. Chronic diastolic CHF: well compensated 5. Diabetes, II 6. Hypothyroidism: on replacement Recommendations Continue secondary prevention ASA, statin therapy No BB with AE asthma If pain recurrent, consider further ischemic evaluation on an outpatient basis Follow up with Dr. Kay January 23 9:15 AM. Will obtain echo prior to visit Dietitian consult Justicifation of Admission Dx: Justifications for Admission: Justification of Admission Dx: N/A JUDI CEBALLOS APRN Sep 21, 2020 13:29
[2020-09-21] MEDS: ENOXAPARIN 40 MG/0.4 ML SYRINGE. SQ SCH (14:20)
[2020-09-21 15:00] VITALS: BP 128/72
[2020-09-21 20:10] VITALS: BP 115/68
[2020-09-21] MEDS: MONTELUKAST SODIUM 10 MG TABLET. PO SCH (21:05)
[2020-09-21] MEDS: ATORVASTATIN CALCIUM 40 MG TABLET. PO SCH (21:05)
[2020-09-21 23:30] VITALS: BP 135/70
[2020-09-22 03:00] VITALS: BP 125/67
[2020-09-22] MEDS: IPRATRPIUM/ALBUTEROL 0.5/2.5MG 3 ML NEBU. IH SCH ×3 (03:30→11:53)
[2020-09-22] MEDS: oxyCODONE IR 5 MG TABLET PO PRN ×2 (04:49→13:16)
[2020-09-22] MEDS: LEVOTHYROXINE 112 MCG TABLET PO SCH (04:49)
[2020-09-22] MEDS: diphenhydrAMINE HCL 25 MG CAPSULE PO PRN (04:49)
[2020-09-22] MEDS: methylPREDNISolone SOD SUCC PF 40 MG/ML VIAL. IV SCH (04:50)
--- NOTE | 2020-09-22 07:48 | PDOC ---
PULMONARY PROGRESS NOTES DATE: 09/22/20 TIME: 07:35 Subjective Patient remains on room air Feeling better today, has cough, no pain Vitals Vital Signs Date Time Temp Pulse Resp B/P (MAP) Pulse Ox O2 Delivery O2 Flow Rate FiO2 09/22/20 05:49 20 Room Air 09/22/20 05:15 95 09/22/20 03:00 97.8 75 125/67 (86) 97.8 ROS: No Nausea, No Chest Pain, No Abdominal Pain General: Alert Lungs: Clear, Other (good air movement ) Cardiovascular: S1, S2 Abdomen: Soft Neuro Exam: Alert Extremities: No Edema Skin: Warm, Dry Labs Laboratory Tests Test 09/20/20 08:25 White Blood Count 12.3 x10^3/uL (4.0-11.0) Red Blood Count 4.30 x10^6/uL (3.50-5.40) Hemoglobin 11.6 g/dL (12.0-15.5) Hematocrit 36.1 % (36.0-47.0) Mean Corpuscular Volume 84 fL (79-100) Mean Corpuscular Hemoglobin 27 pg (25-35) Mean Corpuscular Hemoglobin Concent 32 g/dL (31-37) Red Cell Distribution Width 14.3 % (11.5-14.5) Platelet Count 364 x10^3/uL (140-400) Neutrophils (%) (Auto) 88 % (31-73) Lymphocytes (%) (Auto) 8 % (24-48) Monocytes (%) (Auto) 4 % (0-9) Eosinophils (%) (Auto) 0 % (0-3) Basophils (%) (Auto) 0 % (0-3) Neutrophils # (Auto) 10.9 x10^3/uL (1.8-7.7) Lymphocytes # (Auto) 1.0 x10^3/uL (1.0-4.8) Monocytes # (Auto) 0.4 x10^3/uL (0.0-1.1) Eosinophils # (Auto) 0.0 x10^3/uL (0.0-0.7) Basophils # (Auto) 0.0 x10^3/uL (0.0-0.2) Segmented Neutrophils % 89 % (35-66) Band Neutrophils % 4 % (0-9) Lymphocytes % 5 % (24-48) Monocytes % 2 % (0-10) Platelet Estimate Adequate (ADEQUATE) Sodium Level 139 mmol/L (136-145) Potassium Level 4.4 mmol/L (3.5-5.1) Chloride Level 104 mmol/L (98-107) Carbon Dioxide Level 25 mmol/L (21-32) Anion Gap 10 (6-14) Blood Urea Nitrogen 23 mg/dL (7-20) Creatinine 0.9 mg/dL (0.6-1.0) Estimated GFR (Cockcroft-Gault) 62.8 Glucose Level 210 mg/dL (70-99) Calcium Level 9.9 mg/dL (8.5-10.1) Troponin I Quantitative < 0.017 ng/mL (0.000-0.055) Triglycerides Level 104 mg/dL (0-150) Cholesterol Level 195 mg/dL (0-200) LDL Cholesterol, Calculated 89 mg/dL (0-100) VLDL Cholesterol, Calculated 21 mg/dL (0-40) Non-HDL Cholesterol Calculated 110 mg/dL (0-129) HDL Cholesterol 85 mg/dL (40-60) Cholesterol/HDL Ratio 2.3 Medications Active Scripts Medications Dose Route/Sig Max Daily Dose Days Date Category Clobetasol Propionate 15 Gm Cream..g. 1 Chanel TP Q2HR PRN 09/19/20 Reported Synthroid (Levothyroxine Sodium) 112 Mcg Tablet 1 Tab PO DAILY 09/19/20 Reported Oxycodone Hcl Immed.release (Oxycodone Hcl) 10 Mg Tablet 1 Tab PO Q6HRS PRN 09/19/20 Reported Duoneb 0.5-3(2.5) Mg/3 Ml (Albuterol/Ipratropium) 3 Ml Ampul.neb 1 Puff NEB Q4HRS PRN 09/19/20 Reported Combivent Respimat Inhal (Ipratropium/Albuterol Sulfate) 4 Gm Aer.w.adap 2 Inh INH Q4-6HRS PRN 09/19/20 Reported Baclofen 10 Mg Tablet 1 Tab PO TID PRN 09/19/20 Reported Glyburide 2.5 Mg Tablet 1 Tab PO DAILY 09/19/20 Reported Atorvastatin Calcium 20 Mg Tablet 2 Tab PO HS 30 10/26/19 Reported Lisinopril 5 Mg Tablet 1 Tab PO DAILY 30 10/26/19 Reported Aspirin Ec (Aspirin) 81 Mg Tablet.dr 1 Tab PO DAILY 10/26/19 Reported Tessalon Perle (Benzonatate) 100 Mg Capsule 1 Cap PO TID 08/08/18 Rx Daliresp (Roflumilast) 500 Mcg Tablet 1 Tab PO DAILY 02/12/16 Reported Ambien (Zolpidem Tartrate) 5 Mg Tablet 1 Tab PO PRN QHS PRN 09/17/14 Reported Fiber (Psyllium Husk) 0.52 Gm Capsule 0.52 Gm PO PRN DAILY PRN 07/10/14 Reported Vitamin D (Cholecalciferol (Vitamin D3)) 2,000 Unit Capsule 5,000 Unit PO DAILY 06/10/14 Reported Alprazolam 1 Mg Tablet 1 Tab PO TID PRN 06/10/14 Reported Cetirizine Hcl 10 Mg Tablet 10 Mg PO DAILY 03/23/14 Reported Fibercon (Calcium Polycarbophil) 625 Mg Tablet 625 Mg PO PRN DAILY 08/06/13 Reported Protonix Packet (Pantoprazole Sodium) 40 Mg Granpkt.dr 40 Mg PO DAILY08 08/06/13 Reported Singulair Tablet (Montelukast Sodium) 10 Mg Tablet 10 Mg PO DAILY 08/06/13 Reported Levothyroxine Sodium 100 Mcg Tablet 112 Mcg PO DAILY 08/06/13 Reported Benadryl (Diphenhydramine Hcl) 25 Mg Capsule 25-50 Mg PO PRN Q4HRS 08/06/13 Reported Cromolyn Sodium 20 Mg/2 Ml Ampul.neb 20 Mg IH PRN Q4HRS 08/06/13 Reported Symbicort 160-4.5 Mcg Inhaler (Budesonide/Formoterol Fumarate) 10.2 Gm Hfa.aer.ad 10.2 Gm IH BID 08/06/13 Reported Duoneb 0.5 Mg-3 Mg/3 Ml Soln (Ipratropium/Albuterol Sulfate) 3 Ml Ampul.neb 3 Ml IH Q4HRS 08/06/13 Reported Comments CXR IMPRESSION: 1. No radiographic evidence for acute cardiopulmonary process. Impression . IMPRESSION: 1. Dyspnea secondary to acute exacerbation of chronic obstructive pulmonary disease with an asthmatic component. 2. The patient with chronic obstructive pulmonary disease, overlapped with strong asthmatic component. Now has a trigger of symptoms related to scent exposure. 3. No clinical signs of bronchitis or pneumonia. 4. anurag on cpap Plan . RECOMMENDATIONS: Patient remains on room air i hear wheezing in her neck area w exhalation ? vc dysfunction discussed relaxation ? ent consult as outpt ?speech consult Continue steroids, change to pred 40 mg w taper by 10 mg q 3d Continue duo-nebs 4 times daily and as needed Avoid any exposure to scent/perfume Physical therapy/Occupational Therapy DVT/GI prophylaxis has anurag uses cpap at home the importance of anurag tx discussed ok to dc from pulm standpoint paul brooks Discussed with RN, pt YING DOWLING MD Sep 22, 2020 07:48
[2020-09-22 07:59] VITALS: BP 140/73
[2020-09-22] MEDS: BUDESONIDE 0.5 MG/2 ML NEBU. NEB SCH (08:00)
[2020-09-22] MEDS: glyBURIDE 5 MG TABLET PO SCH (08:45)
[2020-09-22] MEDS: ASPIRIN ENTERIC COATED 81 MG TABLET.DR. PO SCH (08:45)
[2020-09-22] MEDS: CROMOLYN 4% NASAL SPRAY 26ML BOTTLE. NS SCH ×2 (08:45→13:16)
[2020-09-22] MEDS: ROFLUMILAST 500 MCG TABLET. PO SCH (08:45)
[2020-09-22] MEDS: CETIRIZINE HCL 10 MG TABLET. PO SCH (08:45)
[2020-09-22] MEDS: CHOLECALCIFEROL (VITAMIN D3) 5,000 UNIT CAPSULE PO SCH (08:45)
[2020-09-22] MEDS: PANTOPRAZOLE 40 MG TABLET.DR. PO SCH (08:45)
[2020-09-22] MEDS: LISINOPRIL 5 MG TABLET. PO SCH (08:45)
[2020-09-22] MEDS: BENZONATATE 100 MG CAPSULE. PO SCH ×2 (08:46→13:16)
[2020-09-22] MEDS ORDERED: predniSONE 20 MG TABLET PO SCH (09:00)
--- NOTE | 2020-09-22 10:20 | PDOC ---
PROGRESS NOTES Date of Service: DATE: 09/22/20 TIME: 10:18 Chief Complaint Chief Complaint DISCHARGE DX Assessment/Plan Impression: Asthma exacerbation, ACUTE STATUS ASTHMATICUS MORBID OBESITY Acute respiratory failure chronic pain syndrome diabetes hypothyroid on oral replacement COPD EXAC allergy to perfumes and scents One vessel CAD involving the LCx. post stent ADMITTED o2 support PRN pulm consult albuterol q 4 hrs prn dvt prophylaxis IV SOLUMEDROL TAPER CHG PO PREDNISONE TAPER 09-22 GI PROPHYLAXIS ekg cardiology consult due to cad hx / dyspnea REVIEWED 08/21 REMAINS TO HAVE MODERATE EXP WHEEZES BILATERALLY , POOR air exchange , tight D/W RN PLAN D/C TODAY, AVOID PERFUMES, scents d/c planning 33 min Justifications for Admission status asthmaticus, copd exac History of Present Illness History of Present Illness Identification/Chief Complaint Chief Complaint SEEN IN ER WITH STATUS ASTHMATICUS 64 year old female coming in for 2 days of shortness of breath the cough productive of small amounts of white phlegm. WAS using her inhaler and DuoNeb treatments at home without improvement. she has had a total of 10 DuoNeb treatments 09-18 . Denies any known triggers. Denies any fevers, nausea, vomiting, diarrhea. has 30 pk yrs, but stopped smoking Past Medical History Pulmonary: Asthma, COPD GI: GERD Psych: Depression Rheumatologic: Fibromyalgia Endocrine: Hypothyroidism Past Surgical History Past Surgical History: Tonsillectomy, Hysterectomy Family History Family History: Hypertension Social History Smoke: Quit ALCOHOL: none Drugs: None Current Medications Vitals Vitals Vital Signs Date Time Temp Pulse Resp B/P (MAP) Pulse Ox O2 Delivery O2 Flow Rate FiO2 09/22/20 08:45 86 140/73 09/22/20 08:23 95 Room Air 09/22/20 07:59 97.8 20 97.8 Physical Exam Physical Exam Physical Exam Neck: No rigidity, supple, no stridor. [] Cardiovascular: Regular rate and rhythm, brisk cap refill [] Lungs & Thorax: MILD EXP no tachypnea. [] Abdomen: Soft, nondistended. Skin: Warm, dry, no erythema, no rash. [] Back: No tenderness, no CVA tenderness. [] Extremities: No deformities, range of motion grossly intact, no lower extremity edema [] Neurologic: Alert and oriented X 3, no focal deficits noted. [] Psychologic: Affect normal, judgement normal, mood normal. [] General: Alert, Oriented X3, Cooperative, No acute distress HEENT: Mucous membr. moist/pink Heart: no thrills Breasts: Not examined Abdomen: Normal bowel sounds, Soft Rectal Exam: not examined PELVIC: Examination not indicated Extremities: No cyanosis Neuro: Normal speech, Sensation intact, Cranial nerves 3-12 NL Psych/Mental Status: Mental status NL, Mood NL General: Alert, Oriented X3, Cooperative, No acute distress Heart: Regular rate, Normal S1 Lungs: Clear, Other (good air movement ) Abdomen: Normal bowel sounds, Soft, No hepatosplenomegaly Extremities: No clubbing, No cyanosis, No edema, Normal pulses Skin: No rashes, No breakdown Comment Review of Relevant I have reviewed the following items blayne (where applicable) has been applied. Medications Current Medications Sodium Chloride 500 ml @ 500 mls/hr 1X ONCE IV Last administered on 09/18/20at 20:54; Start 09/18/20 at 20:45; Stop 09/18/20 at 21:44; Status DC Albuterol/ Ipratropium (Duoneb) 3 ml 1X ONCE NEB Last administered on 09/18/20at 21:11; Start 09/18/20 at 20:45; Stop 09/18/20 at 20:46; Status DC Methylprednisolone Sodium Succinate (SOLU-Medrol 125MG VIAL) 125 mg 1X ONCE IV Last administered on 09/18/20at 22:02; Start 09/18/20 at 21:00; Stop 09/18/20 at 21:01; Status DC Albuterol/ Ipratropium (Duoneb) 3 ml 1X ONCE NEB Last administered on 09/19/20at 00:00; Start 09/19/20 at 00:00; Stop 09/19/20 at 00:01; Status DC Sodium Chloride 500 ml @ 500 mls/hr 1X ONCE IV Last administered on 09/19/20at 00:18; Start 09/19/20 at 00:00; Stop 09/19/20 at 00:59; Status DC Methylprednisolone Sodium Succinate (SOLU-Medrol 125MG VIAL) 125 mg 1X ONCE IV Last administered on 09/19/20at 00:17; Start 09/19/20 at 00:15; Stop 09/19/20 at 00:16; Status DC Fentanyl Citrate (Fentanyl 2ml Vial) 75 mcg 1X ONCE IVP Last administered on 09/19/20at 00:33; Start 09/19/20 at 00:30; Stop 09/19/20 at 00:40; Status DC Ondansetron HCl (Zofran) 4 mg PRN Q8HRS PRN IV NAUSEA/VOMITING; Start 09/19/20 at 02:00; Stop 09/20/20 at 01:59; Status DC Fentanyl Citrate (Fentanyl 2ml Vial) 50 mcg PRN Q1HR PRN IV PAIN Last administ ered on 09/19/20at 09:44; Start 09/19/20 at 02:00; Stop 09/20/20 at 01:59; Status DC Albuterol/ Ipratropium (Duoneb) 3 ml RTQID NEB Last administered on 09/19/20at 12:40; Start 09/19/20 at 08:00; Stop 09/19/20 at 13:50; Status DC Ketorolac Tromethamine (Toradol 15mg Vial) 15 mg 1X ONCE IVP ; Start 09/19/20 at 02:15; Stop 09/19/20 at 02:16; Status DC Albuterol/ Ipratropium (Duoneb) 3 ml RTQID STAT NEB ; Start 09/19/20 at 05:16; Stop 09/19/20 at 05:22; Status DC Albuterol Sulfate (Ventolin Neb Soln) 2.5 mg PRN QID PRN NEB SHORTNESS OF BREATH; Start 09/19/20 at 05:30; Stop 09/20/20 at 16:51; Status DC Influenza Virus Vaccine Quadrival (Fluzone Quad Syringe) 0.5 ml ONCE ONCE VAX IM Last administered on 09/19/20at 12:58; Start 09/19/20 at 09:00; Stop 09/19/20 at 09:01; Status DC Methylprednisolone Sodium Succinate (SOLU-Medrol 40MG VIAL) 60 mg Q8HRS IV Last administered on 09/21/20at 04:16; Start 09/19/20 at 14:00; Stop 09/21/20 at 11:00; Status DC Oxycodone HCl (Roxicodone) 10 mg PRN Q8HRS PRN PO PAIN Last administered on 09/19/20at 12:54; Start 09/19/20 at 11:00; Stop 09/19/20 at 14:08; Status DC Levothyroxine Sodium (Synthroid) 112 mcg DAILY06 PO Last administered on 09/22/20at 04:49; Start 09/19/20 at 14:00 Alprazolam (Xanax) 1 mg PRN TID PRN PO ANXIETY / AGITATION Last administered on 09/19/20at 20:37; Start 09/19/20 at 13:45 Aspirin (Ecotrin) 81 mg DAILY PO Last administered on 09/22/20at 08:45; Start 09/19/20 at 14:00 Atorvastatin Calcium (Lipitor) 40 mg QHS PO Last administered on 09/21/20at 21:05; Start 09/19/20 at 21:00 Baclofen (Lioresal) 10 mg PRN TID PRN PO MUSCLE PAIN; Start 09/19/20 at 13:45 Benzonatate (Tessalon Perle) 100 mg TID PO Last administered on 09/22/20at 08:46; Start 09/19/20 at 14:00 Calcium Polycarbophil (Fibercon) 625 mg PRN DAILY PRN PO CONSTIPATION, 1st CHOICE; Start 09/19/20 at 13:45 Cetirizine HCl (ZyrTEC) 10 mg DAILY PO Last administered on 09/22/20at 08:45; Start 09/19/20 at 14:00 Albuterol/ Ipratropium (Duoneb) 3 ml Q4HRS IH Last administered on 09/22/20at 08:00; Start 09/19/20 at 16:00 Albuterol/ Ipratropium (Duoneb) 3 ml Q4HRS PRN NEB WHEEZING; Start 09/19/20 at 13:45; Stop 09/19/20 at 13:50; Status DC Levothyroxine Sodium (Synthroid) 112 mcg DAILY PO ; Start 09/20/20 at 09:00; Status UNV Lisinopril (Prinivil) 5 mg DAILY PO Last administered on 09/22/20at 08:45; Start 09/19/20 at 14:00 Montelukast Sodium (Singulair) 10 mg QHS PO Last administered on 09/21/20at 21:05; Start 09/19/20 at 21:00 Roflumilast (Daliresp) 500 mcg DAILY PO Last administered on 09/22/20at 08:45; Start 09/19/20 at 14:00 Zolpidem Tartrate (Ambien) 5 mg PRN QHS PRN PO INSOMNIA; Start 09/19/20 at 13:45 Budesonide (Pulmicort) 0.5 mg RTBID NEB Last administered on 09/22/20at 08:00; Start 09/19/20 at 20:00 Vitamin D (Vitamin D3) 5,000 unit DAILY PO Last administered on 09/22/20at 08:45; Start 09/19/20 at 14:00 Clobetasol Propionate (Temovate) 1 chanel PRN Q2HRS PRN TP SKIN CLEANSING Last administered on 09/20/20at 16:22; Start 09/19/20 at 14:00 Non-Formulary Medication (Cromolyn Sodium ) 20 mg PRN Q4HRS IH ; Start 09/19/20 at 13:45; Status UNV Glyburide (Diabeta) 2.5 mg DAILY PO Last administered on 09/22/20at 08:45; S tart 09/19/20 at 14:30 Non-Formulary Medication (Ipratropium/ Albuterol Sulfate (Combivent Respimat Inhal)) 2 inh Q4-6HRS PRN INH WHEEZING; Start 09/19/20 at 13:45; Status UNV Oxycodone HCl (Roxicodone) 10 mg PRN Q6HRS PRN PO MODERATE TO SEVERE PAIN Last administered on 09/22/20at 04:49; Start 09/19/20 at 14:15 Pantoprazole Sodium (Protonix) 40 mg DAILYAC PO Last administered on 09/22/20at 08:45; Start 09/20/20 at 07:30 Psyllium Hydrophilic Mucilloid (Metamucil Fiber Packet) 1 pkt PRN DAILY PRN PO CONSTIPATION, 2nd CHOICE; Start 09/19/20 at 14:00 Sodium Chloride (Normal Saline Flush) 3 ml QSHIFT PRN IV AFTER MEDS AND BLOOD DRAWS; Start 09/19/20 at 14:45 Ondansetron HCl (Zofran) 4 mg PRN Q4HRS PRN IV NAUSEA/VOMITING Last administered on 09/20/20at 09:03; Start 09/19/20 at 14:45 Acetaminophen (Tylenol) 650 mg PRN Q4HRS PRN PO TEMP OVER 100.4F OR MILD PAIN; Start 09/19/20 at 14:45 Al Hydroxide/Mg Hydroxide (Mylanta Plus Xs) 30 ml PRN DAILY PRN PO HEARTBURN / GAS; Start 09/19/20 at 14:45 Sodium Monofluorophosphate (Fleet Adult) 133 ml PRN DAILY PRN AR CONSTIPATION; Start 09/19/20 at 14:45 Docusate Sodium (Colace) 100 mg PRN BID PRN PO HARD STOOLS; Start 09/19/20 at 14:45 Guaifenesin (Robitussin) 200 mg PRN Q4HRS PRN PO COUGH; Start 09/19/20 at 14:45 Enoxaparin Sodium (Lovenox 40mg Syringe) 40 mg Q24H SQ Last administered on 09/21/20at 14:20; Start 09/19/20 at 15:00 Diphenhydramine HCl (Benadryl) 25 mg PRN Q6HRS PRN PO ITCHING Last administered on 09/22/20at 04:49; Start 09/20/20 at 15:45 Cromolyn Sodium (Nasalcrom) 1 spray TID NS Last administered on 09/22/20at 08:45; Start 09/20/20 at 21:00 Albuterol Sulfate (Ventolin Neb Soln) 2.5 mg PRN Q4HRS PRN NEB SHORTNESS OF BREATH Last administered on 09/22/20at 05:15; Start 09/20/20 at 17:00 Methylprednisolone Sodium Succinate (SOLU-Medrol 40MG VIAL) 40 mg Q8HRS IV Last administered on 09/22/20at 04:50; Start 09/21/20 at 14:00; Stop 09/22/20 at 07:56; Status DC Prednisone (Prednisone) 40 mg DAILY PO Last administered on 09/22/20at 08:46; Start 09/22/20 at 09:00 Active Scripts Active Tessalon Perle (Benzonatate) 100 Mg Capsule 1 Cap PO TID Reported Clobetasol Propionate 15 Gm Cream..g. 1 Chanel TP Q2HR PRN Synthroid (Levothyroxine Sodium) 112 Mcg Tablet 1 Tab PO DAILY Oxycodone Hcl Immed.release (Oxycodone Hcl) 10 Mg Tablet 1 Tab PO Q6HRS PRN Duoneb 0.5-3(2.5) Mg/3 Ml (Albuterol/Ipratropium) 3 Ml Ampul.neb 1 Puff NEB Q4HRS PRN Combivent Respimat Inhal (Ipratropium/Albuterol Sulfate) 4 Gm Aer.w.adap 2 Inh INH Q4-6HRS PRN Baclofen 10 Mg Tablet 1 Tab PO TID PRN Glyburide 2.5 Mg Tablet 1 Tab PO DAILY Atorvastatin Calcium 20 Mg Tablet 2 Tab PO HS 30 Days Lisinopril 5 Mg Tablet 1 Tab PO DAILY 30 Days Aspirin Ec (Aspirin) 81 Mg Tablet. 1 Tab PO DAILY Daliresp (Roflumilast) 500 Mcg Tablet 1 Tab PO DAILY Ambien (Zolpidem Tartrate) 5 Mg Tablet 1 Tab PO PRN QHS PRN Fiber (Psyllium Husk) 0.52 Gm Capsule 0.52 Gm PO PRN DAILY PRN Vitamin D (Cholecalciferol (Vitamin D3)) 2,000 Unit Capsule 5,000 Unit PO DAILY Alprazolam 1 Mg Tablet 1 Tab PO TID PRN Cetirizine Hcl 10 Mg Tablet 10 Mg PO DAILY Fibercon (Calcium Polycarbophil) 625 Mg Tablet 625 Mg PO PRN DAILY Protonix Packet (Pantoprazole Sodium) 40 Mg Granpkt. 40 Mg PO DAILY08 Singulair Tablet (Montelukast Sodium) 10 Mg Tablet 10 Mg PO DAILY Levothyroxine Sodium 100 Mcg Tablet 112 Mcg PO DAILY Benadryl (Diphenhydramine Hcl) 25 Mg Capsule 25-50 Mg PO PRN Q4HRS Cromolyn Sodium 20 Mg/2 Ml Ampul.neb 20 Mg IH PRN Q4HRS Symbicort 160-4.5 Mcg Inhaler (Budesonide/Formoterol Fumarate) 10.2 Gm Hfa.aer.ad 10.2 Gm IH BID Duoneb 0.5 Mg-3 Mg/3 Ml Soln (Ipratropium/Albuterol Sulfate) 3 Ml Ampul.neb 3 Ml IH Q4HRS Vitals/I & O Vital Sign - Last 24 Hours 09/21/20 09/21/20 09/21/20 09/21/20 10:41 11:00 11:46 11:51 Temp 97.5 97.5 Pulse 83 Resp 18 B/P (MAP) 136/75 (95) Pulse Ox 93 O2 Delivery Room Air Room Air Room Air Room Air 09/21/20 09/21/20 09/21/20 09/21/20 15:00 15:26 16:41 17:40 Temp 96.7 96.7 Pulse 80 Resp 18 B/P (MAP) 128/72 (90) Pulse Ox 94 95 O2 Delivery Room Air Room Air Room Air Room Air 09/21/20 09/21/20 09/21/20 09/21/20 18:24 20:10 21:00 22:52 Temp 98.1 98.1 Pulse 86 Resp 18 20 B/P (MAP) 115/68 (84) Pulse Ox 95 95 O2 Delivery Room Air Room Air Room Air Room Air 09/21/20 09/21/20 09/21/20 09/22/20 23:30 23:52 23:55 03:00 Temp 97.5 97.8 97.5 97.8 Pulse 80 75 Resp 18 20 18 B/P (MAP) 135/70 (91) 125/67 (86) Pulse Ox 94 96 93 O2 Delivery Room Air Room Air 09/22/20 09/22/20 09/22/20 09/22/20 03:30 04:49 05:15 05:49 Resp 24 20 Pulse Ox 96 95 O2 Delivery Room Air Room Air Room Air Room Air 09/22/20 09/22/20 09/22/20 07:59 08:23 08:45 Temp 97.8 97.8 Pulse 86 86 Resp 20 B/P (MAP) 140/73 (95) 140/73 Pulse Ox 93 95 O2 Delivery Room Air Room Air Intake and Output 09/21/20 09/21/20 09/22/20 15:00 23:00 07:00 Intake Total 580 ml 760 ml 500 ml Balance 580 ml 760 ml 500 ml Justicifation of Admission Dx: Justifications for Admission: Justification of Admission Dx: N/A ERICA HERNANDEZ MD Sep 22, 2020 10:20
--- NOTE | 2020-09-22 11:11 | PDOC3 ---
Discharge Summary Date of Admission: Sep 19, 2020 Date of Discharge: Sep 22, 2020 Follow-Up: 3-5 days Admitting Diagnosis comment: DISCHARGE DX Assessment/Plan Impression: Asthma exacerbation, ACUTE STATUS ASTHMATICUS MORBID OBESITY Acute respiratory failure chronic pain syndrome diabetes hypothyroid on oral replacement COPD EXAC allergy to perfumes and scents One vessel CAD involving the LCx. post stent ADMITTED o2 support PRN pulm consult albuterol q 4 hrs prn dvt prophylaxis IV SOLUMEDROL TAPER CHG PO PREDNISONE TAPER 16 GI PROPHYLAXIS ekg cardiology consult due to cad hx / dyspnea REVIEWED 08/21 REMAINS TO HAVE MODERATE EXP WHEEZES BILATERALLY , POOR air exchange , tight D/W RN PLAN D/C TODAY, AVOID PERFUMES, scents d/c planning 33 min Justifications for Admission status asthmaticus, copd exac History of Present Illness History of Present Illness Identification/Chief Complaint Chief Complaint SEEN IN ER WITH STATUS ASTHMATICUS 64 year old female coming in for 2 days of shortness of breath the cough productive of small amounts of white phlegm. WAS using her inhaler and DuoNeb treatments at home without improvement. she has had a total of 10 DuoNeb treatments 09-18 . Denies any known triggers. Denies any fevers, nausea, vomiting, diarrhea. has 30 pk yrs, but stopped smoking Past Medical History Pulmonary: Asthma, COPD GI: GERD Psych: Depression Rheumatologic: Fibromyalgia Endocrine: Hypothyroidism Past Surgical History Past Surgical History: Tonsillectomy, Hysterectomy Family History Family History: Hypertension Social History Smoke: Quit ALCOHOL: none Drugs: None Current Medications Vitals Vitals Vital Signs Date Time Temp Pulse Resp B/P (MAP) Pulse Ox O2 Delivery O2 Flow Rate FiO2 09/22/20 08:45 86 140/73 09/22/20 08:23 95 Room Air 09/22/20 07:59 97.8 20 97.8 Physical Exam Neck: No rigidity, supple, no stridor. [] Cardiovascular: Regular rate and rhythm, brisk cap refill [] Lungs & Thorax: MILD EXP no tachypnea. [] Abdomen: Soft, nondistended. Skin: Warm, dry, no erythema, no rash. [] Back: No tenderness, no CVA tenderness. [] Extremities: No deformities, range of motion grossly intact, no lower extremity edema [] Neurologic: Alert and oriented X 3, no focal deficits noted. [] Psychologic: Affect normal, judgement normal, mood normal. [] General: Alert, Oriented X3, Cooperative, No acute distress HEENT: Mucous membr. moist/pink Heart: no thrills Breasts: Not examined Abdomen: Normal bowel sounds, Soft Rectal Exam: not examined PELVIC: Examination not indicated Extremities: No cyanosis Neuro: Normal speech, Sensation intact, Cranial nerves 3-12 NL Psych/Mental Status: Mental status NL, Mood NL General: Alert, Oriented X3, Cooperative, No acute distress Heart: Regular rate, Normal S1 Lungs: Clear, Other (good air movement ) Abdomen: Normal bowel sounds, Soft, No hepatosplenomegaly Extremities: No clubbing, No cyanosis, No edema, Normal pulses Skin: No rashes, No breakdown Brief Hospital Course Ms. Hemphill is a 64 old [sex] who presented with [ STATUS ASMATICUS ] CONDITION AT DISCHARGE: Improved Discharge Medications Current Medications Sodium Chloride 500 ml @ 500 mls/hr 1X ONCE IV Last administered on 09/18/20at 20:54; Start 09/18/20 at 20:45; Stop 09/18/20 at 21:44; Status DC Albuterol/ Ipratropium (Duoneb) 3 ml 1X ONCE NEB Last administered on 09/18/20at 21:11; Start 09/18/20 at 20:45; Stop 09/18/20 at 20:46; Status DC Methylprednisolone Sodium Succinate (SOLU-Medrol 125MG VIAL) 125 mg 1X ONCE IV Last administered on 09/18/20at 22:02; Start 09/18/20 at 21:00; Stop 09/18/20 at 21:01; Status DC Albuterol/ Ipratropium (Duoneb) 3 ml 1X ONCE NEB Last administered on 09/19/20at 00:00; Start 09/19/20 at 00:00; Stop 09/19/20 at 00:01; Status DC Sodium Chloride 500 ml @ 500 mls/hr 1X ONCE IV Last administered on 09/19/20at 00:18; Start 09/19/20 at 00:00; Stop 09/19/20 at 00:59; Status DC Methylprednisolone Sodium Succinate (SOLU-Medrol 125MG VIAL) 125 mg 1X ONCE IV Last administered on 09/19/20at 00:17; Start 09/19/20 at 00:15; Stop 09/19/20 at 00:16; Status DC Fentanyl Citrate (Fentanyl 2ml Vial) 75 mcg 1X ONCE IVP Last administered on 09/19/20at 00:33; Start 09/19/20 at 00:30; Stop 09/19/20 at 00:40; Status DC Ondansetron HCl (Zofran) 4 mg PRN Q8HRS PRN IV NAUSEA/VOMITING; Start 09/19/20 at 02:00; Stop 09/20/20 at 01:59; Status DC Fentanyl Citrate (Fentanyl 2ml Vial) 50 mcg PRN Q1HR PRN IV PAIN Last administered on 09/19/20at 09:44; Start 09/19/20 at 02:00; Stop 09/20/20 at 01:59; Status DC Albuterol/ Ipratropium (Duoneb) 3 ml RTQID NEB Last administered on 09/19/20at 12:40; Start 09/19/20 at 08:00; Stop 09/19/20 at 13:50; Status DC Ketorolac Tromethamine (Toradol 15mg Vial) 15 mg 1X ONCE IVP ; Start 09/19/20 at 02:15; Stop 09/19/20 at 02:16; Status DC Albuterol/ Ipratropium (Duoneb) 3 ml RTQID STAT NEB ; Start 09/19/20 at 05:16; Stop 09/19/20 at 05:22; Status DC Albuterol Sulfate (Ventolin Neb Soln) 2.5 mg PRN QID PRN NEB SHORTNESS OF BREATH; Start 09/19/20 at 05:30; Stop 09/20/20 at 16:51; Status DC Influenza Virus Vaccine Quadrival (Fluzone Quad Syringe) 0.5 ml ONCE ONCE VAX IM Last administered on 09/19/20at 12:58; Start 09/19/20 at 09:00; Stop 09/19/20 at 09:01; Status DC Methylprednisolone Sodium Succinate (SOLU-Medrol 40MG VIAL) 60 mg Q8HRS IV Last administered on 09/21/20at 04:16; Start 09/19/20 at 14:00; Stop 09/21/20 at 11:00; Status DC Oxycodone HCl (Roxicodone) 10 mg PRN Q8HRS PRN PO PAIN Last administered on 09/19/20at 12:54; Start 09/19/20 at 11:00; Stop 09/19/20 at 14:08; Status DC Levothyroxine Sodium (Synthroid) 112 mcg DAILY06 PO Last administered on 09/22/20at 04:49; Start 09/19/20 at 14:00 Alprazolam (Xanax) 1 mg PRN TID PRN PO ANXIETY / AGITATION Last administered on 09/19/20at 20:37; Start 09/19/20 at 13:45 Aspirin (Ecotrin) 81 mg DAILY PO Last administered on 09/22/20at 08:45; Start 09/19/20 at 14:00 Atorvastatin Calcium (Lipitor) 40 mg QHS PO Last administered on 09/21/20at 21:05; Start 09/19/20 at 21:00 Baclofen (Lioresal) 10 mg PRN TID PRN PO MUSCLE PAIN; Start 09/19/20 at 13:45 Benzonatate (Tessalon Perle) 100 mg TID PO Last administered on 09/22/20at 08:46; Start 09/19/20 at 14:00 Calcium Polycarbophil (Fibercon) 625 mg PRN DAILY PRN PO CONSTIPATION, 1st CHOICE; Start 09/19/20 at 13:45 Cetirizine HCl (ZyrTEC) 10 mg DAILY PO Last administered on 09/22/20at 08:45; Start 09/19/20 at 14:00 Albuterol/ Ipratropium (Duoneb) 3 ml Q4HRS IH Last administered on 09/22/20at 08:00; Start 09/19/20 at 16:00 Albuterol/ Ipratropium (Duoneb) 3 ml Q4HRS PRN NEB WHEEZING; Start 09/19/20 at 13:45; Stop 09/19/20 at 13:50; Status DC Levothyroxine Sodium (Synthroid) 112 mcg DAILY PO ; Start 09/20/20 at 09:00; Status UNV Lisinopril (Prinivil) 5 mg DAILY PO Last administered on 09/22/20at 08:45; Start 09/19/20 at 14:00 Montelukast Sodium (Singulair) 10 mg QHS PO Last administered on 09/21/20at 21:05; Start 09/19/20 at 21:00 Roflumilast (Daliresp) 500 mcg DAILY PO Last administered on 09/22/20at 08:45; Start 09/19/20 at 14:00 Zolpidem Tartrate (Ambien) 5 mg PRN QHS PRN PO INSOMNIA; Start 09/19/20 at 13:45 Budesonide (Pulmicort) 0.5 mg RTBID NEB Last administered on 09/22/20at 08:00; Start 09/19/20 at 20:00 Vitamin D (Vitamin D3) 5,000 unit DAILY PO Last administered on 09/22/20at 08:45; Start 09/19/20 at 14:00 Clobetasol Propionate (Temovate) 1 chanel PRN Q2HRS PRN TP SKIN CLEANSING Last administered on 09/20/20 16:22; Start 09/19/20 at 14:00 Non-Formulary Medication (Cromolyn Sodium ) 20 mg PRN Q4HRS IH ; Start 09/19/20 at 13:45; Status UNV Glyburide (Diabeta) 2.5 mg DAILY PO Last administered on 09/22/20at 08:45; Start 09/19/20 at 14:30 Non-Formulary Medication (Ipratropium/ Albuterol Sulfate (Combivent Respimat Inhal)) 2 inh Q4-6HRS PRN INH WHEEZING; Start 09/19/20 at 13:45; Status UNV Oxycodone HCl (Roxicodone) 10 mg PRN Q6HRS PRN PO MODERATE TO SEVERE PAIN Last administered on 09/22/20at 04:49; Start 09/19/20 at 14:15 Pantoprazole Sodium (Protonix) 40 mg DAILYAC PO Last administered on 09/22/20at 08:45; Start 09/20/20 at 07:30 Psyllium Hydrophilic Mucilloid (Metamucil Fiber Packet) 1 pkt PRN DAILY PRN PO CONSTIPATION, 2nd CHOICE; Start 09/19/20 at 14:00 Sodium Chloride (Normal Saline Flush) 3 ml QSHIFT PRN IV AFTER MEDS AND BLOOD DRAWS; Start 09/19/20 at 14:45 Ondansetron HCl (Zofran) 4 mg PRN Q4HRS PRN IV NAUSEA/VOMITING Last administered on 09/20/20at 09:03; Start 09/19/20 at 14:45 Acetaminophen (Tylenol) 650 mg PRN Q4HRS PRN PO TEMP OVER 100.4F OR MILD PAIN; Start 09/19/20 at 14:45 Al Hydroxide/Mg Hydroxide (Mylanta Plus Xs) 30 ml PRN DAILY PRN PO HEARTBURN / GAS; Start 09/19/20 at 14:45 Sodium Monofluorophosphate (Fleet Adult) 133 ml PRN DAILY PRN [place] CONSTIPATION; Start 09/19/20 at 14:45 Docusate Sodium (Colace) 100 mg PRN BID PRN PO HARD STOOLS; Start 09/19/20 at 14:45 Guaifenesin (Robitussin) 200 mg PRN Q4HRS PRN PO COUGH; Start 09/19/20 at 14:45 Enoxaparin Sodium (Lovenox 40mg Syringe) 40 mg Q24H SQ Last administered on 09/21/20at 14:20; Start 09/19/20 at 15:00 Diphenhydramine HCl (Benadryl) 25 mg PRN Q6HRS PRN PO ITCHING Last administered on 09/22/20at 04:49; Start 09/20/20 at 15:45 Cromolyn Sodium (Nasalcrom) 1 spray TID NS Last administered on 09/22/20at 08:45; Start 09/20/20 at 21:00 Albuterol Sulfate (Ventolin Neb Soln) 2.5 mg PRN Q4HRS PRN NEB SHORTNESS OF BREATH Last administered on 09/22/20at 05:15; Start 09/20/20 at 17:00 Methylprednisolone Sodium Succinate (SOLU-Medrol 40MG VIAL) 40 mg Q8HRS IV Last administered on 09/22/20at 04:50; Start 09/21/20 at 14:00; Stop 09/22/20 at 07:56; Status DC Prednisone (Prednisone) 40 mg DAILY PO Last administered on 09/22/20at 08:46; Start 09/22/20 at 09:00 Active Scripts Active Tessalon Perle (Benzonatate) 100 Mg Capsule 1 Cap PO TID Reported Clobetasol Propionate 15 Gm Cream..g. 1 Chanel TP Q2HR PRN Synthroid (Levothyroxine Sodium) 112 Mcg Tablet 1 Tab PO DAILY Oxycodone Hcl Immed.release (Oxycodone Hcl) 10 Mg Tablet 1 Tab PO Q6HRS PRN Duoneb 0.5-3(2.5) Mg/3 Ml (Albuterol/Ipratropium) 3 Ml Ampul.neb 1 Puff NEB Q4HRS PRN Combivent Respimat Inhal (Ipratropium/Albuterol Sulfate) 4 Gm Aer.w.adap 2 Inh INH Q4-6HRS PRN Baclofen 10 Mg Tablet 1 Tab PO TID PRN Glyburide 2.5 Mg Tablet 1 Tab PO DAILY Atorvastatin Calcium 20 Mg Tablet 2 Tab PO HS 30 Days Lisinopril 5 Mg Tablet 1 Tab PO DAILY 30 Days Aspirin Ec (Aspirin) 81 Mg Tablet. 1 Tab PO DAILY Daliresp (Roflumilast) 500 Mcg Tablet 1 Tab PO DAILY Ambien (Zolpidem Tartrate) 5 Mg Tablet 1 Tab PO PRN QHS PRN Fiber (Psyllium Husk) 0.52 Gm Capsule 0.52 Gm PO PRN DAILY PRN Vitamin D (Cholecalciferol (Vitamin D3)) 2,000 Unit Capsule 5,000 Unit PO DAILY Alprazolam 1 Mg Tablet 1 Tab PO TID PRN Cetirizine Hcl 10 Mg Tablet 10 Mg PO DAILY Fibercon (Calcium Polycarbophil) 625 Mg Tablet 625 Mg PO PRN DAILY Protonix Packet (Pantoprazole Sodium) 40 Mg Granpkt. 40 Mg PO DAILY08 Singulair Tablet (Montelukast Sodium) 10 Mg Tablet 10 Mg PO DAILY Levothyroxine Sodium 100 Mcg Tablet 112 Mcg PO DAILY Benadryl (Diphenhydramine Hcl) 25 Mg Capsule 25-50 Mg PO PRN Q4HRS Cromolyn Sodium 20 Mg/2 Ml Ampul.neb 20 Mg IH PRN Q4HRS Symbicort 160-4.5 Mcg Inhaler (Budesonide/Formoterol Fumarate) 10.2 Gm Hfa.aer.ad 10.2 Gm IH BID Duoneb 0.5 Mg-3 Mg/3 Ml Soln (Ipratropium/Albuterol Sulfate) 3 Ml Ampul.neb 3 Ml IH Q4HRS Vital Signs Vital Signs Date Time Temp Pulse Resp B/P (MAP) Pulse Ox O2 Delivery O2 Flow Rate FiO2 09/22/20 08:45 86 140/73 09/22/20 08:23 95 Room Air 09/22/20 07:59 97.8 20 97.8 Allergies Allergies Coded Allergies Type Severity Reaction Last Updated Verified gadopentetate dimeglumine Allergy Severe Anaphylaxis 07/09/14 Yes levofloxacin Allergy Severe Hives 11/09/15 Yes acetaminophen Allergy Intermediate Itching 12/28/17 Yes adhesive Allergy Intermediate Rash 07/09/14 Yes hydrocodone Allergy Intermediate Itching 12/28/17 Yes Sulfa (Sulfonamide Antibiotics) Adverse Reaction Intermediate ABDOMINAL PAIN 07/15/14 Yes diazepam Adverse Reaction Intermediate "MAKES ME CRAZY" 07/15/14 Yes procaine Adverse Reaction Intermediate Nausea and Vomiting 07/15/14 Yes doxycycline Adverse Reaction Mild Nausea and Vomiting 02/16/16 Yes Uncoded Allergies Type Severity Reaction Last Updated Verified "SCENTS" Allergy Severe 03/13/18 Disposition/Orders: D/C to Home Justicifation of Admission Dx: Justifications for Admission: Justification of Admission Dx: N/A ERICA HERNANDEZ MD Sep 22, 2020 11:11
[2020-09-22] MEDS ORDERED: ACET325T9 PO (11:17)
[2020-09-22] MEDS ORDERED: DOCU-153 PO (11:17)
[2020-09-22] MEDS ORDERED: MAG30ORA2 PO (11:17)
[2020-09-22] MEDS ORDERED: CROM26SP NS (11:17)
[2020-09-22] MEDS ORDERED: PRED20TA PO ×2 (11:17)
[2020-09-22] MEDS ORDERED: ALBU2.5V8 NEB (11:17)
[2020-09-22] MEDS ORDERED: GUAI100L12 PO (11:17)
--- NOTE | 2020-09-22 11:19 | DISCH ---
DISCHARGE INSTRUCTIONS Condition on Discharge Condition on Discharge: Stable Activity After Discharge Activity Instructions for Disc: Activity as tolerated, Avoid high altitudes, Other, see below Lifting Instructions after Dis: No heavy lifting, No pulling or pushing, Do not lift >10 pounds Driving Instructions after Dis: Do not drive today Weight Bearing Status after Di: As tolerated Diet after Discharge Diet after Discharge: Cardiac, Diabetic No Calorie Level Diet Texture: Regular Liquid Texture: Thin Liquid Swallowing Supervision: None needed Checks after Discharge Checks after discharge: Check blood press - daily, Check blood sugar, ac/hs, Check your Temp as needed Contacting the DR. after DC Call your doctor for: If your condition worsens Follow-Up Follow up with: SEE PCP [facility] NEXT WEEK, PULMONARY SOON DIRECTED Treatment/Equipment after DC Adaptive Equipment Issued: None Discharge Respiratory Equipmen: Oxygen ERICA HERNANDEZ MD Sep 22, 2020 11:19
[2020-09-22 11:59] VITALS: BP 117/56
--- NOTE | 2020-09-22 15:22 | NUR ---
Discharge Note: PT DISCHARGED HOME WITH SELF CARE. PT LEFT FACILITY VIA PRIVATE VEHICLE WITH SELF AT 1455. PT STABLE AND ALERT UPON DISCHARGE. PT PIV REMOVED FROM R FA WITHOUT COMPLICATIONS, BANDAGE APPLIED. PT EDUCATED ABOUT DISCHARGE INSTRUCTIONS, DISCHARGE MEDICATIONS, AND FOLLOW-UP CARE. PT PRESCRIPTIONS FOR CROMOLYN, PREDNISONE 40MG AND PREDNISONE 30MG CALLED INTO [facility] ON [address] PER PT REQUEST AT 1524. NO CONCERNS VOICED UPON DISCHARGE. PT LEFT WITH ALL PERSONAL BELONGINGS. JAMARCUS HOLDEN Discharge instructions and discharge home medications reviewed with Patient and a copy given. All questions have been answered and understanding verbalized.
== END 2020-09-22 14:55 | disposition home or self-care (01) | DRG 189 ==
LOC: ER 19:37 → 5 NORTH 09-19 01:51 → OBSVTOIN 09-20 14:47
PROVIDERS: ADMIT Internal Medicine; ATTEND Internal Medicine
DX: J96.00 Acute respiratory failure, unspecified whether with hypoxia or hypercapnia (principal); I50.32 Chronic diastolic (congestive) heart failure; J44.1 Chronic obstructive pulmonary disease with (acute) exacerbation; E03.9 Hypothyroidism, unspecified; E11.9 Type 2 diabetes mellitus without complications; E66.01 Morbid (severe) obesity due to excess calories; G47.33 Obstructive sleep apnea (adult) (pediatric); G89.4 Chronic pain syndrome; I11.0 Hypertensive heart disease with heart failure; I25.10 Atherosclerotic heart disease of native coronary artery without angina pectoris; M19.90 Unspecified osteoarthritis, unspecified site; F32.9 Major depressive disorder, single episode, unspecified; K21.9 Gastro-esophageal reflux disease without esophagitis; F41.9 Anxiety disorder, unspecified; R07.89 Other chest pain; Z82.49 Family history of ischemic heart disease and other diseases of the circulatory system; Z87.891 Personal history of nicotine dependence; Z90.710 Acquired absence of both cervix and uterus; Z88.1 Allergy status to other antibiotic agents; Z88.2 Allergy status to sulfonamides; Z88.8 Allergy status to other drugs, medicaments and biological substances; Z91.048 Other nonmedicinal substance allergy status; Z68.33 Body mass index [BMI] 33.0-33.9, adult
CPT/HCPCS: 36415; 71045; 80048; 80053; 80061; 83605; 83735; 83880; 84484; 85007; 85025; 85379; 90471; 90686; 93005; 94640; 94760; 96361; 96374; 96375; G0378; G0379; J1650; J2405; J2920; J2930; J3010; J7040; J7512; 99285-25; J7613; J7626; Q0163

== ENCOUNTER 2020-12-15 23:55 | Emergency (ER) | payer MEDICARE ==
[~2020-12-15] VITALS: Ht 167.6 cm; Wt 104.5 kg
[~2020-12-15 23:55] MED LIST changes: +ACET325T9 PO; +ALBU2.5V8 NEB; +BACL10TA PO; +CLOB15CR TP; +CROM26SP NS; +DOCU-153 PO; +GLYB2.5T2 PO; +GUAI100L12 PO; +IPRA3AMP29 NEB; +IPRA4AER INH; +LEVO112T2 PO; +MAG30ORA2 PO; +OXYC10TA PO; +OXYC20TA34 PO
[2020-12-16] MEDS ORDERED: DEXAMETHASONE SOD PHOS 20 MG/5 ML VIAL. IM ONE (02:00)
[2020-12-16] MEDS ORDERED: IPRATRPIUM/ALBUTEROL 0.5/2.5MG 3 ML NEBU. NEB ONE (02:00)
--- NOTE | 2020-12-16 02:29 | PHYS DOC ---
Past Medical History Past Medical History: Arthritis, Asthma, COPD, Fibromyalgia, Hypertension, Hypothyroid Additional Past Medical Histor: Thyroid disease, SLEEP APNEA, ARTHRITIS, fibromyalgia Past Surgical History: Hysterectomy, Tonsillectomy Smoking Status: Never Smoker Alcohol Use: None Drug Use: None General Adult EDM: Chief Complaint: SHORTNESS OF BREATH HPI: HPI: Patient is a 65 year old [f__sex] who presents with [] Review of Systems: Review of Systems: Constitutional: Denies fever or chills Eyes: Denies redness or eye pain HENT: Denies nasal congestion or sore throat Respiratory: Denies cough or shortness of breath Cardiovascular: Denies chest pain or palpitations GI: Denies abdominal pain, nausea, or vomiting : Denies dysuria or hematuria Musculoskeletal: Denies back pain or joint pain Integument: Denies rash or skin lesions Neurologic: Denies headache, focal weakness or sensory changes Complete systems were reviewed and found to be within normal limits, except as documented in this note. Heart Score: C/O Chest Pain: N/A Current Medications: Current Medications Medications (Trade) Dose Ordered Sig/Smooth Start Time Stop Time Status Last Admin Dose Admin Albuterol/ Ipratropium (Duoneb) 3 ml 1X ONCE 12/16/20 02:00 12/16/20 02:01 DC 12/16/20 01:58 3 ML Dexamethasone Sodium Phosphate (Decadron) 10 mg 1X ONCE 12/16/20 02:00 12/16/20 02:01 DC 12/16/20 02:05 10 MG Allergies: Allergies: Allergies Coded Allergies Type Severity Reaction Last Updated Verified gadopentetate dimeglumine Allergy Severe Anaphylaxis 07/09/14 Yes levofloxacin Allergy Severe Hives 11/09/15 Yes acetaminophen Allergy Intermediate Itching 12/28/17 Yes adhesive Allergy Intermediate Rash 07/09/14 Yes hydrocodone Allergy Intermediate Itching 12/28/17 Yes Sulfa (Sulfonamide Antibiotics) Adverse Reaction Intermediate ABDOMINAL PAIN 07/15/14 Yes diazepam Adverse Reaction Intermediate "MAKES ME CRAZY" 07/15/14 Yes procaine Adverse Reaction Intermediate Nausea and Vomiting 07/15/14 Yes doxycycline Adverse Reaction Mild Nausea and Vomiting 02/16/16 Yes Uncoded Allergies Type Severity Reaction Last Updated Verified "SCENTS" Allergy Severe 03/13/18 Physical Exam: PE: Constitutional: Well developed, well nourished, no acute distress, non-toxic appearance HENT: Normocephalic, atraumatic Eyes: PERRL, EOMI, conjunctiva normal, no discharge Neck: Normal range of motion, no tenderness, supple Lungs & Thorax: No respiratory distress, equal chest rise and fall Abdomen: Soft, no tenderness Skin: Warm, dry, no erythema, no rash Back: No tenderness, no CVA tenderness Extremities: No tenderness, ROM intact, no edema Neurologic: Alert and oriented X 3, normal motor function, normal sensory function, no focal deficits noted Psychologic: Affect normal, judgment normal Current Patient Data: Vital Signs: Vital Signs Date Time Temp Pulse Resp B/P (MAP) Pulse Ox O2 Delivery O2 Flow Rate FiO2 12/16/20 01:13 82 114/58 (76) 90 Room Air 12/16/20 00:00 98.3 24 98.3 EKG: EKG: @0037 NSR at 77bpm, NO ST elevation, QRS 98ms, QT/QTc 380/432ms Radiology/Procedures: Radiology/Procedures: [] Course & Med Decision Making: Course & Med Decision Making Pertinent Labs and Imaging studies reviewed. (See chart for details) [] Dragon Disclaimer: Dragon Disclaimer: This electronic medical record was generated, in whole or in part, using a voice recognition dictation system. Departure Departure Impression: Primary Impression: COPD exacerbation Disposition: 01 DC HOME SELF CARE/HOMELESS Condition: IMPROVED Referrals: DAISY JACKSON MD (PCP) Patient Instructions: Chronic Obstructive Pulmonary Disease Exacerbation, [id number] Scripts Prednisone (PREDNISONE) 20 Mg Tablet 2 TAB PO DAILY, #8 TAB Start this prescription tomorrow, Thursday12/17/20 Prov: PIO CHAN DO 12/16/20 Ipratropium/Albuterol Sulfate (DUONEB 0.5-3(2.5) MG/3 ML) 3 Ml Ampul.neb 3 ML NEB Q4-6HRS PRN for WHEEZING, #30 EACH Prov: PIO CHAN DO 12/16/20 PIO CHAN DO Dec 16, 2020 02:29
--- NOTE | 2020-12-16 02:58 | RAD ---
XR CHEST 1V Clinical History: Reason: cough, wheezing / Spl. Instructions: / History: Technique: AP view of the chest was obtained at 12/16/2020 1:59 AM. Comparison: None. Findings: The cardiomediastinal silhouette is normal. The pulmonary vasculature is normal. The lungs and pleura l margins are clear. Impression: No evidence of an acute cardiopulmonary process. Electronically signed by: Calixto Sierra III, MD (12/16/2020 2:56 AM) [facility]
[2020-12-16] MEDS ORDERED: PRED20TA PO (03:28)
[2020-12-16] MEDS ORDERED: IPRA3AMP29 NEB (03:28)
[2020-12-16 03:34] VITALS: BP 131/65
--- NOTE | 2020-12-17 07:27 | EKG ---
[facility] [address] [place] [address] Test Date: 2020-12-16 Test Time: 00:37:28 Pat Name: JAMARCUS HOLDEN Department: Room: Gender: F Steel Inspector: : [id number] Requested By: PIO CHAN Order Number: [id number] Reading MD: Measurements Intervals [place] Rate: 77 P: 48 MO: 156 QRS: -8 QRSD: 98 T: 55 QT: 380 QTc: 432 Interpretive Statements SINUS RHYTHM LEFTWARD AXIS OTHERWISE NORMAL ECG RI6.01 No previous ECG available for comparison
== END 2020-12-16 03:40 | disposition home or self-care (01) ==
LOC: ER 23:55
DX: J44.1 Chronic obstructive pulmonary disease with (acute) exacerbation (principal); M19.90 Unspecified osteoarthritis, unspecified site; M79.7 Fibromyalgia; I10 Essential (primary) hypertension; E03.9 Hypothyroidism, unspecified; Z90.710 Acquired absence of both cervix and uterus; Z98.890 Other specified postprocedural states; Z90.89 Acquired absence of other organs; Z88.5 Allergy status to narcotic agent; Z88.2 Allergy status to sulfonamides; Z88.8 Allergy status to other drugs, medicaments and biological substances; Z88.1 Allergy status to other antibiotic agents
CPT/HCPCS: 71045; 94640; 96372; 99285; J1100; 93005

== ENCOUNTER 2021-01-06 11:03 | Observation (INO) | payer MEDICARE ==
[~2021-01-06] VITALS: Ht 167.6 cm; Wt 103.3 kg
[2021-01-06] MEDS ORDERED: ALBUTEROL SULFATE 2.5 MG/3 ML NEBU. CONT NEB ONE (11:15)
[2021-01-06] MEDS ORDERED: methylPREDNISolone SOD SUCC PF 125 MG/2 ML VIAL. IV ONE (11:15)
[2021-01-06] MEDS ORDERED: IPRATRPIUM/ALBUTEROL 0.5/2.5MG 3 ML NEBU. NEB ONE (11:30)
--- NOTE | 2021-01-06 11:57 | PHYS DOC ---
Past Medical History Past Medical History: Arthritis, Asthma, Bronchitis, COPD, Fibromyalgia, Hypertension, Hypothyroid Additional Past Medical Histor: Thyroid disease, SLEEP APNEA, ARTHRITIS, fibromyalgia Past Surgical History: Hysterectomy, Tonsillectomy Smoking Status: Never Smoker Alcohol Use: None Drug Use: None General Adult EDM: Chief Complaint: ASTHMA HPI: HPI: Patient is a 65 year old female who presents with last night began having increased shortness of breath. She has been taking nebulizers and albuterol treatments at home. They are not helping. Patient has auditory wheezing upon arrival. She is 96% on room air but 33 respirations. She is speaking in 1-2 word sentences. She has chest tightness but no chest pain. Denies fever, nausea, vomiting, abdominal pain, syncope, dizziness, headache, vision change, numbness or tingling. She has a history of sleep apnea, arthritis, hysterectomy, tonsillectomy, fibromyalgia, hypertension, hypothyroidism, arthritis, COPD, asthma. Review of Systems: Review of Systems: Constitutional: Denies fever or chills. [] Eyes: Denies change in visual acuity. [] HENT: Denies nasal congestion or sore throat. [] Respiratory: Denies cough or +shortness of breath. [] Cardiovascular: + chest tightness or denies edema. [] GI: Denies abdominal pain, nausea, vomiting, bloody stools or diarrhea. [] : Denies dysuria. [] Musculoskeletal: Denies back pain or joint pain. [] Integument: Denies rash. [] Neurologic: Denies headache, focal weakness or sensory changes. [] Endocrine: Denies polyuria or polydipsia. [] Lymphatic: Denies swollen glands. [] Psychiatric: Denies depression or anxiety. [] Heart Score: C/O Chest Pain: Yes HEART Score for Chest Pain: HEART Score for Chest Pain Response (Comments) Value History Slighlty/Non-Suspicious 0 ECG Nonspecific Repolarizatio 1 Age > 65 2 Risk Factors 1 or 2 Risk Factors 1 Troponin < Normal Limit 0 Total 4 Risk Factors: Risk Factors: DM, Current or recent (<one month) smoker, HTN, HLP, family history of CAD, obesity. Risk Scores: Score 0 - 3: 2.5% MACE over next 6 weeks - Discharge Home Score 4 - 6: 20.3% MACE over next 6 weeks - Admit for Clinical Observation Score 7 - 10: 72.7% MACE over next 6 weeks - Early Invasive Strategies Current Medications: Current Medications Medications (Trade) Dose Ordered Sig/Smooth Start Time Stop Time Status Last Admin Dose Admin Albuterol Sulfate (Ventolin Neb Soln) 10 mg 1X ONCE 01/06/21 11:15 01/06/21 11:18 DC 01/06/21 11:27 10 MG Albuterol/ Ipratropium (Duoneb) 3 ml 1X ONCE 01/06/21 11:30 01/06/21 11:31 DC 01/06/21 11:23 3 ML Methylprednisolone Sodium Succinate (SOLU-Medrol 125MG VIAL) 125 mg 1X ONCE 01/06/21 11:15 01/06/21 11:18 DC 01/06/21 11:43 125 MG Allergies: Allergies: Allergies Coded Allergies Type Severity Reaction Last Updated Verified gadopentetate dimeglumine Allergy Severe Anaphylaxis 07/09/14 Yes levofloxacin Allergy Severe Hives 11/09/15 Yes acetaminophen Allergy Intermediate Itching 12/28/17 Yes adhesive Allergy Intermediate Rash 07/09/14 Yes hydrocodone Allergy Intermediate Itching 12/28/17 Yes Sulfa (Sulfonamide Antibiotics) Adverse Reaction Intermediate ABDOMINAL PAIN 07/15/14 Yes diazepam Adverse Reaction Intermediate "MAKES ME CRAZY" 07/15/14 Yes procaine Adverse Reaction Intermediate Nausea and Vomiting 07/15/14 Yes doxycycline Adverse Reaction Mild Nausea and Vomiting 02/16/16 Yes Uncoded Allergies Type Severity Reaction Last Updated Verified "SCENTS" Allergy Severe 03/13/18 Physical Exam: PE: Constitutional: Well developed, well nourished, no acute distress, non-toxic appearance. [] HENT: Normocephalic, atraumatic, bilateral external ears normal, oropharynx moist, no oral exudates, nose normal. [] Eyes: PERRLA, EOMI, conjunctiva normal, no discharge. [] Neck: Normal range of motion, no tenderness, supple, no stridor. [] Cardiovascular:Heart rate regular rhythm, no murmur [] Lungs & Thorax: Bilateral upper breath sounds inspiratory and expiratory wheezing and lower diminished to auscultation [] Abdomen: Bowel sounds normal, soft, no tenderness, no masses, no pulsatile masses. [] Skin: Warm, dry, no erythema, no rash. [] Back: No tenderness, no CVA tenderness. [] Extremities: No tenderness, no cyanosis, no clubbing, ROM intact, no edema. [] Neurologic: Alert and oriented X 3, normal motor function, normal sensory function, no focal deficits noted. [] Psychologic: Affect normal, judgement normal, mood normal. [] Current Patient Data: Vital Signs: Vital Signs Date Time Temp Pulse Resp B/P (MAP) Pulse Ox O2 Delivery O2 Flow Rate FiO2 01/06/21 11:31 Room Air EKG: EK and read by Dr. Barrientos as sinus rhythm and no STEMI. Radiology/Procedures: Radiology/Procedures: [] Impression: [facility] [address] [place] [address] IMAGING REPORT Signed PATIENT: JAMARCUS HOLDEN ACCOUNT: [id number] : 1955 LOCATION: ER AGE: 65 SEX: F EXAM STATUS: REG ER ORD. PHYSICIAN: IVON MOJICA APRN REASON: SOA, COPD PROCEDURE: PORTABLE CHEST 1V EXAM: AP View of the chest DATE: 01/06/2021 11:26 AM INDICATION: Reason: SOA, COPD / Spl. Instructions: / History: COMPARISON: 12/16/2020 09/08/2020 FINDINGS: The heart is not enlarged. Aorta is tortuous with atherosclerotic calcifications. Patchy bibasilar opacities likely atelectasis. No pleural effusion or pneumothorax. AC joint degenerative changes are seen. IMPRESSION: Patchy bibasilar opacities likely atelectasis or developing consolidation. Electronically signed by: Jevon Harrell MD (01/06/2021 12:17 PM) [facility] DICTATED and SIGNED BY: JEVON HARRELL MD DATE: 01/06/21 [id number] 0 Course & Med Decision Making: Course & Med Decision Making Pertinent Labs and Imaging studies reviewed. (See chart for details) See HPI. Alert and oriented x4. Unable to ambulate on the knee because she is so shortness of breath. Speaks in 1-2 word sentences. Skin pink warm and dry. Auditory inspiratory and expiratory wheezing and lower lung lobes are diminished. Afebrile. Chest x-ray shows opacities. Patient is started on Zosyn antibiotic. With reassessment patient is able to speak in full clear sentences. She is moving air much better. Vital signs are within normal range. She states she is feeling better. [] [place] Disclaimer: Dragon Disclaimer: This electronic medical record was generated, in whole or in part, using a voice recognition dictation system. Departure Departure Impression: Primary Impression: COPD exacerbation Additional Impression: Pneumonia Qualified Codes: J18.9 - Pneumonia, unspecified organism Disposition: ADMITTED INPATIENT Admitting Physician: LIVIA Condition: STABLE Referrals: DAISY JACKSON MD (PCP) IVON MOJICA [employer] January 06, 2021 11:57
[2021-01-06 12:01] LABS: CALCIUM 8.9 mg/dL (8.5-10.1); GFR 55.5; POTASSIUM 3.7 mmol/L (3.5-5.1)
[2021-01-06 12:03] LABS: BASO # 0.1 x10^3/uL (0.0-0.2); BASO % 2 % (0-3); EOS # 0.7 x10^3/uL (0.0-0.7); EOS % 11 % (0-3); HEMATOCRIT 33.9 % (36.0-47.0); HEMOGLOBIN 11.2 g/dL (12.0-15.5); LYMPH # 1.7 x10^3/uL (1.0-4.8); LYMPH % 27 % (24-48); MEAN CORPUSCULAR HEMOGLOBIN 27 pg (25-35); MEAN CORPUSCULAR HGB CONC 33 g/dL (31-37); MEAN CORPUSCULAR VOLUME 82 fL (79-100); MONO # 0.4 x10^3/uL (0.0-1.1); MONO % 7 % (0-9); NEUT # 3.5 x10^3/uL (1.8-7.7); NEUT % 54 % (31-73); PLATELET COUNT 344 x10^3/uL (140-400); RED BLOOD COUNT 4.14 x10^6/uL (3.50-5.40); RED CELL DISTRIBUTION WIDTH 15.3 % (11.5-14.5); WHITE BLOOD COUNT 6.5 x10^3/uL (4.0-11.0)
[2021-01-06 12:07] LABS: ALBUMIN 3.5 g/dL (3.4-5.0); ALBUMIN/GLOBULIN RATIO 1.1 (1.0-1.7); TOTAL BILIRUBIN 0.6 mg/dL (0.2-1.0); TOTAL PROTEIN 6.6 g/dL (6.4-8.2)
--- NOTE | 2021-01-06 12:19 | RAD ---
EXAM: AP View of the chest DATE: 01/06/2021 11:26 AM INDICATION: Reason: SOA, COPD / Spl. Instructions: / History: COMPARISON: 12/16/2020 09/08/2020 FINDINGS: The heart is not enlarged. Aorta is tortuous with atherosclerotic calcifications. Patchy bibasilar opacities likely atelectasis. No pleural effusion or pneumothorax. AC joint degenerative changes are seen. IMPRESSION: Patchy bibasilar opacities likely atelectasis or developing consolidation. Electronically signed by: Jevon Randle MD (01/06/2021 12:17 PM) [facility]
[2021-01-06] MEDS ORDERED: PIPERACILLIN/TAZOBACTAM 3.375 GM in IV NORMAL SALINE 50ML 50 ML IV ONE (12:30)
--- NOTE | 2021-01-06 13:16 | PDOC1 ---
History and Physical Date of Admission Date of Admission DATE: 01/06/21 TIME: 13:16 Identification/Chief Complaint Chief Complaint cough soa, TROUBLE BREATING, LABORED RESPIRATIONS History of Present Illness History of Present Illness Seen in ER WITH increased shortness of breath. x 3 days, cough, wheezing. stopped smoking in 2006 She has been taking nebulizers and albuterol treatments at home. not helping. has auditory wheezing upon arrival. She is 96% on room air but 33 respirations.was speaking in 1-2 word sentences. She has chest tightness but no chest pain. cough productive of small amounts of white phlegm. X 3 DAYS Denies fever, nausea, vomiting, abdominal pain, syncope, dizziness, headache, vision change, numbness or tingling. She has a history of sleep apnea, arthritis, hysterectomy, tonsillectomy, fibromyalgia, hypertension, hypothyroidism, arthritis, COPD, asthma. CXR CONCERNING for early pneumonia Past Medical History Cardiovascular: CAD, HTN Pulmonary: Asthma, COPD, Other GI: GERD Psych: Anxiety, Depression Musculoskeletal: Osteoarthritis Rheumatologic: Fibromyalgia Infectious disease: No pertinent hx Endocrine: Hypothyroidism Past Surgical History Past Surgical History: Tonsillectomy, Hysterectomy Family History Family History: Chronic Bronchitis, Hypertension Social History Smoke: Quit ALCOHOL: none Drugs: None Current Problem List Problem List Problems Medical Problems: (1) COPD exacerbation Status: Acute (2) Pneumonia Status: Acute Current Medications Current Medications Current Medications Methylprednisolone Sodium Succinate (SOLU-Medrol 125MG VIAL) 125 mg 1X ONCE IV Last administered on 01/06/21at 11:43; Start 01/06/21 at 11:15; Stop 01/06/21 at 11:18; Status DC Albuterol Sulfate (Ventolin Neb Soln) 10 mg 1X ONCE CONT NEB Last administered on 01/06/21at 11:27; Start 01/06/21 at 11:15; Stop 01/06/21 at 11:18; Status DC Albuterol/ Ipratropium (Duoneb) 3 ml 1X ONCE NEB Last administered on 01/06/21at 11:23; Start 01/06/21 at 11:30; Stop 01/06/21 at 11:31; Status DC Piperacillin Sod/ Tazobactam Sod 3.375 gm/Sodium Chloride 50 ml @ 100 mls/hr 1X ONCE IV ; Start 01/06/21 at 12:30; Stop 01/06/21 at 12:59; Status DC Active Scripts Active Prednisone 20 Mg Tablet 2 Tab PO DAILY Start this prescription tomorrow, Thursday12/17/20 Duoneb 0.5-3(2.5) Mg/3 Ml (Albuterol/Ipratropium) 3 Ml Ampul.neb 3 Ml NEB Q4- 6HRS PRN Prednisone 20 Mg Tablet 1.5 Tab PO DAILY 5 Days Prednisone 20 Mg Tablet 40 Mg PO DAILY 5 Days Dok (Docusate Sodium) 100 Mg Capsule 100 Mg PO PRN BID PRN 30 Days Mag-Al Plus Xs Suspension (Mag Hydrox/Al Hydrox/Simeth) 30 Ml Oral.susp 30 Ml PO PRN DAILY PRN 14 Days Guaifenesin 100 Mg/5 Ml Liquid 200 Mg PO PRN Q4HRS PRN 14 Days Cromolyn Sodium 26 Ml Avon.pump 1 Avon NS TID 30 Days Tylenol (Acetaminophen) 325 Mg Tablet 650 Mg PO PRN Q4HRS PRN 14 Days Proair Hfa (Albuterol Sulfate) 8.5 Gm Hfa.aer.ad 2.5 Mg NEB PRN Q4HRS PRN 30 Days Tessalon Perle (Benzonatate) 100 Mg Capsule 1 Cap PO TID Reported Clobetasol Propionate 15 Gm Cream..g. 1 Chanel TP Q2HR PRN Synthroid (Levothyroxine Sodium) 112 Mcg Tablet 1 Tab PO DAILY Oxycodone Hcl Immed.release (Oxycodone Hcl) 10 Mg Tablet 1 Tab PO Q6HRS PRN Duoneb 0.5-3(2.5) Mg/3 Ml (Albuterol/Ipratropium) 3 Ml Ampul.neb 1 Puff NEB Q4HRS PRN Combivent Respimat Inhal (Ipratropium/Albuterol Sulfate) 4 Gm Aer.w.adap 2 Inh INH Q4-6HRS PRN Baclofen 10 Mg Tablet 1 Tab PO TID PRN Glyburide 2.5 Mg Tablet 1 Tab PO DAILY Atorvastatin Calcium 20 Mg Tablet 2 Tab PO HS 30 Days Lisinopril 5 Mg Tablet 1 Tab PO DAILY 30 Days Aspirin Ec (Aspirin) 81 Mg Tablet.dr 1 Tab PO DAILY Daliresp (Roflumilast) 500 Mcg Tablet 1 Tab PO DAILY Ambien (Zolpidem Tartrate) 5 Mg Tablet 1 Tab PO PRN QHS PRN Fiber (Psyllium Husk) 0.52 Gm Capsule 0.52 Gm PO PRN DAILY PRN Vitamin D (Cholecalciferol (Vitamin D3)) 2,000 Unit Capsule 5,000 Unit PO DAILY Alprazolam 1 Mg Tablet 1 Tab PO TID PRN Cetirizine Hcl 10 Mg Tablet 10 Mg PO DAILY Fibercon (Calcium Polycarbophil) 625 Mg Tablet 625 Mg PO PRN DAILY Protonix Packet (Pantoprazole Sodium) 40 Mg Granpkt.dr 40 Mg PO DAILY08 Singulair Tablet (Montelukast Sodium) 10 Mg Tablet 10 Mg PO DAILY Benadryl (Diphenhydramine Hcl) 25 Mg Capsule 25-50 Mg PO PRN Q4HRS Cromolyn Sodium 20 Mg/2 Ml Ampul.neb 20 Mg IH PRN Q4HRS Symbicort 160-4.5 Mcg Inhaler (Budesonide/Formoterol Fumarate) 10.2 Gm Hfa.aer.ad 10.2 Gm IH BID Duoneb 0.5 Mg-3 Mg/3 Ml Soln (Ipratropium/Albuterol Sulfate) 3 Ml Ampul.neb 3 Ml IH Q4HRS Allergies Allergies: Coded Allergies: gadopentetate dimeglumine (Verified Allergy, Severe, Anaphylaxis, 07/09/14) levofloxacin (Verified Allergy, Severe, Hives, 11/09/15) acetaminophen (Verified Allergy, Intermediate, Itching, 12/28/17) Patient has received hydrocodone/APAP and can tolerate Crocker brand the best. Other rotogravure press operator products cause her to itch based on the excipients that are used. Even the brand name products cause her to have itching. adhesive (Verified Allergy, Intermediate, Rash, 07/09/14) hydrocodone (Verified Allergy, Intermediate, Itching, 12/28/17) Patient has received hydrocodone/APAP and can tolerate Crocker brand the best. Other rotogravure press operator products cause her to itch based on the excipients that are used. Even the brand name products cause her to have itching. Sulfa (Sulfonamide Antibiotics) (Verified Adverse Reaction, Intermediate, ABDOMINAL PAIN, 07/15/14) diazepam (Verified Adverse Reaction, Intermediate, "MAKES ME CRAZY", 07/15/14) procaine (Verified Adverse Reaction, Intermediate, Nausea and Vomiting, 07/15/14) doxycycline (Verified Adverse Reaction, Mild, Nausea and Vomiting, 02/16/16) Uncoded Allergies: "SCENTS" (Allergy, Severe, 03/13/18) ROS General: YES: Chills, Fatigue, Malaise; No: Night Sweats, Appetite, Other PSYCHOLOGICAL ROS: No: Anxiety, Behavioral Disorder, Concentration difficultie, Decreased libido, Depression, Disorientation, Hallucinations, Hostility, Irritablity, Memory difficulties, Mood Swings, Obsessive thoughts, Physical abuse, Sexual abuse, Sleep disturbances, Suicidal ideation, Other Eyes: No Blurry vision, No Decreased vision, No Double vision, No Dry eyes, No Excessive tearing, No Eye Pain, No Itchy Eyes, No Loss of vision, No Photophobia, No Scotomata, No Uses contacts, No Uses glasses, No Other HEENT: No: Heacaches, Visual Changes, Hearing change, Nasal congestion, Nasal discharge, Oral lesions, Sinus pain, Sore Throat, Epistaxis, Sneezing, Snoring, Tinnitus, Vertigo, Vocal changes, Other ALLERGY AND IMMUNOLOGY: YES: Hives; No: Insect Bite Sensitivity, Itchy/Watery Eyes, Nasal Congestion, Post Nasal Drip, Seasonal Allergies, Other Hematological and Lymphatic: No: Bleeding Problems, Blood Clots, Blood Transfusions, Brusing, Night Sweats, Pallor, Swollen Lymph Nodes, Other ENDOCRINE: No: Breast Changes, Galactorrhea, Hair Pattern Changes, Hot Flashes, Malaise/lethargy, Mood Swings, Palpitations, Polydipsia/polyuria, Skin Changes, Temperature Intolerance, Unexpected Weight Changes, Other Breast: No New/Changing Breast Lumps, No Nipple changes, No Nipple discharge, No Other Respiratory: YES: Cough, Shortness of breath, SOB with excertion, Sputum Changes, Tachypnea, Wheezing Cardiovascular: No Chest Pain, No Palpitations, No Orthopnea, No Paroxysmal Noc. Dyspnea, No Edema, No Lt Headedness, No Other Gastrointestinal: No Nausea, No Vomiting, No Abdominal Pain, No Diarrhea, No Constipation, No Melena, No Hematochezia, No Other Genitourinary: No Dysuria, No Frequency, No Incontinence, No Hematuria, No Retention, No Discharge, No Urgency, No Pain, No Flank Pain, No Other, No , No , No , No , No , No , No Musculoskeletal: Yes Joint Stiffness; No Gait Disturbance, No Joint Pain, No Joint Swelling, No Muscle Pain, No Muscular Weakness, No Pain In:, No Swelling In:, No Other Neurological: No Behavorial Changes, No Bowel/Bladder ControlChng, No Confusion, No Dizziness, No Gait Disturbance, No Headaches, No Impaired Coord/balance, No Memory Loss, No Numbness/Tingling, No Seizures, No Speech Problems, No Tremors, No Visual Changes, No Weakness, No Other Skin: Yes Dry Skin; No Eczema, No Hair Changes, No Lumps, No Mole Changes, No Mottling, No Nail Changes, No Pruritus, No Rash, No Skin Lesion Changes, No Other, No Acne Physical Exam General: Alert, Oriented X3, Cooperative, No acute distress, mild distress HEENT: Atraumatic, PERRLA, EOMI, Mucous membr. moist/pink Lungs: Other (MODERATE EXP WHEEZING ALL LUNG BROWN) Heart: RRR Breasts: Not examined Abdomen: Normal bowel sounds, Soft Rectal Exam: not examined, deferred PELVIC: Examination not indicated Extremities: No cyanosis Neuro: Normal speech, Strength at 5/5 X4 ext, Sensation intact, Cranial nerves 3-12 NL Psych/Mental Status: Mental status NL, Mood NL Vitals Vitals Vital Signs Date Time Temp Pulse Resp B/P (MAP) Pulse Ox O2 Delivery O2 Flow Rate FiO2 01/06/21 11:31 Room Air 01/06/21 11:08 98.4 113 34 140/77 (98) 96 98.4 Labs Labs CLOSURE: At case completion the right radial sheath was removed and a Terumo radial band was applied with 13 ml of air. COMPLICATIONS: The patient tolerated the procedure well and there were no immediate complications. FINDINGS: HEMODYNAMICS: LVEDP 25 mm Hg No gradient on LV to aortic pullback. AO: 160/80 LEFT VENTRICULOGRAM: Deferred due to known normal EF by echo. CORONARY ANGIOGRAPHY: LM is a very short large caliber vessel with normal angiographic appearance. LAD is a large caliber vessel with mild luminal irregularities. Ramus is a moderate caliber vessel with normal angiographic apeparance. LCx is a moderate caliber co-dominant vessel with a mid 50%-70% stenosis. OM1 is a moderate caliber vessel with normal angiographic appearance. LPL1 is a small caliber vessel with normal angiographic appearance. RCA is a large caliber dominant vessel with mild luminal irregularities. RPDA is a moderate caliber vessel with normal angiographic appearance. INTERVENTIONAL TECHNIQUE: iFR of the LCx Heparin was used for anticoagulation. Through a 6Fr EBU 3.5 guide catheter, a 0.014'' iFR pressure wire was advanced to the distal LPL after appropriate normalization in the aorta and NTG administration. The iFR value was 0.95. Further intervention was deferred. Final angiography demonstrated no evidence of guide or wire related complications. Conclusion 1. Acute on chronic diastolic HF with LVEDP of 25 mm Hg. 2. One vessel CAD involving the LCx. 3. Negative iFR of the LCx at 0.95 Recommendations 1. Aggressive medical therapy to include statins, exercise and diet changes with strict BP control. 2. Will initiate low dose diuretics. Signed by : Shakeel Kay, Electronically Approved : 10/25/2019 13:19:54 Laboratory Tests Test 01/06/21 11:40 White Blood Count 6.5 x10^3/uL (4.0-11.0) Red Blood Count 4.14 x10^6/uL (3.50-5.40) Hemoglobin 11.2 g/dL (12.0-15.5) Hematocrit 33.9 % (36.0-47.0) Mean Corpuscular Volume 82 fL (79-100) Mean Corpuscular Hemoglobin 27 pg (25-35) Mean Corpuscular Hemoglobin Concent 33 g/dL (31-37) Red Cell Distribution Width 15.3 % (11.5-14.5) Platelet Count 344 x10^3/uL (140-400) Neutrophils (%) (Auto) 54 % (31-73) Lymphocytes (%) (Auto) 27 % (24-48) Monocytes (%) (Auto) 7 % (0-9) Eosinophils (%) (Auto) 11 % (0-3) Basophils (%) (Auto) 2 % (0-3) Neutrophils # (Auto) 3.5 x10^3/uL (1.8-7.7) Lymphocytes # (Auto) 1.7 x10^3/uL (1.0-4.8) Monocytes # (Auto) 0.4 x10^3/uL (0.0-1.1) Eosinophils # (Auto) 0.7 x10^3/uL (0.0-0.7) Basophils # (Auto) 0.1 x10^3/uL (0.0-0.2) Sodium Level 146 mmol/L (136-145) Potassium Level 3.7 mmol/L (3.5-5.1) Chloride Level 108 mmol/L (98-107) Carbon Dioxide Level 26 mmol/L (21-32) Anion Gap 12 (6-14) Blood Urea Nitrogen 14 mg/dL (7-20) Creatinine 1.0 mg/dL (0.6-1.0) Estimated GFR (Cockcroft-Gault) 55.5 BUN/Creatinine Ratio 14 (6-20) Glucose Level 97 mg/dL (70-99) Lactic Acid Level 1.1 mmol/L (0.4-2.0) Calcium Level 8.9 mg/dL (8.5-10.1) Total Bilirubin 0.6 mg/dL (0.2-1.0) Aspartate Amino Transf (AST/SGOT) 17 U/L (15-37) Alanine Aminotransferase (ALT/SGPT) 29 U/L (14-59) Alkaline Phosphatase 99 U/L (46-116) Troponin I Quantitative < 0.017 ng/mL (0.000-0.055) Total Protein 6.6 g/dL (6.4-8.2) Albumin 3.5 g/dL (3.4-5.0) Albumin/Globulin Ratio 1.1 (1.0-1.7) Laboratory Tests Test 01/06/21 11:40 White Blood Count 6.5 x10^3/uL (4.0-11.0) Red Blood Count 4.14 x10^6/uL (3.50-5.40) Hemoglobin 11.2 g/dL (12.0-15.5) Hematocrit 33.9 % (36.0-47.0) Mean Corpuscular Volume 82 fL (79-100) Mean Corpuscular Hemoglobin 27 pg (25-35) Mean Corpuscular Hemoglobin Concent 33 g/dL (31-37) Red Cell Distribution Width 15.3 % (11.5-14.5) Platelet Count 344 x10^3/uL (140-400) Neutrophils (%) (Auto) 54 % (31-73) Lymphocytes (%) (Auto) 27 % (24-48) Monocytes (%) (Auto) 7 % (0-9) Eosinophils (%) (Auto) 11 % (0-3) Basophils (%) (Auto) 2 % (0-3) Neutrophils # (Auto) 3.5 x10^3/uL (1.8-7.7) Lymphocytes # (Auto) 1.7 x10^3/uL (1.0-4.8) Monocytes # (Auto) 0.4 x10^3/uL (0.0-1.1) Eosinophils # (Auto) 0.7 x10^3/uL (0.0-0.7) Basophils # (Auto) 0.1 x10^3/uL (0.0-0.2) Sodium Level 146 mmol/L (136-145) Potassium Level 3.7 mmol/L (3.5-5.1) Chloride Level 108 mmol/L (98-107) Carbon Dioxide Level 26 mmol/L (21-32) Anion Gap 12 (6-14) Blood Urea Nitrogen 14 mg/dL (7-20) Creatinine 1.0 mg/dL (0.6-1.0) Estimated GFR (Cockcroft-Gault) 55.5 BUN/Creatinine Ratio 14 (6-20) Glucose Level 97 mg/dL (70-99) Lactic Acid Level 1.1 mmol/L (0.4-2.0) Calcium Level 8.9 mg/dL (8.5-10.1) Total Bilirubin 0.6 mg/dL (0.2-1.0) Aspartate Amino Transf (AST/SGOT) 17 U/L (15-37) Alanine Aminotransferase (ALT/SGPT) 29 U/L (14-59) Alkaline Phosphatase 99 U/L (46-116) Troponin I Quantitative < 0.017 ng/mL (0.000-0.055) Total Protein 6.6 g/dL (6.4-8.2) Albumin 3.5 g/dL (3.4-5.0) Albumin/Globulin Ratio 1.1 (1.0-1.7) Images Images EXAM: AP View of the chest DATE: 01/06/2021 11:26 AM INDICATION: Reason: SOA, COPD / Spl. Instructions: / History: COMPARISON: 12/16/2020 09/08/2020 FINDINGS: The heart is not enlarged. Aorta is tortuous with atherosclerotic calcifications. Patchy bibasilar opacities likely atelectasis. No pleural effusion or pneumothorax. AC joint degenerative changes are seen. IMPRESSION: Patchy bibasilar opacities likely atelectasis or developing consolidation. Electronically signed by: Jevon Harrell MD (01/06/2021 12:17 PM) [facility] DICTATED and SIGNED BY: JEVON HARRELL MD DATE: 01/06/21 [id number] 0 VTE Prophylaxis Ordered VTE Prophylaxis Devices: Yes VTE Pharmacological Prophylaxi: Yes Assessment/Plan Assessment/Plan IMPRESSION Asthma exacerbation, ACUTE STATUS ASTHMATICUS MORBID OBESITY Acute respiratory failure Patchy bibasilar opacities likely atelectasis or developing consolidation. possible gram pos, gram neg chronic pain syndrome diabetes MORBID OBESITY hypothyroid on oral replacement COPD EXAC ACUTE allergy to perfumes and scents One vessel CAD involving the LCx. post stentL Cx is a moderate caliber co- dominant vessel with a mid 50%-70% stenosis. 2019 ADMITTED o2 support PRN pulm consult albuterol q 4 hrs prn dvt prophylaxis IV SOLUMEDROL TAPER GI PROPHYLAXIS ekg cardiology consult due to cad hx / dyspnea IV ZOSYN HOME MEDS D/W ER ESTIMATED LOS > 72 HRS DUE TO PNEUMONIA, COPD Justifications for Admission Other Justification ERICA HERNANDEZ MD January 06, 2021 13:16
[2021-01-06] MEDS ORDERED: oxyCODONE IR 5 MG TABLET PO ONE (13:45)
[2021-01-06 14:50] VITALS: BP 139/79
[2021-01-06] MEDS ORDERED: 0.9 % SODIUM CHLORIDE 10 ML DISP.SYRIN. IV PRN (15:00)
[2021-01-06] MEDS ORDERED: guaiFENesin ORAL 200 MG/10 ML LIQUID. PO PRN ×2 (15:00→15:15)
[2021-01-06] MEDS ORDERED: MAG HYDROX/ALUMINUM HYD/SIMETH 30 ML ORAL.SUSP PO PRN ×2 (15:00→15:15)
[2021-01-06] MEDS ORDERED: ONDANSETRON PF 4 MG/2 ML VIAL. IV PRN (15:00)
[2021-01-06] MEDS ORDERED: SODIUM PHOSPHATES 19/7GM 133 ML ENEMA. PR PRN (15:00)
[2021-01-06] MEDS ORDERED: LORazepam 0.5 MG TABLET PO PRN (15:00)
[2021-01-06] MEDS ORDERED: ACETAMINOPHEN 325 MG TABLET. PO PRN (15:00)
[2021-01-06] MEDS ORDERED: DOCUSATE SODIUM 100 MG CAPSULE. PO PRN ×2 (15:00→15:15)
[2021-01-06] MEDS ORDERED: PIP/TAZO PER PHARMACY MC PRN (15:00)
[2021-01-06] MEDS: IV NORMAL SALINE 1000ML BAG 1,000 ML IV SCH (15:00)
[2021-01-06] MEDS ORDERED: ZOLPIDEM 5 MG TABLET. PO PRN (15:15)
[2021-01-06] MEDS ORDERED: BACLOFEN 10 MG TABLET. PO PRN (15:15)
[2021-01-06] MEDS ORDERED: ALPRAZolam 1 MG TABLET PO PRN (15:15)
[2021-01-06] MEDS ORDERED: CALCIUM POLYCARBOPHIL 625 MG TABLET PO PRN (15:15)
[2021-01-06] MEDS ORDERED: CROMOLYN SODIUM IH SCH (15:15)
[2021-01-06] MEDS: IPRATRPIUM/ALBUTEROL 0.5/2.5MG 3 ML NEBU. NEB SCH ×2 (15:24→20:05)
[2021-01-06] MEDS ORDERED: PSYLLIUM HUSK (SUGAR FREE) 1 PKT PACKET PO PRN (15:30)
[2021-01-06] MEDS ORDERED: CLOBETASOL EMOLLIENT 0.05% TOPICAL CREAM 15GM TUBE. TP PRN (15:30)
[2021-01-06] MEDS ORDERED: IPRATRPIUM/ALBUTEROL 0.5/2.5MG 3 ML NEBU. IH SCH (16:00)
[2021-01-06] MEDS ORDERED: IPRATRPIUM/ALBUTEROL 0.5/2.5MG 3 ML NEBU. NEB SCH (18:00)
[2021-01-06] MEDS: IV 1/2 NORMAL SALINE 1,000 ML IV SCH (18:04)
[2021-01-06] MEDS: PIPERACILLIN/TAZOBACTAM 3.375 GM in IV NORMAL SALINE 50ML 50 ML IV SCH ×2 (18:05→23:24)
--- NOTE | 2021-01-06 19:39 | EKG ---
[facility] [address] [place] [address] Test Date: 2021-01-06 Test Time: 11:26:45 Pat Name: JAMARCUS HOLDEN Department: Room: Gender: F Bilingual Patient Support Caseworker: : 1955 Requested By: IVON MOJICA Order Number: [id number] Reading MD: Measurements Intervals [place] Rate: 91 P: 36 TN: 142 QRS: -30 QRSD: 94 T: 72 QT: 364 QTc: 449 Interpretive Statements SINUS RHYTHM ABNORMAL LEFT AXIS DEVIATION LEFT ANTERIOR FASCICULAR BLOCK T ABNORMALITY IN HIGH LATERAL LEADS ABNORMAL ECG RI6.01 No previous ECG available for comparison
[2021-01-06] MEDS: ATORVASTATIN CALCIUM 20 MG TABLET PO SCH (19:58)
[2021-01-06 19:59] VITALS: BP 107/64
[2021-01-06] MEDS: oxyCODONE IR 5 MG TABLET PO PRN (19:59)
[2021-01-06] MEDS: ENOXAPARIN 40 MG/0.4 ML SYRINGE. SQ SCH (19:59)
[2021-01-06] MEDS: BENZONATATE 100 MG CAPSULE. PO SCH (19:59)
[2021-01-06] MEDS: BUDESONIDE 0.5 MG/2 ML NEBU. NEB SCH (20:05)
[2021-01-06] MEDS: CROMOLYN 4% NASAL SPRAY 26ML BOTTLE. NS SCH (21:00)
[2021-01-06] MEDS ORDERED: NON FORMULARY ITEM (Budesonide/Formoterol Fumarate (Symbicort 160-4.5 Mcg Inhaler) 10.2 GM IH SCH (21:00)
[2021-01-06] MEDS: methylPREDNISolone SOD SUCC PF 125 MG/2 ML VIAL. IV SCH (23:24)
[2021-01-06 23:32] VITALS: BP 139/80
[2021-01-07 03:00] VITALS: BP 128/77
[2021-01-07 04:33] LABS: CALCIUM 8.9 mg/dL (8.5-10.1); GFR 55.5; POTASSIUM 4.2 mmol/L (3.5-5.1)
[2021-01-07] MEDS: ALBUTEROL SULFATE 2.5 MG/3 ML NEBU. NEB PRN ×3 (04:41→23:40)
[2021-01-07] MEDS: methylPREDNISolone SOD SUCC PF 125 MG/2 ML VIAL. IV SCH ×3 (06:15→21:46)
[2021-01-07] MEDS: LEVOTHYROXINE 112 MCG TABLET PO SCH (06:15)
[2021-01-07] MEDS: PIPERACILLIN/TAZOBACTAM 3.375 GM in IV NORMAL SALINE 50ML 50 ML IV SCH ×4 (06:15→23:39)
[2021-01-07] MEDS: IV NORMAL SALINE 1000ML BAG 1,000 ML IV SCH (06:16)
[2021-01-07] MEDS: IV 1/2 NORMAL SALINE 1,000 ML IV SCH ×2 (06:21→20:40)
[2021-01-07 07:00] VITALS: BP 166/96
[2021-01-07] MEDS: BUDESONIDE 0.5 MG/2 ML NEBU. NEB SCH ×2 (07:50→21:41)
[2021-01-07] MEDS: IPRATRPIUM/ALBUTEROL 0.5/2.5MG 3 ML NEBU. NEB SCH ×2 (07:50→13:04)
[2021-01-07] MEDS: glyBURIDE 5 MG TABLET PO SCH (08:34)
[2021-01-07] MEDS: ASPIRIN ENTERIC COATED 81 MG TABLET.DR. PO SCH (08:34)
[2021-01-07] MEDS: BENZONATATE 100 MG CAPSULE. PO SCH ×3 (08:34→21:44)
[2021-01-07] MEDS: ROFLUMILAST 500 MCG TABLET. PO SCH (08:34)
[2021-01-07] MEDS: PANTOPRAZOLE 40 MG TABLET.DR. PO SCH (08:35)
[2021-01-07] MEDS: LISINOPRIL 5 MG TABLET. PO SCH (08:35)
[2021-01-07] MEDS: CROMOLYN 4% NASAL SPRAY 26ML BOTTLE. NS SCH ×3 (08:35→21:00)
[2021-01-07] MEDS: CETIRIZINE HCL 10 MG TABLET. PO SCH (08:35)
[2021-01-07] MEDS: CHOLECALCIFEROL (VITAMIN D3) 5,000 UNIT CAPSULE PO SCH (08:35)
[2021-01-07] MEDS: MONTELUKAST SODIUM 10 MG TABLET. PO SCH (08:35)
[2021-01-07] MEDS: oxyCODONE IR 5 MG TABLET PO PRN ×2 (08:41→21:52)
--- NOTE | 2021-01-07 08:52 | PDOC ---
PROGRESS NOTES Date of Service: DATE: 01/07/21 TIME: 08:52 Chief Complaint Chief Complaint VTE Prophylaxis Ordered VTE Prophylaxis Devices: Yes VTE Pharmacological Prophylaxi: Yes Assessment/Plan Assessment/Plan IMPRESSION Asthma exacerbation, ACUTE STATUS ASTHMATICUS MORBID OBESITY Acute respiratory failure Patchy bibasilar opacities likely atelectasis or developing consolidation. possible gram pos, gram neg chronic pain syndrome diabetes MORBID OBESITY hypothyroid on oral replacement COPD EXAC ACUTE allergy to perfumes and scents One vessel CAD involving the LCx. post stentL Cx is a moderate caliber co- dominant vessel with a mid 50%-70% stenosis. 2019 ADMITTED o2 support PRN pulm consult albuterol q 4 hrs prn dvt prophylaxis IV SOLUMEDROL TAPER GI PROPHYLAXIS ekg cardiology consult due to cad hx / dyspnea IV ZOSYN HOME MEDS D/W ER 01-07 STILL WHEEZING, COUGH PRODUCTIVE D/W DR VUONG IN ROOM likely needs another day here ESTIMATED LOS > 72 HRS DUE TO PNEUMONIA, COPD Justifications for Admission Other Justification History of Present Illness History of Present Illness Identification/Chief Complaint Chief Complaint cough soa, TROUBLE BREATING, LABORED RESPIRATIONS History of Present Illness History of Present Illness Seen in ER WITH increased shortness of breath. x 3 days, cough, wheezing. stopped smoking in 2006 She has been taking nebulizers and albuterol treatments at home. not helping. has auditory wheezing upon arrival. She is 96% on room air but 33 respirations.was speaking in 1-2 word sentences. She has chest tightness but no chest pain. cough productive of small amounts of white phlegm. X 3 DAYS Denies fever, nausea, vomiting, abdominal pain, syncope, dizziness, headache, vision change, numbness or tingling. She has a history of sleep apnea, arthritis, hysterectomy, tonsillectomy, fibromyalgia, hypertension, hypothyroidism, arthritis, COPD, asthma. CXR CONCERNING for early pneumonia Past Medical History Cardiovascular: CAD, HTN Pulmonary: Asthma, COPD, Other GI: GERD Psych: Anxiety, Depression Musculoskeletal: Osteoarthritis Rheumatologic: Fibromyalgia Infectious disease: No pertinent hx Endocrine: Hypothyroidism Past Surgical History Past Surgical History: Tonsillectomy, Hysterectomy Family History Family History: Chronic Bronchitis, Hypertension Social History Smoke: Quit ALCOHOL: none Drugs: None Current Problem List Problem List Problems Medical Problems: (1) COPD exacerbation Status: Acute (2) Pneumonia Status: Acute Current Medications Current Medications Current Medications Methylprednisolone Sodium Succinate (SOLU-Medrol 125MG VIAL) 125 mg 1X ONCE IV Last administered on 01/06/21at 11:43; Start 01/06/21 at 11:15; Stop 01/06/21 at 11:18; Status DC Albuterol Sulfate (Ventolin Neb Soln) 10 mg 1X ONCE CONT NEB Last administered on 01/06/21at 11:27; Start 01/06/21 at 11:15; Stop 01/06/21 at 11:18; Status DC Albuterol/ Ipratropium (Duoneb) 3 ml 1X ONCE NEB Last administered on 01/06/21at 11:23; Start 01/06/21 at 11:30; Stop 01/06/21 at 11:31; Status DC Piperacillin Sod/ Tazobactam Sod 3.375 gm/Sodium Chloride 50 ml @ 100 mls/hr 1X ONCE IV ; Start 01/06/21 at 12:30; Stop 01/06/21 at 12:59; Status DC Active Scripts Active Prednisone 20 Mg Tablet 2 Tab PO DAILY Start this prescription tomorrow, Thursday12/17/20 Duoneb 0.5-3(2.5) Mg/3 Ml (Albuterol/Ipratropium) 3 Ml Ampul.neb 3 Ml NEB Q4- 6HRS PRN Prednisone 20 Mg Tablet 1.5 Tab PO DAILY 5 Days Prednisone 20 Mg Tablet 40 Mg PO DAILY 5 Days Dok (Docusate Sodium) 100 Mg Capsule 100 Mg PO PRN BID PRN 30 Days Mag-Al Plus Xs Suspension (Mag Hydrox/Al Hydrox/Simeth) 30 Ml Oral.susp 30 Ml PO PRN DAILY PRN 14 Days Guaifenesin 100 Mg/5 Ml Liquid 200 Mg PO PRN Q4HRS PRN 14 Days Cromolyn Sodium 26 Ml Dexter.pump 1 Dexter NS TID 30 Days Tylenol (Acetaminophen) 325 Mg Tablet 650 Mg PO PRN Q4HRS PRN 14 Days Proair Hfa (Albuterol Sulfate) 8.5 Gm Hfa.aer.ad 2.5 Mg NEB PRN Q4HRS PRN 30 Days Tessalon Perle (Benzonatate) 100 Mg Capsule 1 Cap PO TID Reported Clobetasol Propionate 15 Gm Cream..g. 1 Chanel TP Q2HR PRN Synthroid (Levothyroxine Sodium) 112 Mcg Tablet 1 Tab PO DAILY Oxycodone Hcl Immed.release (Oxycodone Hcl) 10 Mg Tablet 1 Tab PO Q6HRS PRN Duoneb 0.5-3(2.5) Mg/3 Ml (Albuterol/Ipratropium) 3 Ml Ampul.neb 1 Puff NEB Q4HRS PRN Combivent Respimat Inhal (Ipratropium/Albuterol Sulfate) 4 Gm Aer.w.adap 2 Inh INH Q4-6HRS PRN Baclofen 10 Mg Tablet 1 Tab PO TID PRN Glyburide 2.5 Mg Tablet 1 Tab PO DAILY Atorvastatin Calcium 20 Mg Tablet 2 Tab PO HS 30 Days Lisinopril 5 Mg Tablet 1 Tab PO DAILY 30 Days Aspirin Ec (Aspirin) 81 Mg Tablet. 1 Tab PO DAILY Daliresp (Roflumilast) 500 Mcg Tablet 1 Tab PO DAILY Ambien (Zolpidem Tartrate) 5 Mg Tablet 1 Tab PO PRN QHS PRN Fiber (Psyllium Husk) 0.52 Gm Capsule 0.52 Gm PO PRN DAILY PRN Vitamin D (Cholecalciferol (Vitamin D3)) 2,000 Unit Capsule 5,000 Unit PO DAILY Alprazolam 1 Mg Tablet 1 Tab PO TID PRN Cetirizine Hcl 10 Mg Tablet 10 Mg PO DAILY Fibercon (Calcium Polycarbophil) 625 Mg Tablet 625 Mg PO PRN DAILY Protonix Packet (Pantoprazole Sodium) 40 Mg 40 Mg PO DAILY08 Singulair Tablet (Montelukast Sodium) 10 Mg Tablet 10 Mg PO DAILY Benadryl (Diphenhydramine Hcl) 25 Mg Capsule 25-50 Mg PO PRN Q4HRS Cromolyn Sodium 20 Mg/2 Ml Ampul.neb 20 Mg IH PRN Q4HRS Symbicort 160-4.5 Mcg Inhaler (Budesonide/Formoterol Fumarate) 10.2 Gm Hfa.aer.ad 10.2 Gm IH BID Duoneb 0.5 Mg-3 Mg/3 Ml Soln (Ipratropium/Albuterol Sulfate) 3 Ml Ampul.neb 3 Ml IH Q4HRS Allergies Allergies: Coded Allergies: gadopentetate dimeglumine (Verified Allergy, Severe, Anaphylaxis, 07/09/14) levofloxacin (Verified Allergy, Severe, Hives, 11/09/15) acetaminophen (Verified Allergy, Intermediate, Itching, 12/28/17) Patient has received hydrocodone/APAP and can tolerate Crocker brand the best. Other lead android developer products cause her to itch based on the excipients that are used. Even the brand name products cause her to have itching. adhesive (Verified Allergy, Intermediate, Rash, 07/09/14) hydrocodone (Verified Allergy, Intermediate, Itching, 12/28/17) Patient has received hydrocodone/APAP and can tolerate Crocker brand the best. Other lead android developer products cause her to itch based on the excipients that are used. Even the brand name products cause her to have itching. Sulfa (Sulfonamide Antibiotics) (Verified Adverse Reaction, Intermediate, ABDOMINAL PAIN, 07/15/14) diazepam (Verified Adverse Reaction, Intermediate, "MAKES ME CRAZY", 07/15/14) procaine (Verified Adverse Reaction, Intermediate, Nausea and Vomiting, 07/15/14) doxycycline (Verified Adverse Reaction, Mild, Nausea and Vomiting, 02/16/16) Uncoded Allergies: "SCENTS" (Allergy, Severe, 03/13/18) ROS General: YES: Chills, Fatigue, Malaise; No: Night Sweats, Appetite, Other PSYCHOLOGICAL ROS: No: Anxiety, Behavioral Disorder, Concentration difficultie, Decreased libido, Depression, Disorientation, Hallucinations, Hostility, Irritablity, Memory difficulties, Mood Swings, Obsessive thoughts, Physical abuse, Sexual abuse, Sleep disturbances, Suicidal ideation, Other Eyes: No Blurry vision, No Decreased vision, No Double vision, No Dry eyes, No Excessive tearing, No Eye Pain, No Itchy Eyes, No Loss of vision, No Photophobia, No Scotomata, No Uses contacts, No Uses glasses, No Other HEENT: No: Heacaches, Visual Changes, Hearing change, Nasal congestion, Nasal discharge, Oral lesions, Sinus pain, Sore Throat, Epistaxis, Sneezing, Snoring, Tinnitus, Vertigo, Vocal changes, Other ALLERGY AND IMMUNOLOGY: YES: Hives; No: Insect Bite Sensitivity, Itchy/Watery Eyes, Nasal Congestion, Post Nasal Drip, Seasonal Allergies, Other Hematological and Lymphatic: No: Bleeding Problems, Blood Clots, Blood Transfusions, Brusing, Night Sweats, Pallor, Swollen Lymph Nodes, Other ENDOCRINE: No: Breast Changes, Galactorrhea, Hair Pattern Changes, Hot Flashes, Malaise/lethargy, Mood Swings, Palpitations, Polydipsia/polyuria, Skin Changes, Temperature Intolerance, Unexpected Weight Changes, Other Breast: No New/Changing Breast Lumps, No Nipple changes, No Nipple discharge, No Other Respiratory: YES: Cough, Shortness of breath, SOB with excertion, Sputum Changes, Tachypnea, Wheezing Cardiovascular: No Chest Pain, No Palpitations, No Orthopnea, No Paroxysmal Noc. Dyspnea, No Edema, No Lt Headedness, No Other Gastrointestinal: No Nausea, No Vomiting, No Abdominal Pain, No Diarrhea, No Constipation, No Melena, No Hematochezia, No Other Genitourinary: No Dysuria, No Frequency, No Incontinence, No Hematuria, No Retention, No Discharge, No Urgency, No Pain, No Flank Pain, No Other, No , No , No , No , No , No , No Musculoskeletal: Yes Joint Stiffness; No Gait Disturbance, No Joint Pain, No Joint Swelling, No Muscle Pain, No Muscular Weakness, No Pain In:, No Swelling In:, No Other Neurological: No Behavorial Changes, No Bowel/Bladder ControlChng, No Confusion, No Dizziness, No Gait Disturbance, No Headaches, No Impaired Coord/balance, No Memory Loss, No Numbness/Tingling, No Seizures, No Speech Problems, No Tremors, No Visual Changes, No Weakness, No Other Skin: Yes Dry Skin; No Eczema, No Hair Changes, No Lumps, No Mole Changes, No Mottling, No Nail Changes, No Pruritus, No Rash, No Skin Lesion Changes, No Other, No Acne Vitals Vitals Vital Signs Date Time Temp Pulse Resp B/P (MAP) Pulse Ox O2 Delivery O2 Flow Rate FiO2 01/07/21 08:41 18 Room Air 01/07/21 08:35 109 166/96 01/07/21 07:53 96 01/07/21 03:00 98.1 98.1 Physical Exam General: Alert, Oriented X3, Cooperative, No acute distress, mild distress Heart: Regular rate, Normal S1, Normal S2 Lungs: Clear, Wheezing, Other Abdomen: Normal bowel sounds, Soft Extremities: No clubbing, No cyanosis Labs LABS EXAM: AP View of the chest DATE: 01/06/2021 11:26 AM INDICATION: Reason: SOA, COPD / Spl. Instructions: / History: COMPARISON: 12/16/2020 09/08/2020 FINDINGS: The heart is not enlarged. Aorta is tortuous with atherosclerotic calcifications. Patchy bibasilar opacities likely atelectasis. No pleural effusion or pneumothorax. AC joint degenerative changes are seen. IMPRESSION: Patchy bibasilar opacities likely atelectasis or developing consolidation. Electronically signed by: Jevon Harrell MD (01/06/2021 12:17 PM) [facility] DICTATED and SIGNED BY: JEVON HARRELL MD DATE: 01/06/21 [id number] Laboratory Tests Test 01/06/21 11:40 01/07/21 03:45 White Blood Count 6.5 x10^3/uL (4.0-11.0) Red Blood Count 4.14 x10^6/uL (3.50-5.40) Hemoglobin 11.2 g/dL (12.0-15.5) Hematocrit 33.9 % (36.0-47.0) Mean Corpuscular Volume 82 fL (79-100) Mean Corpuscular Hemoglobin 27 pg (25-35) Mean Corpuscular Hemoglobin Concent 33 g/dL (31-37) Red Cell Distribution Width 15.3 % (11.5-14.5) Platelet Count 344 x10^3/uL (140-400) Neutrophils (%) (Auto) 54 % (31-73) Lymphocytes (%) (Auto) 27 % (24-48) Monocytes (%) (Auto) 7 % (0-9) Eosinophils (%) (Auto) 11 % (0-3) Basophils (%) (Auto) 2 % (0-3) Neutrophils # (Auto) 3.5 x10^3/uL (1.8-7.7) Lymphocytes # (Auto) 1.7 x10^3/uL (1.0-4.8) Monocytes # (Auto) 0.4 x10^3/uL (0.0-1.1) Eosinophils # (Auto) 0.7 x10^3/uL (0.0-0.7) Basophils # (Auto) 0.1 x10^3/uL (0.0-0.2) Sodium Level 146 mmol/L (136-145) 141 mmol/L (136-145) Potassium Level 3.7 mmol/L (3.5-5.1) 4.2 mmol/L (3.5-5.1) Chloride Level 108 mmol/L (98-107) 106 mmol/L (98-107) Carbon Dioxide Level 26 mmol/L (21-32) 23 mmol/L (21-32) Anion Gap 12 (6-14) 12 (6-14) Blood Urea Nitrogen 14 mg/dL (7-20) 18 mg/dL (7-20) Creatinine 1.0 mg/dL (0.6-1.0) 1.0 mg/dL (0.6-1.0) Estimated GFR (Cockcroft-Gault) 55.5 55.5 BUN/Creatinine Ratio 14 (6-20) Glucose Level 97 mg/dL (70-99) 235 mg/dL (70-99) Lactic Acid Level 1.1 mmol/L (0.4-2.0) Calcium Level 8.9 mg/dL (8.5-10.1) 8.9 mg/dL (8.5-10.1) Total Bilirubin 0.6 mg/dL (0.2-1.0) Aspartate Amino Transf (AST/SGOT) 17 U/L (15-37) Alanine Aminotransferase (ALT/SGPT) 29 U/L (14-59) Alkaline Phosphatase 99 U/L (46-116) Troponin I Quantitative < 0.017 ng/mL (0.000-0.055) Total Protein 6.6 g/dL (6.4-8.2) Albumin 3.5 g/dL (3.4-5.0) Albumin/Globulin Ratio 1.1 (1.0-1.7) Assessment and Plan Assessmemt and Plan Problems Medical Problems: (1) COPD exacerbation Status: Acute (2) Pneumonia Status: Acute Comment Review of Relevant I have reviewed the following items blayne (where applicable) has been applied. Labs Laboratory Tests Test 01/06/21 11:40 01/07/21 03:45 White Blood Count 6.5 x10^3/uL (4.0-11.0) Red Blood Count 4.14 x10^6/uL (3.50-5.40) Hemoglobin 11.2 g/dL (12.0-15.5) Hematocrit 33.9 % (36.0-47.0) Mean Corpuscular Volume 82 fL (79-100) Mean Corpuscular Hemoglobin 27 pg (25-35) Mean Corpuscular Hemoglobin Concent 33 g/dL (31-37) Red Cell Distribution Width 15.3 % (11.5-14.5) Platelet Count 344 x10^3/uL (140-400) Neutrophils (%) (Auto) 54 % (31-73) Lymphocytes (%) (Auto) 27 % (24-48) Monocytes (%) (Auto) 7 % (0-9) Eosinophils (%) (Auto) 11 % (0-3) Basophils (%) (Auto) 2 % (0-3) Neutrophils # (Auto) 3.5 x10^3/uL (1.8-7.7) Lymphocytes # (Auto) 1.7 x10^3/uL (1.0-4.8) Monocytes # (Auto) 0.4 x10^3/uL (0.0-1.1) Eosinophils # (Auto) 0.7 x10^3/uL (0.0-0.7) Basophils # (Auto) 0.1 x10^3/uL (0.0-0.2) Sodium Level 146 mmol/L (136-145) 141 mmol/L (136-145) Potassium Level 3.7 mmol/L (3.5-5.1) 4.2 mmol/L (3.5-5.1) Chloride Level 108 mmol/L (98-107) 106 mmol/L (98-107) Carbon Dioxide Level 26 mmol/L (21-32) 23 mmol/L (21-32) Anion Gap 12 (6-14) 12 (6-14) Blood Urea Nitrogen 14 mg/dL (7-20) 18 mg/dL (7-20) Creatinine 1.0 mg/dL (0.6-1.0) 1.0 mg/dL (0.6-1.0) Estimated GFR (Cockcroft-Gault) 55.5 55.5 BUN/Creatinine Ratio 14 (6-20) Glucose Level 97 mg/dL (70-99) 235 mg/dL (70-99) Lactic Acid Level 1.1 mmol/L (0.4-2.0) Calcium Level 8.9 mg/dL (8.5-10.1) 8.9 mg/dL (8.5-10.1) Total Bilirubin 0.6 mg/dL (0.2-1.0) Aspartate Amino Transf (AST/SGOT) 17 U/L (15-37) Alanine Aminotransferase (ALT/SGPT) 29 U/L (14-59) Alkaline Phosphatase 99 U/L (46-116) Troponin I Quantitative < 0.017 ng/mL (0.000-0.055) Total Protein 6.6 g/dL (6.4-8.2) Albumin 3.5 g/dL (3.4-5.0) Albumin/Globulin Ratio 1.1 (1.0-1.7) Laboratory Tests Test 01/06/21 11:40 01/07/21 03:45 White Blood Count 6.5 x10^3/uL (4.0-11.0) Red Blood Count 4.14 x10^6/uL (3.50-5.40) Hemoglobin 11.2 g/dL (12.0-15.5) Hematocrit 33.9 % (36.0-47.0) Mean Corpuscular Volume 82 fL (79-100) Mean Corpuscular Hemoglobin 27 pg (25-35) Mean Corpuscular Hemoglobin Concent 33 g/dL (31-37) Red Cell Distribution Width 15.3 % (11.5-14.5) Platelet Count 344 x10^3/uL (140-400) Neutrophils (%) (Auto) 54 % (31-73) Lymphocytes (%) (Auto) 27 % (24-48) Monocytes (%) (Auto) 7 % (0-9) Eosinophils (%) (Auto) 11 % (0-3) Basophils (%) (Auto) 2 % (0-3) Neutrophils # (Auto) 3.5 x10^3/uL (1.8-7.7) Lymphocytes # (Auto) 1.7 x10^3/uL (1.0-4.8) Monocytes # (Auto) 0.4 x10^3/uL (0.0-1.1) Eosinophils # (Auto) 0.7 x10^3/uL (0.0-0.7) Basophils # (Auto) 0.1 x10^3/uL (0.0-0.2) Sodium Level 146 mmol/L (136-145) 141 mmol/L (136-145) Potassium Level 3.7 mmol/L (3.5-5.1) 4.2 mmol/L (3.5-5.1) Chloride Level 108 mmol/L (98-107) 106 mmol/L (98-107) Carbon Dioxide Level 26 mmol/L (21-32) 23 mmol/L (21-32) Anion Gap 12 (6-14) 12 (6-14) Blood Urea Nitrogen 14 mg/dL (7-20) 18 mg/dL (7-20) Creatinine 1.0 mg/dL (0.6-1.0) 1.0 mg/dL (0.6-1.0) Estimated GFR (Cockcroft-Gault) 55.5 55.5 BUN/Creatinine Ratio 14 (6-20) Glucose Level 97 mg/dL (70-99) 235 mg/dL (70-99) Lactic Acid Level 1.1 mmol/L (0.4-2.0) Calcium Level 8.9 mg/dL (8.5-10.1) 8.9 mg/dL (8.5-10.1) Total Bilirubin 0.6 mg/dL (0.2-1.0) Aspartate Amino Transf (AST/SGOT) 17 U/L (15-37) Alanine Aminotransferase (ALT/SGPT) 29 U/L (14-59) Alkaline Phosphatase 99 U/L (46-116) Troponin I Quantitative < 0.017 ng/mL (0.000-0.055) Total Protein 6.6 g/dL (6.4-8.2) Albumin 3.5 g/dL (3.4-5.0) Albumin/Globulin Ratio 1.1 (1.0-1.7) Medications Current Medications Methylprednisolone Sodium Succinate (SOLU-Medrol 125MG VIAL) 125 mg 1X ONCE IV Last administered on 01/06/21at 11:43; Start 01/06/21 at 11:15; Stop 01/06/21 at 11:18; Status DC Albuterol Sulfate (Ventolin Neb Soln) 10 mg 1X ONCE CONT NEB Last administered on 01/06/21at 11:27; Start 01/06/21 at 11:15; Stop 01/06/21 at 11:18; Status DC Albuterol/ Ipratropium (Duoneb) 3 ml 1X ONCE NEB Last administered on 01/06/21at 11:23; Start 01/06/21 at 11:30; Stop 01/06/21 at 11:31; Status DC Piperacillin Sod/ Tazobactam Sod 3.375 gm/Sodium Chloride 50 ml @ 100 mls/hr 1X ONCE IV Last administered on 01/06/21at 13:31; Start 01/06/21 at 12:30; Stop 01/06/21 at 12:59; Status DC Albuterol/ Ipratropium (Duoneb) 3 ml RTQID NEB Last administered on 01/07/21at 07:50; Start 01/06/21 at 16:00; Stop 01/07/21 at 15:59 Oxycodone HCl (Roxicodone) 10 mg 1X ONCE PO Last administered on 01/06/21at 13:46; Start 01/06/21 at 13:45; Stop 01/06/21 at 13:46; Status DC Piperacillin Sod/ Tazobactam Sod (Zosyn Per Pharmacy) 1 each PRN DAILY PRN MC SEE COMMENTS; Start 01/06/21 at 15:00 Methylprednisolone Sodium Succinate (SOLU-Medrol 125MG VIAL) 80 mg Q8HRS IV Last administered on 01/07/21at 06:15; Start 01/06/21 at 22:00 Piperacillin Sod/ Tazobactam Sod 3.375 gm/Sodium Chloride 50 ml @ 100 mls/hr Q6HRS IV Last administered on 01/07/21at 06:15; Start 01/06/21 at 19:00 Sodium Chloride (Normal Saline Flush) 3 ml QSHIFT PRN IV AFTER MEDS AND BLOOD DRAWS; Start 01/06/21 at 15:00 Sodium Chloride 1,000 ml @ 70 mls/hr [id number] IV Last administered on 01/07/21at 06:16; Start 01/06/21 at 15:00 Ondansetron HCl (Zofran) 4 mg PRN Q4HRS PRN IV NAUSEA/VOMITING; Start 01/06/21 at 15:00 Acetaminophen (Tylenol) 650 mg PRN Q4HRS PRN PO TEMP OVER 100.4F OR MILD PAIN; Start 01/06/21 at 15:00 Al Hydroxide/Mg Hydroxide (Mylanta Plus Xs) 30 ml PRN DAILY PRN PO HEARTBURN / GAS; Start 01/06/21 at 15:00 Sodium Monofluorophosphate (Fleet Adult) 133 ml PRN DAILY PRN MT CONSTIPATION; Start 01/06/21 at 15:00 Docusate Sodium (Colace) 100 mg PRN BID PRN PO HARD STOOLS; Start 01/06/21 at 15:00 Albuterol/ Ipratropium (Duoneb) 3 ml Q4HRS W/A NEB ; Start 01/06/21 at 18:00; Stop 01/06/21 at 18:28; Status DC Guaifenesin (Robitussin) 200 mg PRN Q4HRS PRN PO COUGH Last administered on 01/06/21at 19:59; Start 01/06/21 at 15:00 Lorazepam (Ativan) 0.5 mg PRN Q4HRS PRN PO ANXIETY / AGITATION- 2ND CHOI; Start 01/06/21 at 15:00 Enoxaparin Sodium (Lovenox 40mg Syringe) 40 mg Q24H SQ Last administered on 01/06/21at 19:59; Start 01/06/21 at 21:00 Alprazolam (Xanax) 1 mg PRN TID PRN PO ANXIETY / AGITATION; Start 01/06/21 at 15:15 Aspirin (Ecotrin) 81 mg DAILY PO Last administered on 01/07/21at 08:34; Start 01/07/21 at 09:00 Atorvastatin Calcium (Lipitor) 40 mg HS PO Last administered on 01/06/21at 19:58; Start 01/06/21 at 21:00 Baclofen (Lioresal) 10 mg PRN TID PRN PO MUSCLE SPASMS; Start 01/06/21 at 15:15 Benzonatate (Tessalon Perle) 100 mg TID PO Last administered on 01/07/21at 08:34; Start 01/06/21 at 21:00 Calcium Polycarbophil (Fibercon) 625 mg PRN DAILY PRN PO GI SYMPTOMS; Start 01/06/21 at 15:15 Cetirizine HCl (ZyrTEC) 10 mg DAILY PO Last administered on 01/07/21at 08:35; Start 01/07/21 at 09:00 Cromolyn Sodium (Nasalcrom) 1 spray TID NS Last administered on 01/07/21at 08:35; Start 01/06/21 at 21:00 Docusate Sodium (Colace) 100 mg PRN BID PRN PO HARD STOOLS; Start 01/06/21 at 15:15; Status UNV Guaifenesin (Robitussin) 200 mg PRN Q4HRS PRN PO COUGH; Start 01/06/21 at 15:15; Status UNV Albuterol/ Ipratropium (Duoneb) 3 ml Q4HRS IH ; Start 01/06/21 at 16:00; Status UNV Levothyroxine Sodium (Synthroid) 112 mcg DAILY07 PO Last administered on 01/07/21at 06:15; Start 01/07/21 at 07:00 Lisinopril (Prinivil) 5 mg DAILY PO Last administered on 01/07/21at 08:35; Start 01/07/21 at 09:00 Al Hydroxide/Mg Hydroxide (Mylanta Plus Xs) 30 ml PRN DAILY PRN PO HEARTBURN / GAS; Start 01/06/21 at 15:15; Status UNV Montelukast Sodium (Singulair) 10 mg DAILY PO Last administered on 01/07/21at 08:35; Start 01/07/21 at 09:00 Roflumilast (Daliresp) 500 mcg DAILY PO Last administered on 01/07/21at 08:34; Start 01/07/21 at 09:00 Zolpidem Tartrate (Ambien) 5 mg PRN QHS PRN PO INSOMNIA Last administered on 01/06/21at 23:23; Start 01/06/21 at 15:15 Non-Formulary Medication (Budesonide/ Formoterol Fumarate (Symbicort 160-4.5 Mcg Inhaler)) 10.2 gm BID IH ; Start 01/06/21 at 21:00; Status UNV Vitamin D (Vitamin D3) 5,000 unit DAILY PO Last administered on 01/07/21at 08:35; Start 01/07/21 at 09:00 Clobetasol Propionate (Temovate) 1 chanel PRN Q2HRS PRN TP SKIN CLEANSING; Start 01/06/21 at 15:30 Non-Formulary Medication (Cromolyn Sodium ) 20 mg PRN Q4HRS IH ; Start 01/06/21 at 15:15; Status UNV Glyburide (Diabeta) 2.5 mg DAILY PO Last administered on 01/07/21at 08:34; Start 01/07/21 at 09:00 Oxycodone HCl (Roxicodone) 10 mg PRN Q6HRS PRN PO MODERATE-SEVERE PAIN Last administered on 01/07/21at 08:41; Start 01/06/21 at 15:30 Pantoprazole Sodium (Protonix) 40 mg DAILYAC PO Last administered on 01/07/21at 08:35; Start 01/07/21 at 07:30 Psyllium Hydrophilic Mucilloid (Metamucil Fiber Packet) 1 pkt PRN DAILY PRN PO CONSTIPATION; Start 01/06/21 at 15:30 Budesonide (Pulmicort) 0.5 mg RTBID NEB Last administered on 01/07/21at 07:50; Start 01/06/21 at 20:00 Sodium Chloride 1,000 ml @ 75 mls/hr [id number] IV Last administered on 01/06/21at 18:04; Start 01/06/21 at 18:00 Albuterol Sulfate (Ventolin Neb Soln) 2.5 mg Q4HRS PRN NEB SHORTNESS OF BREATH Last administered on 01/07/21at 04:41; Start 01/06/21 at 18:45 Active Scripts Active Prednisone 20 Mg Tablet 2 Tab PO DAILY Start this prescription tomorrow, Thursday12/17/20 Duoneb 0.5-3(2.5) Mg/3 Ml (Albuterol/Ipratropium) 3 Ml Ampul.neb 3 Ml NEB Q4- 6HRS PRN Prednisone 20 Mg Tablet 1.5 Tab PO DAILY 5 Days Prednisone 20 Mg Tablet 40 Mg PO DAILY 5 Days Dok (Docusate Sodium) 100 Mg Capsule 100 Mg PO PRN BID PRN 30 Days Mag-Al Plus Xs Suspension (Mag Hydrox/Al Hydrox/Simeth) 30 Ml Oral.susp 30 Ml PO PRN DAILY PRN 14 Days Guaifenesin 100 Mg/5 Ml Liquid 200 Mg PO PRN Q4HRS PRN 14 Days Cromolyn Sodium 26 Ml Dexter.pump 1 Dexter NS TID 30 Days Tylenol (Acetaminophen) 325 Mg Tablet 650 Mg PO PRN Q4HRS PRN 14 Days Proair Hfa (Albuterol Sulfate) 8.5 Gm Hfa.aer.ad 2.5 Mg NEB PRN Q4HRS PRN 30 Days Tessalon Perle (Benzonatate) 100 Mg Capsule 1 Cap PO TID Reported Clobetasol Propionate 15 Gm Cream..g. 1 Chanel TP Q2HR PRN Synthroid (Levothyroxine Sodium) 112 Mcg Tablet 1 Tab PO DAILY Oxycodone Hcl Immed.release (Oxycodone Hcl) 10 Mg Tablet 1 Tab PO Q6HRS PRN Duoneb 0.5-3(2.5) Mg/3 Ml (Albuterol/Ipratropium) 3 Ml Ampul.neb 1 Puff NEB Q4HRS PRN Combivent Respimat Inhal (Ipratropium/Albuterol Sulfate) 4 Gm Aer.w.adap 2 Inh INH Q4-6HRS PRN Baclofen 10 Mg Tablet 1 Tab PO TID PRN Glyburide 2.5 Mg Tablet 1 Tab PO DAILY Atorvastatin Calcium 20 Mg Tablet 2 Tab PO HS 30 Days Lisinopril 5 Mg Tablet 1 Tab PO DAILY 30 Days Aspirin Ec (Aspirin) 81 Mg Tablet. 1 Tab PO DAILY Daliresp (Roflumilast) 500 Mcg Tablet 1 Tab PO DAILY Ambien (Zolpidem Tartrate) 5 Mg Tablet 1 Tab PO PRN QHS PRN Fiber (Psyllium Husk) 0.52 Gm Capsule 0.52 Gm PO PRN DAILY PRN Vitamin D (Cholecalciferol (Vitamin D3)) 2,000 Unit Capsule 5,000 Unit PO DAILY Alprazolam 1 Mg Tablet 1 Tab PO TID PRN Cetirizine Hcl 10 Mg Tablet 10 Mg PO DAILY Fibercon (Calcium Polycarbophil) 625 Mg Tablet 625 Mg PO PRN DAILY Protonix Packet (Pantoprazole Sodium) 40 Mg Granpkt. 40 Mg PO DAILY08 Singulair Tablet (Montelukast Sodium) 10 Mg Tablet 10 Mg PO DAILY Benadryl (Diphenhydramine Hcl) 25 Mg Capsule 25-50 Mg PO PRN Q4HRS Cromolyn Sodium 20 Mg/2 Ml Ampul.neb 20 Mg IH PRN Q4HRS Symbicort 160-4.5 Mcg Inhaler (Budesonide/Formoterol Fumarate) 10.2 Gm Hfa.aer.ad 10.2 Gm IH BID Duoneb 0.5 Mg-3 Mg/3 Ml Soln (Ipratropium/Albuterol Sulfate) 3 Ml Ampul.neb 3 Ml IH Q4HRS Vitals/I & O Vital Sign - Last 24 Hours 01/06/21 01/06/21 01/06/21 01/06/21 11:08 11:31 11:46 12:42 Temp 98.4 98.4 Pulse 113 89 73 Resp 34 18 18 B/P (MAP) 140/77 (98) 118/71 (87) 111/56 (74) Pulse Ox 96 98 100 O2 Delivery Room Air Room Air Room Air Aerosol Mask 01/06/21 01/06/21 01/06/21 01/06/21 13:42 13:46 14:42 14:50 Temp 97.9 97.9 Pulse 94 98 97 Resp 18 20 24 B/P (MAP) 125/71 (89) 137/70 (92) 139/79 (99) Pulse Ox 100 100 96 O2 Delivery Aerosol Mask Room Air Room Air Room Air 01/06/21 01/06/21 01/06/21 01/06/21 15:00 15:24 19:35 19:59 Resp 20 Pulse Ox 94 O2 Delivery Room Air Room Air Room Air Room Air 01/06/21 01/06/21 01/06/21 01/06/21 19:59 20:08 20:29 23:32 Temp 98.5 97.9 98.5 97.9 Pulse 104 100 Resp 20 20 18 B/P (MAP) 107/64 (78) 139/80 (99) Pulse Ox 100 95 94 O2 Delivery Room Air Room Air Room Air Room Air 01/07/21 01/07/21 01/07/21 01/07/21 03:00 04:42 07:50 07:53 Temp 98.1 98.1 Pulse 94 Resp 20 B/P (MAP) 128/77 (94) Pulse Ox 94 95 96 96 O2 Delivery Room Air Room Air Room Air Room Air 01/07/21 01/07/21 08:35 08:41 Pulse 109 Resp 18 B/P (MAP) 166/96 O2 Delivery Room Air Intake and Output 01/06/21 01/06/21 01/07/21 15:00 23:00 07:00 Intake Total 50 ml 660 ml 300 ml Output Total 650 ml 1100 ml Balance 50 ml 10 ml -800 ml Justicifation of Admission Dx: Justifications for Admission: Justification of Admission Dx: N/A ERICA HERNANDEZ MD January 07, 2021 08:52
[2021-01-07] MEDS ORDERED: DEXTROSE 50% 25 GM / 50ML DISP.SYRIN. IV PRN (10:30)
--- NOTE | 2021-01-07 10:35 | CONS ---
DATE OF CONSULTATION: 01/07/2021 PULMONARY CONSULTATION ATTENDING PHYSICIAN: Dr. Bruce. REASON FOR CONSULTATION: Asthma exacerbation. HISTORY OF PRESENT ILLNESS: The patient is a 65-year-old who has asthmatic bronchitis with a strong component of asthma. The patient has required frequent hospitalization for increasing dyspnea. She was brought into the hospital with shortness of breath for last three days. She has a mild cough and she was wheezing. She took her home nebulizer without any improvement. The patient has saturation of 96% on room air. She has been given nebulizer treatments along with IV Solu-Medrol. She is starting to feel better. The patient states her cough is mostly nonproductive. No chest pain, no headache, no nausea, vomiting, no diarrhea, no dysuria. No focal weakness. Chest x-ray was reviewed by me. I do not see any definite consolidation. PAST MEDICAL HISTORY: Significant for history of COPD with an asthmatic component, history of multiple allergies to perfumes and stents, history of CAD, hypertension, anxiety, depression, osteoarthritis, fibromyalgia, and hypothyroidism. PAST SURGICAL HISTORY: Tonsillectomy and hysterectomy. FAMILY HISTORY: Chronic bronchitis and hypertension. SOCIAL HISTORY: Quit tobacco in 2006. Before that, smoked for 30+ years. REVIEW OF SYSTEMS: A 12-point system obtained. Pertinent positives discussed in my history of present illness, otherwise noncontributory. FAMILY HISTORY: Noncontributory to lungs. PHYSICAL EXAMINATION: VITAL SIGNS: Reviewed. She is afebrile, pulse ox 96% on room air. NECK: Supple. LUNGS: With occasional wheezes posteriorly. HEART: Irregular. ABDOMEN: Soft, obese. EXTREMITIES: With no pitting edema. LABORATORY DATA: Reviewed. White cell count 6.5, hemoglobin 11.2 and platelets are 344. BUN and creatinine 18 and 1.0. IMPRESSION: 1. The patient with underlying asthmatic bronchitis comes in with an acute exacerbation of her reactive airway disease. She was coughing. She has wheezing. 2. Mild bronchitis. Chest x-ray with some basal atelectasis, but no definite consolidation seen. 3. History of obstructive sleep apnea, on home CPAP. Her CPAP machine is more than 5 years old and she would be eligible for a new CPAP machine. RECOMMENDATIONS: 1. Discussed with Dr. Bruce and the patient. We will keep one more day in the hospital. 2. Continue present IV Solu-Medrol. 3. Continue with Pulmicort. 4. DuoNebs. 5. At home, she no longer has been able to afford Symbicort. We will replace with Osbaldo Cristobal. 6. Likely discharge in next 24 hours. 7. Empiric antibiotic for now, but can be discontinued to p.o. upon discharge. ANDREAS DR: Fadi TID: [id number]
--- NOTE | 2021-01-07 11:38 | PDOC2 ---
CARDIAC CONSULT DATE OF CONSULT Date of Consult DATE: 01/07/21 TIME: 11:29 REASON FOR CONSULT Reason for Consult: dyspnea, CAD REFERRING PHYSICIAN Referring Physician: Dr. Bruec SOURCE Source: Chart review, Patient HISTORY OF PRESENT ILLNESS HISTORY OF PRESENT ILLNESS This is a 65 yo female who presented secondary to shortness of breath and wheezing. Patient has a history of bronchitis, asthma and is allergic to scents. Was out on Thursday for a few minutes letting her dog out. When she came back inside, began coughing. The next morning, woke up very short of air with chest tightness and significant wheezing. Wheezing not improved with breathing treatment or inhaler so she came to the ED for further evaluation and treatment. Denies any dizziness, diaphoresis, palpitations, or nausea/vomiting. PAST MEDICAL HISTORY Past Medical History Cardiovascular: CAD, HTN Pulmonary: Asthma, COPD, Other (KELLEE) GI: GERD Psych: Anxiety, Depression Musculoskeletal: Osteoarthritis Rheumatologic: Fibromyalgia Endocrine: Hypothyroidism PAST SURGICAL HISTORY Past Surgical History Tonsillectomy, Hysterectomy FAMILY HISTORY Family History: Hypertension SOCIAL HISTORY Social History Smoke: Quit ALCOHOL: none Drugs: None Lives: Alone CURRENT MEDICATIONS CURRENT MEDICATIONS Current Medications Medications (Trade) Dose Ordered Sig/Smooth Route PRN Reason Start Time Stop Time Status Last Admin Dose Admin Albuterol/ Ipratropium (Duoneb) 3 ml 1X ONCE NEB 01/06/21 11:30 01/06/21 11:31 DC 01/06/21 11:23 Piperacillin Sod/ Tazobactam Sod 3.375 gm/Sodium Chloride 50 ml @ 100 mls/hr 1X ONCE IV 01/06/21 12:30 01/06/21 12:59 DC 01/06/21 13:31 Albuterol/ Ipratropium (Duoneb) 3 ml RTQID NEB 01/06/21 16:00 01/07/21 15:59 01/07/21 07:50 Oxycodone HCl (Roxicodone) 10 mg 1X ONCE PO 01/06/21 13:45 01/06/21 13:46 DC 01/06/21 13:46 Methylprednisolone Sodium Succinate (SOLU-Medrol 125MG VIAL) 80 mg Q8HRS IV 01/06/21 22:00 01/07/21 06:15 Piperacillin Sod/ Tazobactam Sod 3.375 gm/Sodium Chloride 50 ml @ 100 mls/hr Q6HRS IV 01/06/21 19:00 01/07/21 06:15 Sodium Chloride 1,000 ml @ 70 mls/hr [id number] IV 01/06/21 15:00 01/07/21 10:26 DC 01/07/21 06:16 Guaifenesin (Robitussin) 200 mg PRN Q4HRS PRN PO COUGH 01/06/21 15:00 01/06/21 19:59 Enoxaparin Sodium (Lovenox 40mg Syringe) 40 mg Q24H SQ 01/06/21 21:00 01/06/21 19:59 Aspirin (Ecotrin) 81 mg DAILY PO 01/07/21 09:00 01/07/21 08:34 Atorvastatin Calcium (Lipitor) 40 mg HS PO 01/06/21 21:00 01/06/21 19:58 Benzonatate (Tessalon Perle) 100 mg TID PO 01/06/21 21:00 01/07/21 08:34 Cetirizine HCl (ZyrTEC) 10 mg DAILY PO 01/07/21 09:00 01/07/21 08:35 Cromolyn Sodium (Nasalcrom) 1 spray TID NS 01/06/21 21:00 01/07/21 08:35 Levothyroxine Sodium (Synthroid) 112 mcg DAILY07 PO 01/07/21 07:00 01/07/21 06:15 Lisinopril (Prinivil) 5 mg DAILY PO 01/07/21 09:00 01/07/21 08:35 Montelukast Sodium (Singulair) 10 mg DAILY PO 01/07/21 09:00 01/07/21 08:35 Roflumilast (Daliresp) 500 mcg DAILY PO 01/07/21 09:00 01/07/21 08:34 Zolpidem Tartrate (Ambien) 5 mg PRN QHS PRN PO INSOMNIA 01/06/21 15:15 01/06/21 23:23 Vitamin D (Vitamin D3) 5,000 unit DAILY PO 01/07/21 09:00 01/07/21 08:35 Glyburide (Diabeta) 2.5 mg DAILY PO 01/07/21 09:00 01/07/21 08:34 Oxycodone HCl (Roxicodone) 10 mg PRN Q6HRS PRN PO MODERATE-SEVERE PAIN 01/06/21 15:30 01/07/21 08:41 Pantoprazole Sodium (Protonix) 40 mg DAILYAC PO 01/07/21 07:30 01/07/21 08:35 Budesonide (Pulmicort) 0.5 mg RTBID NEB 01/06/21 20:00 01/07/21 07:50 Sodium Chloride 1,000 ml @ 75 mls/hr [id number] IV 01/06/21 18:00 01/06/21 18:04 Albuterol Sulfate (Ventolin Neb Soln) 2.5 mg Q4HRS PRN NEB SHORTNESS OF BREATH 01/06/21 18:45 01/07/21 04:41 ALLERGIES ALLERGIES: Coded Allergies: gadopentetate dimeglumine (Verified Allergy, Severe, Anaphylaxis, 07/09/14) levofloxacin (Verified Allergy, Severe, Hives, 11/09/15) acetaminophen (Verified Allergy, Intermediate, Itching, 12/28/17) Patient has received hydrocodone/APAP and can tolerate Crocker brand the best. Other clinical professor products cause her to itch based on the excipients that are used. Even the brand name products cause her to have itching. adhesive (Verified Allergy, Intermediate, Rash, 07/09/14) hydrocodone (Verified Allergy, Intermediate, Itching, 12/28/17) Patient has received hydrocodone/APAP and can tolerate Crocker brand the best. Other clinical professor products cause her to itch based on the excipients that are used. Even the brand name products cause her to have itching. Sulfa (Sulfonamide Antibiotics) (Verified Adverse Reaction, Intermediate, ABDOMINAL PAIN, 07/15/14) diazepam (Verified Adverse Reaction, Intermediate, "MAKES ME CRAZY", 07/15/14) procaine (Verified Adverse Reaction, Intermediate, Nausea and Vomiting, 07/15/14) doxycycline (Verified Adverse Reaction, Mild, Nausea and Vomiting, 02/16/16) Uncoded Allergies: "SCENTS" (Allergy, Severe, 03/13/18) ROS Review of System 14 point ROS conducted with pertinent positives noted above in HPI PHYSICAL EXAM PHYSICAL EXAM General: Alert, Oriented X3, Cooperative HEENT: Atraumatic Lungs: Other (diminished bases) Heart: Regular rate Abdomen: Soft, No hepatosplenomegaly Extremities: No edema, Normal pulses Skin: No breakdown Neuro: Normal speech, Sensation intact Psych/Mental Status: Mental status NL, Mood NL MUSCULOSKELETAL: Osteoarthritic changes both hands VITALS/I&O VITALS/I&O: Vital Signs Date Time Temp Pulse Resp B/P (MAP) Pulse Ox O2 Delivery O2 Flow Rate FiO2 01/07/21 09:11 20 Room Air 01/07/21 08:35 109 166/96 01/07/21 07:53 96 01/07/21 07:00 98.1 98.1 I & O 01/06/21 01/06/21 01/07/21 15:00 23:00 07:00 Intake Total 50 ml 660 ml 300 ml Output Total 650 ml 1100 ml Balance 50 ml 10 ml -800 ml LABS Lab: Laboratory Tests Test 01/06/21 11:40 01/07/21 03:45 White Blood Count 6.5 x10^3/uL (4.0-11.0) Red Blood Count 4.14 x10^6/uL (3.50-5.40) Hemoglobin 11.2 g/dL (12.0-15.5) L Hematocrit 33.9 % (36.0-47.0) L Mean Corpuscular Volume 82 fL (79-100) Mean Corpuscular Hemoglobin 27 pg (25-35) Mean Corpuscular Hemoglobin Concent 33 g/dL (31-37) Red Cell Distribution Width 15.3 % (11.5-14.5) H Platelet Count 344 x10^3/uL (140-400) Neutrophils (%) (Auto) 54 % (31-73) Lymphocytes (%) (Auto) 27 % (24-48) Monocytes (%) (Auto) 7 % (0-9) Eosinophils (%) (Auto) 11 % (0-3) H Basophils (%) (Auto) 2 % (0-3) Neutrophils # (Auto) 3.5 x10^3/uL (1.8-7.7) Lymphocytes # (Auto) 1.7 x10^3/uL (1.0-4.8) Monocytes # (Auto) 0.4 x10^3/uL (0.0-1.1) Eosinophils # (Auto) 0.7 x10^3/uL (0.0-0.7) Basophils # (Auto) 0.1 x10^3/uL (0.0-0.2) Sodium Level 146 mmol/L (136-145) H 141 mmol/L (136-145) Potassium Level 3.7 mmol/L (3.5-5.1) 4.2 mmol/L (3.5-5.1) Chloride Level 108 mmol/L (98-107) H 106 mmol/L (98-107) Carbon Dioxide Level 26 mmol/L (21-32) 23 mmol/L (21-32) Anion Gap 12 (6-14) 12 (6-14) Blood Urea Nitrogen 14 mg/dL (7-20) 18 mg/dL (7-20) Creatinine 1.0 mg/dL (0.6-1.0) 1.0 mg/dL (0.6-1.0) Estimated GFR (Cockcroft-Gault) 55.5 55.5 BUN/Creatinine Ratio 14 (6-20) Glucose Level 97 mg/dL (70-99) 235 mg/dL (70-99) H Lactic Acid Level 1.1 mmol/L (0.4-2.0) Calcium Level 8.9 mg/dL (8.5-10.1) 8.9 mg/dL (8.5-10.1) Total Bilirubin 0.6 mg/dL (0.2-1.0) Aspartate Amino Transferase (AST) 17 U/L (15-37) Alanine Aminotransferase (ALT) 29 U/L (14-59) Alkaline Phosphatase 99 U/L (46-116) Troponin I Quantitative < 0.017 ng/mL (0.000-0.055) Total Protein 6.6 g/dL (6.4-8.2) Albumin 3.5 g/dL (3.4-5.0) Albumin/Globulin Ratio 1.1 (1.0-1.7) Laboratory Tests 01/06/21 11:40 Laboratory Tests 01/06/21 11:40 01/07/21 03:45 ECHOCARDIOGRAM ECHOCARDIOGRAM <Conclusion> The left ventricular systolic function is normal and the ejection fraction is within normal range. The Ejection Fraction is 55-60%. There is normal LV segmental wall motion. DATE: 10/25/19 1143 HEART CATH HEART CATH CORONARY ANGIOGRAPHY: LM is a very short large caliber vessel with normal angiographic appearance. LAD is a large caliber vessel with mild luminal irregularities. Ramus is a moderate caliber vessel with normal angiographic apeparance. LCx is a moderate caliber co-dominant vessel with a mid 50%-70% stenosis. OM1 is a moderate caliber vessel with normal angiographic appearance. LPL1 is a small caliber vessel with normal angiographic appearance. RCA is a large caliber dominant vessel with mild luminal irregularities. RPDA is a moderate caliber vessel with normal angiographic appearance. INTERVENTIONAL TECHNIQUE: iFR of the LCx Heparin was used for anticoagulation. Through a 6Fr EBU 3.5 guide catheter, a 0.014'' iFR pressure wire was advanced to the distal LPL after appropriate normalization in the aorta and NTG administration. The iFR value was 0.95. Further intervention was deferred. Final angiography demonstrated no evidence of guide or wire related complications. Conclusion 1. Acute on chronic diastolic HF with LVEDP of 25 mm Hg. 2. One vessel CAD involving the LCx. 3. Negative iFR of the LCx at 0.95 Recommendations 1. Aggressive medical therapy to include statins, exercise and diet changes with strict BP control. 2. Will initiate low dose diuretics. DATE: 10/25/19 1243 ASSESSMENT/PLAN ASSESSMENT/PLAN 1. Dyspnea with AE asthma, COPD 2. CAD, non-obstructive. Cath 10/27 with moderate one-vessel disease of the LCx with negative iFR. clinically stable 3. Chronic diastolic CHF: well compensated 4. Hypertension 5. Diabetes, II 6. Hypothyroidism: on replacement 7. KELLEE with CPAP Recommendations Continue secondary prevention ASA, statin therapy Lung optimization Home antiHTN therapy resumed. Titrate blood pressure therapy as warranted No BB with AE asthma Outpatient echo as scheduled Follow up in our office with SUN Bolivar APRN January 07, 2021 11:38
[2021-01-07 11:40] VITALS: BP 143/80
[2021-01-07] MEDS: INSULIN LISPRO 300 UNITS/3 ML VIAL. SQ SCH ×2 (12:29→17:00)
--- NOTE | 2021-01-07 13:41 | NUR ---
SS following for discharge planning. SS reviewed pt chart and discussed with pt RN. Pt is from home and is currently on room air. Pt on IV Zosyn and IV Steroids. Discharge plan is to home when medically ready. SS will continue to follow for discharge planning.
[2021-01-07 15:30] VITALS: BP 145/84
[2021-01-07 19:00] VITALS: BP 161/86
[2021-01-07] MEDS: ATORVASTATIN CALCIUM 20 MG TABLET PO SCH (21:44)
[2021-01-07] MEDS: ENOXAPARIN 40 MG/0.4 ML SYRINGE. SQ SCH (21:45)
[2021-01-07 21:54] VITALS: BP 146/70
[2021-01-08] MEDS: oxyCODONE IR 5 MG TABLET PO PRN ×2 (04:32→10:04)
[2021-01-08] MEDS: methylPREDNISolone SOD SUCC PF 125 MG/2 ML VIAL. IV SCH (06:15)
[2021-01-08] MEDS: LEVOTHYROXINE 112 MCG TABLET PO SCH (06:16)
[2021-01-08] MEDS: PIPERACILLIN/TAZOBACTAM 3.375 GM in IV NORMAL SALINE 50ML 50 ML IV SCH (06:16)
[2021-01-08] MEDS: PANTOPRAZOLE 40 MG TABLET.DR. PO SCH (06:16)
[2021-01-08] MEDS: ALBUTEROL SULFATE 2.5 MG/3 ML NEBU. NEB PRN ×2 (07:45→11:40)
[2021-01-08] MEDS: BUDESONIDE 0.5 MG/2 ML NEBU. NEB SCH (07:45)
[2021-01-08 10:00] VITALS: BP 142/71
[2021-01-08] MEDS: BENZONATATE 100 MG CAPSULE. PO SCH (10:04)
--- NOTE | 2021-01-08 10:04 | PDOC ---
PULMONARY PROGRESS NOTES DATE: 01/08/21 TIME: 10:03 Subjective better Vitals Vital Signs Date Time Temp Pulse Resp B/P (MAP) Pulse Ox O2 Delivery O2 Flow Rate FiO2 01/08/21 07:54 98 Room Air 01/08/21 05:02 16 01/07/21 21:54 98.1 106 146/70 (95) 98.1 General: Alert, No acute distress Lungs: Wheezing (improved) Cardiovascular: S1, S2 Abdomen: Soft Extremities: No Edema Labs Laboratory Tests Test 01/06/21 11:40 01/07/21 03:45 01/07/21 12:23 01/07/21 17:27 White Blood Count 6.5 x10^3/uL (4.0-11.0) Red Blood Count 4.14 x10^6/uL (3.50-5.40) Hemoglobin 11.2 g/dL (12.0-15.5) Hematocrit 33.9 % (36.0-47.0) Mean Corpuscular Volume 82 fL (79-100) Mean Corpuscular Hemoglobin 27 pg (25-35) Mean Corpuscular Hemoglobin Concent 33 g/dL (31-37) Red Cell Distribution Width 15.3 % (11.5-14.5) Platelet Count 344 x10^3/uL (140-400) Neutrophils (%) (Auto) 54 % (31-73) Lymphocytes (%) (Auto) 27 % (24-48) Monocytes (%) (Auto) 7 % (0-9) Eosinophils (%) (Auto) 11 % (0-3) Basophils (%) (Auto) 2 % (0-3) Neutrophils # (Auto) 3.5 x10^3/uL (1.8-7.7) Lymphocytes # (Auto) 1.7 x10^3/uL (1.0-4.8) Monocytes # (Auto) 0.4 x10^3/uL (0.0-1.1) Eosinophils # (Auto) 0.7 x10^3/uL (0.0-0.7) Basophils # (Auto) 0.1 x10^3/uL (0.0-0.2) Sodium Level 146 mmol/L (136-145) 141 mmol/L (136-145) Potassium Level 3.7 mmol/L (3.5-5.1) 4.2 mmol/L (3.5-5.1) Chloride Level 108 mmol/L (98-107) 106 mmol/L (98-107) Carbon Dioxide Level 26 mmol/L (21-32) 23 mmol/L (21-32) Anion Gap 12 (6-14) 12 (6-14) Blood Urea Nitrogen 14 mg/dL (7-20) 18 mg/dL (7-20) Creatinine 1.0 mg/dL (0.6-1.0) 1.0 mg/dL (0.6-1.0) Estimated GFR (Cockcroft-Gault) 55.5 55.5 BUN/Creatinine Ratio 14 (6-20) Glucose Level 97 mg/dL (70-99) 235 mg/dL (70-99) Lactic Acid Level 1.1 mmol/L (0.4-2.0) Calcium Level 8.9 mg/dL (8.5-10.1) 8.9 mg/dL (8.5-10.1) Total Bilirubin 0.6 mg/dL (0.2-1.0) Aspartate Amino Transf (AST/SGOT) 17 U/L (15-37) Alanine Aminotransferase (ALT/SGPT) 29 U/L (14-59) Alkaline Phosphatase 99 U/L (46-116) Troponin I Quantitative < 0.017 ng/mL (0.000-0.055) Total Protein 6.6 g/dL (6.4-8.2) Albumin 3.5 g/dL (3.4-5.0) Albumin/Globulin Ratio 1.1 (1.0-1.7) Glucose (Fingerstick) 221 mg/dL (70-99) 137 mg/dL (70-99) Laboratory Tests Test 01/07/21 12:23 01/07/21 17:27 Glucose (Fingerstick) 221 mg/dL (70-99) 137 mg/dL (70-99) Medications Active Scripts Medications Dose Route/Sig Max Daily Dose Days Date Category Dose Instructions Prednisone 20 Mg Tablet 2 Tab PO DAILY 12/16/20 Rx Start this prescription tomorrow, Thursday12/17/20 Duoneb 0.5-3(2.5) Mg/3 Ml (Albuterol/Ipratropium) 3 Ml Ampul.neb 3 Ml NEB Q4-6HRS PRN 12/16/20 Rx Prednisone 20 Mg Tablet 1.5 Tab PO DAILY 5 09/22/20 Rx Prednisone 20 Mg Tablet 40 Mg PO DAILY 5 09/22/20 Rx Dok (Docusate Sodium) 100 Mg Capsule 100 Mg PO PRN BID PRN 30 09/22/20 Rx Mag-Al Plus Xs Suspension (Mag Hydrox/Al Hydrox/Simeth) 30 Ml Oral.susp 30 Ml PO PRN DAILY PRN 14 09/22/20 Rx Guaifenesin 100 Mg/5 Ml Liquid 200 Mg PO PRN Q4HRS PRN 14 09/22/20 Rx Cromolyn Sodium 26 Ml [place].pump 1 [place] NS TID 30 09/22/20 Rx Tylenol (Acetaminophen) 325 Mg Tablet 650 Mg PO PRN Q4HRS PRN 14 09/22/20 Rx Proair Hfa (Albuterol Sulfate) 8.5 Gm Hfa.aer.ad 2.5 Mg NEB PRN Q4HRS PRN 30 09/22/20 Rx Clobetasol Propionate 15 Gm Cream..g. 1 [place] TP Q2HR PRN 09/19/20 Reported Synthroid (Levothyroxine Sodium) 112 Mcg Tablet 1 Tab PO DAILY 09/19/20 Reported Oxycodone Hcl Immed.release (Oxycodone Hcl) 10 Mg Tablet 1 Tab PO Q6HRS PRN 09/19/20 Reported Duoneb 0.5-3(2.5) Mg/3 Ml (Albuterol/Ipratropium) 3 Ml Ampul.neb 1 Puff NEB Q4HRS PRN 09/19/20 Reported Combivent Respimat Inhal (Ipratropium/Albuterol Sulfate) 4 Gm Aer.w.adap 2 Inh INH Q4-6HRS PRN 09/19/20 Reported Baclofen 10 Mg Tablet 1 Tab PO TID PRN 09/19/20 Reported Glyburide 2.5 Mg Tablet 1 Tab PO DAILY 09/19/20 Reported Atorvastatin Calcium 20 Mg Tablet 2 Tab PO HS 30 10/26/19 Reported Lisinopril 5 Mg Tablet 1 Tab PO DAILY 30 10/26/19 Reported Aspirin Ec (Aspirin) 81 Mg Tablet.dr 1 Tab PO DAILY 10/26/19 Reported Tessalon Perle (Benzonatate) 100 Mg Capsule 1 Cap PO TID 08/08/18 Rx Daliresp (Roflumilast) 500 Mcg Tablet 1 Tab PO DAILY 02/12/16 Reported Ambien (Zolpidem Tartrate) 5 Mg Tablet 1 Tab PO PRN QHS PRN 09/17/14 Reported Fiber (Psyllium Husk) 0.52 Gm Capsule 0.52 Gm PO PRN DAILY PRN 07/10/14 Reported Vitamin D (Cholecalciferol (Vitamin D3)) 2,000 Unit Capsule 5,000 Unit PO DAILY 06/10/14 Reported Alprazolam 1 Mg Tablet 1 Tab PO TID PRN 06/10/14 Reported Cetirizine Hcl 10 Mg Tablet 10 Mg PO DAILY 03/23/14 Reported Fibercon (Calcium Polycarbophil) 625 Mg Tablet 625 Mg PO PRN DAILY 08/06/13 Reported Protonix Packet (Pantoprazole Sodium) 40 Mg Granpkt.dr 40 Mg PO DAILY08 08/06/13 Reported Singulair Tablet (Montelukast Sodium) 10 Mg Tablet 10 Mg PO DAILY 08/06/13 Reported Benadryl (Diphenhydramine Hcl) 25 Mg Capsule 25-50 Mg PO PRN Q4HRS 08/06/13 Reported Cromolyn Sodium 20 Mg/2 Ml Ampul.neb 20 Mg IH PRN Q4HRS 08/06/13 Reported Symbicort 160-4.5 Mcg Inhaler (Budesonide/Formoterol Fumarate) 10.2 Gm Hfa.aer.ad 10.2 Gm IH BID 08/06/13 Reported Duoneb 0.5 Mg-3 Mg/3 Ml Soln (Ipratropium/Albuterol Sulfate) 3 Ml Ampul.neb 3 Ml IH Q4HRS 08/06/13 Reported Impression . 1. The patient with underlying asthmatic bronchitis comes in with an acute exacerbation of her reactive airway disease. She was coughing. She has wheezing. 2. Mild bronchitis. Chest x-ray with some basal atelectasis, but no definite consolidation seen. 3. History of obstructive sleep apnea, on home CPAP. Her CPAP machine is more than 5 years old and she would be eligible for a new CPAP machine. Plan . 1. Discussed with Dr. Bruce and the patient. ok with ri home 2. change to PO steroids 3. Continue with Pulmicort. 4. DuoNebs. 5. At home, she no longer has been able to afford Symbicort. We will replace with Osbaldo Cristobal.as OP 6. Empiric antibiotic p.o. upon discharge. NETTE VUONG MD January 08, 2021 10:04
[2021-01-08 10:05] VITALS: BP 142/71
[2021-01-08] MEDS: MONTELUKAST SODIUM 10 MG TABLET. PO SCH (10:05)
[2021-01-08] MEDS: LISINOPRIL 5 MG TABLET. PO SCH (10:05)
--- NOTE | 2021-01-08 10:05 | NUR ---
SS following up with discharge planning. SS reviewed pt chart and discussed with pt RN. Pt is from home and is currently on room air. Pt on IV Zosyn. Pulmonology signed off. Probable discharge to home today. SS will continue to follow for discharge planning.
[2021-01-08] MEDS: CHOLECALCIFEROL (VITAMIN D3) 5,000 UNIT CAPSULE PO SCH (10:06)
[2021-01-08] MEDS: ROFLUMILAST 500 MCG TABLET. PO SCH (10:06)
[2021-01-08] MEDS: ASPIRIN ENTERIC COATED 81 MG TABLET.DR. PO SCH (10:06)
[2021-01-08] MEDS: CETIRIZINE HCL 10 MG TABLET. PO SCH (10:07)
[2021-01-08] MEDS: glyBURIDE 5 MG TABLET PO SCH (10:07)
[2021-01-08] MEDS: CROMOLYN 4% NASAL SPRAY 26ML BOTTLE. NS SCH (10:08)
[2021-01-08] MEDS ORDERED: PRED20TA PO (10:09)
--- NOTE | 2021-01-08 10:10 | DISCH ---
DISCHARGE INSTRUCTIONS Condition on Discharge Condition on Discharge: Stable Activity After Discharge Activity Instructions for Disc: No restrictions, Resume previous activity, Activity as tolerated Lifting Instructions after Dis: No heavy lifting, No pulling or pushing, Do not lift >10 pounds Driving Instructions after Dis: Do not drive today Weight Bearing Status after Di: No restrictions, Full weight bearing, As tolerated Diet after Discharge Diet after Discharge: Regular Diet Texture: Regular Liquid Texture: Thin Liquid Swallowing Supervision: None needed Wound Incision Care Wound/Incision Care: No wound care needed Checks after Discharge Checks after discharge: Check blood press - daily, Check your Temp as needed Contacting the DR. after DC Call your doctor for: If your condition worsens Follow-Up Follow up with: PCP within 2 weeks of discharge Follow Up With: Pulmonology as needed Treatment/Equipment after DC Adaptive Equipment Issued: None Discharge Respiratory Equipmen: Oxygen CIRO HORTON MD January 08, 2021 10:10
[2021-01-08] MEDS: INSULIN LISPRO 300 UNITS/3 ML VIAL. SQ SCH (10:18)
--- NOTE | 2021-01-08 12:30 | PDOC ---
CARDIO Progress Notes Date and Time Date of Service 01/08/21 Time of Evaluation 1230 Subjective Subjective: No Chest Pain, No Palpitations, No Dizziness, Other (breathing improved ) Vitals Vitals Vital Signs Date Time Temp Pulse Resp B/P (MAP) Pulse Ox O2 Delivery O2 Flow Rate FiO2 01/08/21 11:40 Room Air 01/08/21 10:05 78 142/71 01/08/21 10:00 97.6 96 97.6 01/08/21 05:02 16 Weight Weight [ ] Input and Output Intake and Output Intake and Output 01/08/21 07:00 Intake Total 1500 ml Output Total 750 ml Balance 750 ml Intake Oral 1500 ml Output Urine Total 750 ml # Bowel Movements 1 Laboratory Labs Laboratory Tests Test 01/07/21 17:27 01/08/21 10:02 Glucose (Fingerstick) 137 mg/dL (70-99) 245 mg/dL (70-99) Microbiology Micro Microbiology 01/06/21 Blood Culture - Preliminary, Resulted NO GROWTH AFTER 1 DAY Physical Exam HEENT: Neck Supple W Full Motion Chest: Symmetric LUNGS: Clear to Auscultation Heart: RRR (off tele. heart tones regular ) Abdomen: Soft N/T Extremities: No Edema Neurology: alert, oriented, follow commands Assessment Assessment 1. Dyspnea with AE asthma, COPD 2. CAD, non-obstructive. Cath 10/27 with moderate one-vessel disease of the LCx with negative iFR. clinically stable 3. Chronic diastolic CHF: well compensated 4. Hypertension 5. Diabetes, II 6. Hypothyroidism: on replacement 7. KELLEE with CPAP Recommendations Continue secondary prevention ASA, statin therapy Lung optimization No BB with AE asthma Outpatient echo as scheduled Follow up in our office with Dr. Kay as arranged Justicifation of Admission Dx: Justifications for Admission: Justification of Admission Dx: N/A SUN LONG APRN January 08, 2021 12:30
[2021-01-08] MEDS ORDERED: AMOX1TAB61 PO (12:45)
--- NOTE | 2021-01-08 14:01 | NUR ---
called [facility] for prednisone tablets, Pharmacy did not receive the e script.
--- NOTE | 2021-01-08 14:02 | NUR ---
At 1330 patient taken by wheelchair with her belongings to the main entrance and left with her son.
--- NOTE | 2021-01-10 17:43 | PDOC3 ---
[facility]-Discharge Summary Date of Admission: Date of Admission: January 06, 2021 Date of Discharge: Date of Discharge: January 08, 2021 Discharge Diagnosis: Discharge Diagnosis: Cardiology Recommendations Continue secondary prevention ASA, statin therapy Lung optimization No BB with AE asthma Outpatient echo as scheduled Follow up in our office with Dr. Kay as arranged Pulmonary recs: ok with dc home 2. change to PO steroids 3. Continue with Pulmicort. 4. DuoNebs. 5. At home, she no longer has been able to afford Symbicort. We will replace with Osbaldo Herediata.as OP 6. Empiric antibiotic p.o. upon discharge. Hospital Course: Hospital Course: Seen in ER WITH increased shortness of breath. x 3 days, cough, wheezing. stopped smoking in 2006 She has been taking nebulizers and albuterol treatments at home. not helping. has auditory wheezing upon arrival. She is 96% on room air but 33 respirations.was speaking in 1-2 word sentences. She has chest tightness but no chest pain. cough productive of small amounts of white phlegm. X 3 DAYS Denies fever, nausea, vomiting, abdominal pain, syncope, dizziness, headache, vision change, numbness or tingling. She has a history of sleep apnea, arthritis, hysterectomy, tonsillectomy, fib romyalgia, hypertension, hypothyroidism, arthritis, COPD, asthma. CXR CONCERNING for early pneumonia By day of discharge, pt was clinically stable and ready for discharge. Rest of hospital course was uneventful Disposition: Disposition/Orders: D/C to Home Activity: Activity: Resume previous activity Diet: Diet: Cardiac Medications: Home Meds Active Scripts Amoxicillin/Potassium Clav (AUGMENTIN 875-125 TABLET) 1 Each Tablet, 1 TAB PO BID for COPD exacerbation, #1 TAB 0 Refills Prov:CIRO HORTON MD 01/08/21 Prednisone (PREDNISONE) 20 Mg Tablet, 2 TAB PO DAILY for COPD exacerbation for 5 Days, #10 TAB Prov:CIRO HORTON MD 01/08/21 Ipratropium/Albuterol Sulfate (DUONEB 0.5-3(2.5) MG/3 ML) 3 Ml Ampul.neb, 3 ML NEB Q4-6HRS PRN for WHEEZING, #30 EACH Prov:PIO CHAN DO 12/16/20 Docusate Sodium (DOK) 100 Mg Capsule, 100 MG PO PRN BID PRN for HARD STOOLS for 30 Days, #60 CAP Prov:ERICA HERNANDEZ MD 09/22/20 Mag Hydrox/Al Hydrox/Simeth (MAG-AL PLUS XS SUSPENSION) 30 Ml Oral.susp, 30 ML PO PRN DAILY PRN for HEARTBURN / GAS for 14 Days, #240 MISC Prov:ERICA HERNANDEZ MD 09/22/20 Guaifenesin (GUAIFENESIN) 100 Mg/5 Ml Liquid, 200 MG PO PRN Q4HRS PRN for COUGH for 14 Days, #240 LIQUID Prov:ERICA HERNANDEZ MD 09/22/20 Cromolyn Sodium (CROMOLYN SODIUM) 26 Ml [place].pump, 1 SPRAY NS TID for ASTHMA for 30 Days, #1 SPRAY Prov:ERICA HERNANDEZ MD 09/22/20 Acetaminophen (TYLENOL) 325 Mg Tablet, 650 MG PO PRN Q4HRS PRN for TEMP OVER 100.4F OR MILD PAIN for 14 Days, #30 TAB Prov:ERICA HERNANDEZ MD 09/22/20 Albuterol Sulfate (Proair Hfa) 8.5 Gm Hfa.aer.ad, 2.5 MG NEB PRN Q4HRS PRN for SHORTNESS OF BREATH for 30 Days, #2 INHALER Prov:ERICA HERNANDEZ MD 09/22/20 Benzonatate (TESSALON PERLE) 100 Mg Capsule, 1 CAP PO TID for cough, #30 CAP Prov:ENRIQUE COTTON [employer] PRODUCER 08/08/18 Reported Medications Clobetasol Propionate (CLOBETASOL PROPIONATE) 15 Gm Cream..g., 1 SAMMIE TP Q2HR PRN for SKIN CLEANSING 09/19/20 Levothyroxine Sodium (SYNTHROID) 112 Mcg Tablet, 1 TAB PO DAILY for thyroid 09/19/20 Oxycodone Hcl (OXYCODONE HCL IMMED.RELEASE) 10 Mg Tablet, 1 TAB PO Q6HRS PRN for SEVERE PAIN 7-10 09/19/20 Ipratropium/Albuterol Sulfate (DUONEB 0.5-3(2.5) MG/3 ML) 3 Ml Ampul.neb, 1 PUFF NEB Q4HRS PRN for WHEEZING 09/19/20 Ipratropium/Albuterol Sulfate (COMBIVENT RESPIMAT INHAL) 4 Gm Aer.w.adap, 2 INH INH Q4-6HRS PRN for WHEEZING 09/19/20 Baclofen (BACLOFEN) 10 Mg Tablet, 1 TAB PO TID PRN for PAIN 09/19/20 Glyburide (GLYBURIDE) 2.5 Mg Tablet, 1 TAB PO DAILY for diabetes 09/19/20 Atorvastatin Calcium (ATORVASTATIN CALCIUM) 20 Mg Tablet, 2 TAB PO HS for HDL for 30 Days, #60 TAB 2 Refills 10/26/19 Lisinopril (LISINOPRIL) 5 Mg Tablet, 1 TAB PO DAILY for HTN for 30 Days, #30 TAB 2 Refills 10/26/19 Aspirin (ASPIRIN EC) 81 Mg Tablet.dr, 1 TAB PO DAILY for heart health, #30 TAB 2 Refills 10/26/19 Roflumilast (DALIRESP) 500 Mcg Tablet, 1 TAB PO DAILY, #90 TAB 3 Refills 02/12/16 Zolpidem Tartrate (AMBIEN) 5 Mg Tablet, 1 TAB PO PRN QHS PRN for INSOMNIA, #30 TAB 2 Refills 09/17/14 Psyllium Husk (FIBER) 0.52 Gm Capsule, 0.52 GM PO PRN DAILY PRN for CONSTIPATION 07/10/14 Cholecalciferol (Vitamin D3) (VITAMIN D) 2,000 Unit Capsule, 5000 UNIT PO DAILY 06/10/14 Alprazolam (ALPRAZOLAM) 1 Mg Tablet, 1 TAB PO TID PRN for ANXIETY / AGITATION, #90 TAB 06/10/14 Cetirizine Hcl (CETIRIZINE HCL) 10 Mg Tablet, 10 MG PO DAILY 03/23/14 Calcium Polycarbophil (FIBERCON) 625 Mg Tablet, 625 MG PO PRN DAILY 08/06/13 Pantoprazole Sodium (PROTONIX PACKET) 40 Mg Granpkt.dr, 40 MG PO DAILY08 08/06/13 Montelukast Sodium (SINGULAIR TABLET ) 10 Mg Tablet, 10 MG PO DAILY 08/06/13 Diphenhydramine Hcl (BENADRYL) 25 Mg Capsule, 25-50 MG PO PRN Q4HRS 08/06/13 Cromolyn Sodium (CROMOLYN SODIUM) 20 Mg/2 Ml Ampul.neb, 20 MG IH PRN Q4HRS 08/06/13 Budesonide/Formoterol Fumarate (SYMBICORT 160-4.5 MCG INHALER) 10.2 Gm Hfa.aer.ad, 10.2 GM IH BID 08/06/13 Ipratropium/Albuterol Sulfate (DUONEB 0.5 MG-3 MG/3 ML SOLN) 3 Ml Ampul.neb, 3 ML IH Q4HRS 08/06/13 Discontinued Scripts Prednisone (PREDNISONE) 20 Mg Tablet, 2 TAB PO DAILY, #8 TAB Start this prescription tomorrow, Thursday12/17/20 Prov:PIO CHAN DO 12/16/20 Prednisone (PREDNISONE) 20 Mg Tablet, 1.5 TAB PO DAILY for ASTHMA for 5 Days, #8 TAB Prov:ERICA HERNANDEZ MD 09/22/20 Prednisone (PREDNISONE) 20 Mg Tablet, 40 MG PO DAILY for ASTHMA for 5 Days, #10 TAB Prov:ERICA HERNANDEZ MD 09/22/20 Scheduled Amoxicillin/Potassium Clav (Augmentin 875-125 Tablet), 1 TAB PO BID Aspirin (Aspirin Ec), 1 TAB PO DAILY, (Reported) Atorvastatin Calcium (Atorvastatin Calcium), 2 TAB PO HS, (Reported) Benzonatate (Tessalon Perle), 1 CAP PO TID Budesonide/Formoterol Fumarate (Symbicort 160-4.5 Mcg Inhaler), 10.2 GM IH BID, (Reported) Calcium Polycarbophil (Fibercon), 625 MG PO PRN DAILY, (Reported) Cetirizine Hcl (Cetirizine Hcl), 10 MG PO DAILY, (Reported) Cholecalciferol (Vitamin D3) (Vitamin D), 5,000 UNIT PO DAILY, (Reported) Cromolyn Sodium (Cromolyn Sodium), 20 MG IH PRN Q4HRS, (Reported) Cromolyn Sodium (Cromolyn Sodium), 1 SPRAY NS TID Diphenhydramine Hcl (Benadryl), 25-50 MG PO PRN Q4HRS, (Reported) Glyburide (Glyburide), 1 TAB PO DAILY, (Reported) Ipratropium/Albuterol Sulfate (Duoneb 0.5 Mg-3 Mg/3 Ml Soln), 3 ML IH Q4HRS, (Reported) Levothyroxine Sodium (Synthroid), 1 TAB PO DAILY, (Reported) Lisinopril (Lisinopril), 1 TAB PO DAILY, (Reported) Montelukast Sodium (Singulair Tablet ), 10 MG PO DAILY, (Reported) Pantoprazole Sodium (Protonix Packet), 40 MG PO DAILY08, (Reported) Prednisone (Prednisone), 2 TAB PO DAILY Roflumilast (Daliresp), 1 TAB PO DAILY, (Reported) Scheduled PRN Acetaminophen (Tylenol), 650 MG PO PRN Q4HRS PRN for TEMP OVER 100.4F OR MILD PAIN Albuterol Sulfate (Proair Hfa), 2.5 MG NEB PRN Q4HRS PRN for SHORTNESS OF BREATH Alprazolam (Alprazolam), 1 TAB PO TID PRN for ANXIETY / AGITATION, (Reported) Baclofen (Baclofen), 1 TAB PO TID PRN for PAIN, (Reported) Clobetasol Propionate (Clobetasol Propionate), 1 SAMMIE TP Q2HR PRN for SKIN CRISTOBAL NSING, (Reported) Docusate Sodium (Dok), 100 MG PO PRN BID PRN for HARD STOOLS Guaifenesin (Guaifenesin), 200 MG PO PRN Q4HRS PRN for COUGH Ipratropium/Albuterol Sulfate (Combivent Respimat Inhal), 2 INH INH Q4-6HRS PRN for WHEEZING, (Reported) Ipratropium/Albuterol Sulfate (Duoneb 0.5-3(2.5) Mg/3 Ml), 1 PUFF NEB Q4HRS PRN for WHEEZING, (Reported) Ipratropium/Albuterol Sulfate (Duoneb 0.5-3(2.5) Mg/3 Ml), 3 ML NEB Q4-6HRS PRN for WHEEZING Mag Hydrox/Al Hydrox/Simeth (Mag-Al Plus Xs Suspension), 30 ML PO PRN DAILY PRN for HEARTBURN / GAS Oxycodone Hcl (Oxycodone Hcl Immed.release), 1 TAB PO Q6HRS PRN for SEVERE PAIN 7-10, (Reported) Psyllium Husk (Fiber), 0.52 GM PO PRN DAILY PRN for CONSTIPATION, (Reported) Zolpidem Tartrate (Ambien), 1 TAB PO PRN QHS PRN for INSOMNIA, (Reported) Discontinued Medications Prednisone (Prednisone), 40 MG PO DAILY Prednisone (Prednisone), 1.5 TAB PO DAILY Prednisone (Prednisone), 2 TAB PO DAILY Total Time: Total Time: Total time spent was 32 minutes in preparing scripts, discharge planning with SW and RN, and preparing this discharge summary. Patient seen and examined on day of discharge. Justicifation of Admission Dx: Justifications for Admission: Justification of Admission Dx: N/A CIRO HORTON MD January 10, 2021 17:43
== END 2021-01-08 13:40 | disposition home or self-care (01) ==
LOC: ER 11:03 → INTOOBSV 13:19 → 2 NORTH 13:19 → INTOOBSV 01-08 10:10 → OBSVTOIN 01-08 10:10
PROVIDERS: ADMIT Family Medicine; ATTEND Family Medicine
DX: J96.00 Acute respiratory failure, unspecified whether with hypoxia or hypercapnia (principal); J44.1 Chronic obstructive pulmonary disease with (acute) exacerbation; J18.9 Pneumonia, unspecified organism; J45.902 Unspecified asthma with status asthmaticus; J98.11 Atelectasis; I11.0 Hypertensive heart disease with heart failure; I50.32 Chronic diastolic (congestive) heart failure; G89.4 Chronic pain syndrome; E66.01 Morbid (severe) obesity due to excess calories; E03.9 Hypothyroidism, unspecified; K21.9 Gastro-esophageal reflux disease without esophagitis; F41.9 Anxiety disorder, unspecified; F32.9 Major depressive disorder, single episode, unspecified; M19.90 Unspecified osteoarthritis, unspecified site; M79.7 Fibromyalgia; G47.33 Obstructive sleep apnea (adult) (pediatric); E11.9 Type 2 diabetes mellitus without complications; Z90.49 Acquired absence of other specified parts of digestive tract; Z97.10 Presence of artificial limb (complete) (partial), unspecified; Z87.891 Personal history of nicotine dependence; Z79.82 Long term (current) use of aspirin; Z79.51 Long term (current) use of inhaled steroids; Z79.899 Other long term (current) drug therapy; Z90.710 Acquired absence of both cervix and uterus; Z68.36 Body mass index [BMI] 36.0-36.9, adult; Z51.5 Encounter for palliative care; Z98.890 Other specified postprocedural states
CPT/HCPCS: 36415; 71045; 80048; 80053; 82962; 83605; 84484; 85025; 87040; 87449; 93005; 94640; 94760; 96365; 96366; 96372; 96375; 96376; 99285; G0378; J1650; J1815; J2543; J2930; J3490; J7030; J7613; J7626; 94644; 96361; G0379

== ENCOUNTER → 2021-01-09 | Outpatient (CLI) | payer MEDICARE ==
[2021-01-08 10:05] VITALS: BP 142/71
[~2021-01-09] MED LIST changes: +AMOX1TAB61 PO
--- NOTE | 2021-01-09 14:45 | CARD ---
MR#: [id number] Date of Study: 01/09/2021 Ordering Physician: FLAKITA PEPE, Referring Physician: FLAKITA PEPE, Tech: Phyllis Villatoro [facility] APPROVED REPORT EXAM: Two-dimensional and M-mode echocardiogram with Doppler and color Doppler. Other Information Quality : Fair INDICATION Congestive Heart Failure 2D DIMENSIONS RVDd2.4 (2.9-3.5cm)Left Atrium(2D)3.7 (1.6-4.0cm) IVSd1.4 (0.7-1.1cm)Aortic Root(2D)2.8 (2.0-3.7cm) LVDd4.6 (3.9-5.9cm)LVOT Diameter2.0 (1.8-2.4cm) PWd1.3 (0.7-1.1cm)LVDs3.3 (2.5-4.0cm) FS (%) 27.8 %SV52.7 ml Aortic Valve AoV Peak North.200.5cm/sAoV VTI35.6cm AO Peak GR.16.1mmHgLVOT Peak North.157.5cm/s AO Mean GR.7mmHgAVA (VMAX)2.47cm2 KRISTY (VTI)2.90cm2 Mitral Valve MV E Pfzbyerh231.3cm/sMV DECEL CXIQ617mw MV A Ajzivgwx378.1cm/sE/A Ratio1.0 Pulmonary Valve PV Peak Xkdlnbct740.5cm/s Tricuspid Valve TR P. Xfvtzzzi382bd/sRAP PSNKBVPT5ybDt TR Peak Gr.25ihZmGQHK22uqGo Pulmonary Vein S1 Izskjqln73.2cm/sD2 Xyfwmama52.4cm/s LEFT VENTRICLE The left ventricle is normal size. There is mild concentric left ventricular hypertrophy. The left ve ntricular systolic function is normal and the ejection fraction is within normal range. The Ejection Fraction is 55-60%. There is normal LV segmental wall motion. Transmitral Doppler flow pattern is Gra de II-pseudonormal filling dynamics. RIGHT VENTRICLE The right ventricle cavity is mildly decreased. The right ventricular systolic function is normal. ATRIA The left atrium size is normal. The right atrium size is normal. The interatrial septum is intact wit h no evidence for an atrial septal defect or patent foramen ovale as noted on 2-D or Doppler imaging. AORTIC VALVE The aortic valve is calcified but opens well. Doppler and Color Flow revealed no significant aortic r egurgitation. There is no significant aortic valvular stenosis. MITRAL VALVE The mitral valve is calcified but opens well. Mitral annular calcification is mild to moderate. There is no evidence of mitral valve prolapse. There is no mitral valve stenosis. Doppler and Color-flow r evealed trace to mild mitral regurgitation. TRICUSPID VALVE The tricuspid valve is normal in structure and function. Doppler and Color Flow revealed trace tricus pid regurgitation. The PA pressure was estimated at 28 mmHg. There is no tricuspid valve stenosis. PULMONIC VALVE The pulmonic valve is partially flail. Doppler and Color Flow revealed no pulmonic valvular regurgita tion. There is no pulmonic valvular stenosis. GREAT VESSELS The aortic root is normal in size. The ascending aorta is normal in size. The IVC is normal in size a nd collapses >50% with inspiration. PERICARDIAL EFFUSION There is no evidence of significant pericardial effusion. Critical Notification Critical Value: No <Conclusion> The left ventricle is normal size. The left ventricular systolic function is normal and the ejection fraction is within normal range. The Ejection Fraction is 55-60%. There is mild concentric left ventricular hypertrophy. Doppler and Color Flow revealed no significant aortic regurgitation. There is no significant aortic valvular stenosis. Doppler and Color-flow revealed trace to mild mitral regurgitation. Doppler and Color Flow revealed trace tricuspid regurgitation. The PA pressure was estimated at 28 mmHg. Signed by : Erik Ramirez MD Electronically Approved : 01/09/2021 14:45:12
== END ==
LOC: ECHO 09:33
PROVIDERS: ATTEND Internal Medicine Cardiovascular Disease
DX: I08.0 Rheumatic disorders of both mitral and aortic valves (principal); I50.9 Heart failure, unspecified
CPT/HCPCS: 93306

== ENCOUNTER → 2021-05-29 | Outpatient (CLI) | payer MEDICARE ==
[2021-04-03 15:25] VITALS: BP 96/55
[~2021-05-29] MED LIST changes: +ASCO100019 PO; +DILT120C99 PO; +DOCU-148 PO; -DOCU-153 PO; +FURO20TA3 PO; +LOSA25TA54 PO; +THIA100T22 PO; +ZINC220C5 PO
--- NOTE | 2021-05-29 13:21 | KCIC ---
EXAM: CT CHEST WITHOUT CONTRAST (LDCT LUNG CANCER SCREENING). HISTORY: Risk factors for pulmonary malignancy. Tobacco use. Covid 19 TECHNIQUE: CT of the chest was performed without intravenous contrast using a low-dose lung screening protocol. Findings analysis is based on ACR Lung-RADS v1.1. *One or more of the following individual ized dose reduction techniques were utilized for this examination: 1. Automated exposure control. 2. Adjustment of the mA and/or kV according to patient size. 3. Use of iterative reconstruction technique. COMPARISON: 03/27/2021. FINDINGS: There has been interval decrease in previously demonstrated multifocal groundglass infiltra te. There is persistent multifocal predominantly peripheral groundglass infiltrate. No consolidation, pleural effusion or pneumothorax is seen. No suspicious pulmonary nodule is seen. The heart is claritza l in size. There is calcified atherosclerotic plaque involving the aorta and coronary arteries. There are multiple prominent calcified mediastinal and hilar granulomas. No pathologically enlarged noncal cified lymph node is seen. There are a few granulomas within the spleen and liver. There is no acute finding involving the upper abdomen. There is no suspicious osseous lesion. IMPRESSION: 1. No suspicious pulmonary nodule. Lung RADS category 1: Follow up with a low-dose lung cancer screen ing CT in 12 months. 2. Decrease in bilateral multifocal interstitial infiltrate. Given history of recent Covid 19, this l ikely due to resolving atypical pneumonia. 3. Healed granulomatous disease. Electronically signed by: Anai Hernandez MD (05/29/2021 1:19 PM) [facility]
== END ==
LOC: KCIC CT 12:42
PROVIDERS: ATTEND Student in an Organized Health Care Education/Training Program
DX: R91.8 Other nonspecific abnormal finding of lung field (principal); I70.0 Atherosclerosis of aorta; I25.10 Atherosclerotic heart disease of native coronary artery without angina pectoris; J84.10 Pulmonary fibrosis, unspecified; K75.3 Granulomatous hepatitis, not elsewhere classified; F17.210 Nicotine dependence, cigarettes, uncomplicated
CPT/HCPCS: 71271

== ENCOUNTER → 2021-06-18 | Outpatient (CLI) | payer MEDICARE ==
[2021-04-03 15:25] VITALS: BP 96/55
[~2021-06-18] MED LIST changes: +REGADENOSON 0.4 MG/5 ML DISP.SYRIN. IV ONE
--- NOTE | 2021-06-18 12:55 | RAD ---
MR#: [id number] Date of Study: 06/18/2021 Ordering Physician: FLAKITA PEPE, Referring Physician: ALBINA ESPINOZA Tech: HAYLEE Flowers APPROVED REPORT Test Type: Pharmacological Stress Nurse/Tech: Anabel Lee RN Test Indications: Dyspnea Cardiac History: Hypertension, Diabetes Medications: See Electronic Medical Record Medical History: See Electronic Medical Record Resting ECG: SR Resting Heart Rate: 78 bpm Resting Blood Pressure: 110/67mmHg Pretest Chest Pain: No chest pain Nurse/Tech Notes S1,S2 and lungs clear to auscultation. Consent: The procedure was explained to the patient in lay terms. Informed consent was witnessed. Phillip eout was entered into [employer]. History and Stress Test performed by RT Mati (Darian) (N) Pharm. Details Pharmacologic stress testing was performed using 0.4mg per 5ml of regadenoson given intravenously ove r 7-10 seconds. Stress Symptoms Dyspnea,Nausea POST EXERCISE Reason for Termination: Infusion complete Target HR: Yes Max HR: 162 bpm 124% of Maximum Predicted HR: 130 bpm Max Blood Pressure: 121/63mmHg Blood Pressure response to exercise: Normal blood pressure response during stress. Heart Rate response to exercise: WNL Chest Pain: No. Arrhythmia: No. ST Change: No. INTERPRETATION Stress EKG Conclusion: Baseline EKG showed sinus rhythm. No ischemic changes at peak stress. No arr hythmias. Imaging Protocol IMAGE PROTOCOL: Rest Tc-99m/stress Tc-99m 1 day Rest: Stress: Viability: Radiopharm.Tc99m SzuxmayllEf02t Sestamibi Dose10.5mCi 33mCi Duration 15min. 13min. Img Date 06/18/2021 06/18/2021 Inj-Img Iiur48lro. 60min. Rest Admin Site:IV - Right ForearmAdministrator:RT Mati (R)(N) Stress Admin Site: IV - Right ForearmAdministrator: RT Mati (R)(N) STRESS DATA End Diast. Vol.88.0mlAv. Heart Mvrj165.0bpm LVEDV index BSA45.0mlCardiac Output0.0L/min End Syst. Vol.20.0mlCO Index BSA0.0L/min LVESV index BSA10.0mlMyocardial Ymxo055.0g Eject. Bgknittd09.0% Stress Scores Regional WT0.00Summed WT9.00 Regional WM0.00Summed WM0.00 Study quality was good. Left Ventricular size was Normal at Rest and Stress. Lung uptake was . Left Ventricular ejection fraction is 77%. The rest and stress images show normal perfusion, normal contraction and thickening. LV Perf. Quant 17 Seg. SSS0.00 17 Seg. SRS0.00 17 Seg. SDS0.00 Stress Defect Extent (% LAD)0.00Rest Defect Extent (% LAD)3.80Rev. Defect Extent (% LAD)0.00 Stress Defect Extent (% LCX) 0.00Rest Defect Extent (% LCX)0.00Rev. Defect Extent (% LCX)0.00 Stress Defect Extent (% RCA)0.00Rest Defect Extent (% RCA)0.00Rev. Defect Extent (% RCA)0.00 Stress Defect Extent (% MURIEL)0.00Rest Defect Extent (% MURIEL)1.30Rev. Defect Extent (% MURIEL)0.00 Conclusion 1. Regadenoson cardioisotope stress test did not show any evidence of ischemia or infarct. 2. Normal left ventricular systolic function with ejection fraction calculated at 77%. 3. Low risk for cardiac events. Signed by : Chris Hughes, Electronically Approved : 06/18/2021 12:55:00
== END ==
LOC: NM 08:58
PROVIDERS: ATTEND Internal Medicine Cardiovascular Disease
DX: R06.00 Dyspnea, unspecified (principal)
CPT/HCPCS: 78452; 93017; A9500; J2785

== ENCOUNTER → 2021-07-10 | Outpatient (CLI) | payer MEDICARE ==
[2021-04-03 15:25] VITALS: BP 96/55
[~2021-07-10] MED LIST changes: -LISI-517 PO; +LISI5TAB15 PO; -REGADENOSON 0.4 MG/5 ML DISP.SYRIN. IV ONE
--- NOTE | 2021-07-10 09:59 | KCIC ---
MRI BRAIN WO Date: 07/10/2021 8:08 AM Indication: ESSENTIAL TREMOR, FIBROMYALGIA,. Hand tremor for 8-9mths. Recent one time grandmal seizu re. Comparison: None. Technique: Multiplanar multisequence MRI of the brain was performed without intravenous contrast usin g the standard protocol. Findings: No acute infarct. No acute or chronic hemorrhage. The ventricles are normal in size and configuration without hydrocephalus. Mild scattered FLAIR hyperintensities in the subcortical and periventricular deep white matter, a nonspecific finding, most commonly seen with chronic small vessel ischemic disea se. Hippocampi are normal in signal and morphology. No laguna matter heterotopia or cortical dysplasia. No evidence of arteriovenous malformation or cavernoma. The scalp and calvarium are normal. The pituitary and sella are normal. No Chiari malformation. The v isualized upper cervical spine is normal. The visualized orbits and globes are normal. Mild right maxillary sinus mucosal thickening. The masto id air cells are clear. Normal flow voids within the vertebral, basilar, and internal carotid arteries indicating patency. IMPRESSION: 1. No acute infarct, hemorrhage, mass, or hydrocephalus. 2. Mild scattered FLAIR hyperintensities in the subcortical and periventricular deep white matter, a nonspecific finding, most commonly seen with chronic small vessel ischemic disease. Electronically signed by: Daniel Fritz MD (07/10/2021 9:56 AM) [facility]
== END ==
LOC: KCIC MRI 07:56
PROVIDERS: ATTEND Psychiatry & Neurology Neurology with Special Qualifications in Child Neurology
DX: G25.0 Essential tremor (principal); M79.7 Fibromyalgia; R56.9 Unspecified convulsions
CPT/HCPCS: 70551

== ENCOUNTER → 2021-07-17 | Outpatient (CLI) | payer MEDICARE ==
[2021-04-03 15:25] VITALS: BP 96/55
--- NOTE | 2021-07-17 13:30 | EEG ---
DATE OF SERVICE: 07/17/2021 EEG#: [id number], performed on 07/17/2021. OBJECTIVE: The patient is a 65-year-old female with possible seizure a week ago. DESCRIPTION: This is a digital study. Electrodes are placed according to the international 10-20 system. Bipolar and referential montages are available. Activation procedures typically include hyperventilation and intermittent photic stimulation. INTERPRETATION: The waking background consists of 9--10 Hz, 50-100 microvolt activity, symmetrically distributed over parietooccipital regions and reactive to eye opening. Hyperventilation and intermittent photic stimulation are noncontributory. Stage II sleep was achieved with normal electroencephalogram patterns. IMPRESSION: This electroencephalogram with the patient awake and asleep is within normal limits. There is no focal, paroxysmal, or epileptiform activity. Thank you for letting us help with the patient's care. DC DR: Musa TID: [id number] CC: Bg Keen
== END ==
LOC: RT 08:56
PROVIDERS: ATTEND Psychiatry & Neurology Neurology with Special Qualifications in Child Neurology
DX: G25.0 Essential tremor (principal); M79.7 Fibromyalgia; R56.9 Unspecified convulsions
CPT/HCPCS: 95816

== ENCOUNTER → 2021-08-08 | Outpatient (CLI) | payer MEDICARE ==
[2021-04-03 15:25] VITALS: BP 96/55
--- NOTE | 2021-08-08 15:29 | KCIC ---
CLINICAL INDICATION: Reason: RIGHT LUMBOSACRAL RADICULOPATHY / Spl. Instructions: / History: LBP and spasms, bilat leg numbness x 1 yr. COMPARISON: None available. TECHNIQUE: Multiplanar, multisequence MR imaging of the lumbar spine was performed without IV contras t. Of note, the axial images are seen from the L3 level through S1. FINDINGS: Mild straightening of the normal lumbar lordosis. No spondylolisthesis. Vertebral body heights are pr eserved. T1 marrow signal is preserved. No fracture. Cord terminates at L1, normal in signal and morphology. Mild disc desiccation L4-5 and L5-S1. At L3-L4: Mild ligamentum flavum hypertrophy and facet degenerative changes result in trace thecal s ac deformity without neural foraminal narrowing. At L4-L5: Shallow central disc bulge with ligamentum flavum hypertrophy and facet degenerative garces es results in trace flattening of the ventral thecal sac without inferior neural foraminal narrowing. At L5-S1: Mild facet degenerative changes result in trace thecal sac deformity without neural evie inal narrowing. IMPRESSION: Minimal degenerative changes at multiple levels as described above Alignment is grossly normal. Electronically signed by: Jevon Randle MD (08/08/2021 3:27 PM) [id number]
== END ==
LOC: KCIC MRI 09:08
PROVIDERS: ATTEND Nurse Practitioner Family
DX: M47.27 Other spondylosis with radiculopathy, lumbosacral region (principal); M51.26 Other intervertebral disc displacement, lumbar region; M51.37 Other intervertebral disc degeneration, lumbosacral region
CPT/HCPCS: 72148

== ENCOUNTER 2021-08-20 19:52 | Emergency (ER) | payer MEDICARE ==
[~2021-08-20] VITALS: Ht 165.1 cm; Wt 103.9 kg
--- NOTE | 2021-08-20 20:12 | PHYS DOC ---
Past Medical History Past Medical History: Arthritis, Asthma, Bronchitis, COPD, Fibromyalgia, Hypertension, Hypothyroid Additional Past Medical Histor: Thyroid disease, SLEEP APNEA Past Surgical History: Hysterectomy, Tonsillectomy Additional Past Surgical Histo: bilat breast biopsy, abdominal adheasions removed Smoking Status: Former Smoker Alcohol Use: None Drug Use: None General Adult HPI: HPI: Patient is a 65 year old female here with report of feeling that her heart is beating irregularly. Symptoms have occurred over the past 4 days. She reports "a little" shortness of breath. She reports "mild pressure in my chest." She cannot articulate details of this chest pressure. It also has been present for 4 days. She denies cough or hemoptysis. She denies fevers or chills. She denies abdominal pain, nausea, vomiting. She reports that 3 or 4 days ago she felt lightheaded and dizzy, felt like she was sweaty, and felt like her heart was beating irregularly. That has not recurred since that time. She is attributing her symptoms to a new medication that she began last week, something for tremors. She did not contact her primary care physician or the prescribing physician to discuss this issue. She denies any active palpitations at present. She does report some mild chest pressure at present. She has already taken 2 doses of aspirin prior to arrival today. She is a relatively poor historian otherwise, and she does not appear to be particularly in tune with the litany of chronic health issues that she has. Review of Systems: Review of Systems: Constitutional: Denies fever or chills. [] Eyes: Denies change in visual acuity. [] HENT: Denies nasal congestion or sore throat. [] Respiratory: Denies cough. Reports mild shortness of breath. Cardiovascular: Chest pressure. GI: Abdominal pain, nausea, vomiting : Denies urinary symptoms Musculoskeletal: She has chronic arthralgias, unchanged. Integument: Denies rash. [] Neurologic: Denies headache, focal weakness or sensory changes. [] Psychiatric: Denies depression or anxiety. [] Heart Score: C/O Chest Pain: Yes HEART Score for Chest Pain: HEART Score for Chest Pain Response (Comments) Value History Moderately Suspicious 1 Age > 65 2 Risk Factors >3 Risk Factors or Hx CAD 2 Troponin < Normal Limit 0 Total 5 Risk Factors: Risk Factors: DM, Current or recent (<one month) smoker, HTN, HLP, family history of CAD, obesity. Risk Scores: Score 0 - 3: 2.5% MACE over next 6 weeks - Discharge Home Score 4 - 6: 20.3% MACE over next 6 weeks - Admit for Clinical Observation Score 7 - 10: 72.7% MACE over next 6 weeks - Early Invasive Strategies Allergies: Allergies: Allergies Coded Allergies Type Severity Reaction Last Updated Verified gadopentetate dimeglumine Allergy Severe Anaphylaxis 07/09/14 Yes levofloxacin Allergy Severe Hives 11/09/15 Yes acetaminophen Allergy Intermediate Itching 12/28/17 Yes adhesive Allergy Intermediate Rash 07/09/14 Yes hydrocodone Allergy Intermediate Itching 12/28/17 Yes Sulfa (Sulfonamide Antibiotics) Adverse Reaction Intermediate ABDOMINAL PAIN 07/15/14 Yes diazepam Adverse Reaction Intermediate "MAKES ME CRAZY" 07/15/14 Yes procaine Adverse Reaction Intermediate Nausea and Vomiting 07/15/14 Yes doxycycline Adverse Reaction Mild Nausea and Vomiting 02/16/16 Yes Uncoded Allergies Type Severity Reaction Last Updated Verified "SCENTS" Allergy Severe 03/13/18 Physical Exam: PE: Constitutional: Well developed, well nourished, no acute distress, non-toxic appearance. [] HENT: Normocephalic, atraumatic Eyes: Sclera are clear and anicteric. Conjunctival normal appearing Neck: Normal range of motion, no tenderness, supple, no stridor. Trachea is midline. No JVD. Cardiovascular:Heart rate regular rhythm, 2 radial and +2 posterior tibial pulses bilaterally Lungs & Thorax: Bilateral breath sounds clear to auscultation, no rales, rhonchi or wheezes. No distress. Abdomen: Abdomen is obese, soft, nondistended, no tenderness to palpation. Skin: Warm, dry, no erythema, no rash. [] Back: No formally, no midline tenderness, full range of motion Extremities: No tenderness, no cyanosis, no clubbing, ROM intact, mild, sy mmetric lower extremity nonpitting edema. Calf tenderness. Neurologic: Alert and oriented X 3, normal motor function, normal sensory function, no focal deficits noted. [] Psychologic: Affect is somewhat bizarre, she is overall cooperative [] EKG: EKG: EKG is interpreted at 1811 Rhythm is is sinus Rate is 80 bpm [place] is left No STEMI Radiology/Procedures: Radiology/Procedures: IMAGING REPORT Signed PATIENT: JAMARCUS HOLDEN ACCOUNT: [id number] : 1955 LOCATION: ER AGE: 65 SEX: F EXAM STATUS: REG ER ORD. PHYSICIAN: STEWART HENDRIX DO REASON: chest pain PROCEDURE: PORTABLE CHEST 1V XR CHEST 1V Clinical History: Reason: chest pain / Spl. Instructions: / History: Technique: AP view of the chest was obtained at 08/20/2021 9:03 PM. Comparison: March 24, 2021. Findings: The cardiomediastinal silhouette is normal. The pulmonary vasculature is normal. Reticular opacities of the lungs are improved. Impression: Reticular opacities are significantly improved and could be residual pneumonitis. Electronically signed by: Mikhail Storm III, MD (08/20/2021 9:09 PM) [facility] DICTATED and SIGNED BY: MIKHAIL STORM III, MD DATE: 08/20/21 [id number] 0 Course & Med Decision Making: Course & Med Decision Making Pertinent Labs and Imaging studies reviewed. (See chart for details) I discussed the findings, differential diagnosis and plan of care with the patient. The patient denies any active palpitations, dyspnea or chest pressure. She is resting comfortably. Blood pressure and vital vital signs are stable. She manifests no evidence of distress. She is anxiously awaiting discharge, does not want to stay for any further evaluation, care or treatment. I have strongly urged to contact her primary care physician as well as outpatient cardiology. She may benefit from repeat cardiology consultation, echo, stress, and/or Holter monitor testing. Strict return precautions are given. She is comfortable with the plan of care, she verbalized understanding of instructions provided. Dragon Disclaimer: Dragon Disclaimer: This electronic medical record was generated, in whole or in part, using a voice recognition dictation system. Departure Departure Impression: Primary Impression: Palpitations Additional Impression: Chest pressure Disposition: HOME / SELF CARE / HOMELESS Condition: STABLE Referrals: LUDWIN DUMONT III, MD (PCP) Patient Instructions: Chest Pain (Nonspecific), Palpitations Additional Instructions: Return to the ER for more severe pain, shortness of breath, severe dizziness, weakness, falls or injury, abdominal pain, uncontrolled vomiting, temperature 100.4 or higher or for any other concerns. Please contact your primary care physician for further evaluation and treatment. Please contact your neurologist to discuss your medication regimen as well. Keep all schedule appointments with your film tests checker. Contact your sap payroll consultant for outpatient evaluation, you may benefit from repeat testing, such as echocardiogram and/or Holter monitor testing. STEWART HENDRIX DO Aug 20, 2021 20:12
[2021-08-20 20:42] LABS: BILIRUBIN,URINE NEGATIVE (NEG); CLARITY,URINE CLEAR; COLOR,URINE YELLOW; NITRITE,URINE NEGATIVE (NEG); PH,URINE 5.5 (<5.0-8.0); PROTEIN,URINE NEGATIVE (NEG-TRACE); UROBILINOGEN,URINE 0.2 mg/dL (0.2 mg/dL)
[2021-08-20 20:48] LABS: BACTERIA,URINE 0 /HPF (0-FEW); RBC,URINE 0 /HPF (0-2); WBC,URINE 0 /HPF (0-4)
[2021-08-20 21:08] LABS: BASO # 0.1 x10^3/uL (0.0-0.2); BASO % 1 % (0-3); EOS % 0 % (0-3); HEMATOCRIT 32.9 % (36.0-47.0); HEMOGLOBIN 10.4 g/dL (12.0-15.5); LYMPH # 1.2 x10^3/uL (1.0-4.8); LYMPH % 12 % (24-48); MEAN CORPUSCULAR HEMOGLOBIN 26 pg (25-35); MEAN CORPUSCULAR HGB CONC 32 g/dL (31-37); MEAN CORPUSCULAR VOLUME 80 fL (79-100); MONO # 0.4 x10^3/uL (0.0-1.1); MONO % 3 % (0-9); NEUT # 8.9 x10^3/uL (1.8-7.7); NEUT % 84 % (31-73); PLATELET COUNT 358 x10^3/uL (140-400); RED CELL DISTRIBUTION WIDTH 15.5 % (11.5-14.5); WHITE BLOOD COUNT 10.6 x10^3/uL (4.0-11.0)
--- NOTE | 2021-08-20 21:11 | RAD ---
XR CHEST 1V Clinical History: Reason: chest pain / Spl. Instructions: / History: Technique: AP view of the chest was obtained at 08/20/2021 9:03 PM. Comparison: March 24, 2021. Findings: The cardiomediastinal silhouette is normal. The pulmonary vasculature is normal. Reticular opacities of the lungs are improved. Impression: Reticular opacities are significantly improved and could be residual pneumonitis. Electronically signed by: Calixto Sierra III, MD (08/20/2021 9:09 PM) [facility]US[facility]
[2021-08-20 21:30] LABS: CALCIUM 8.5 mg/dL (8.5-10.1); CREATININE 0.9 mg/dL (0.6-1.0); GFR 62.6; POTASSIUM 4.5 mmol/L (3.5-5.1)
[2021-08-20 21:34] LABS: ALBUMIN 3.3 g/dL (3.4-5.0); MAGNESIUM 2.3 mg/dL (1.8-2.4); TOTAL BILIRUBIN 0.1 mg/dL (0.2-1.0); TOTAL PROTEIN 6.5 g/dL (6.4-8.2)
[2021-08-20 22:40] VITALS: BP 148/85
--- NOTE | 2021-08-21 00:56 | EKG ---
[facility] [address] [place] [address] Test Date: 2021-08-20 Test Time: 20:08:39 Pat Name: JAMARCUS HOLDEN Department: Room: Gender: F Director Global Development: : 1955 Requested By: STEWART HENDRIX Order Number: [id number] Reading MD: Measurements Intervals [place] Rate: 80 P: 40 HI: 156 QRS: -17 QRSD: 96 T: 60 QT: 382 QTc: 444 Interpretive Statements SINUS RHYTHM LEFTWARD AXIS OTHERWISE NORMAL ECG RI6.02 No previous ECG available for comparison
== END 2021-08-20 23:05 | disposition home or self-care (01) ==
LOC: ER 19:52
DX: R00.2 Palpitations (principal); R07.89 Other chest pain; R06.02 Shortness of breath; J44.9 Chronic obstructive pulmonary disease, unspecified; I10 Essential (primary) hypertension; E03.9 Hypothyroidism, unspecified; Z87.891 Personal history of nicotine dependence; Z88.1 Allergy status to other antibiotic agents; Z88.4 Allergy status to anesthetic agent; Z88.2 Allergy status to sulfonamides; Z88.5 Allergy status to narcotic agent; Z88.8 Allergy status to other drugs, medicaments and biological substances
CPT/HCPCS: 36415; 71045; 80053; 81001; 83690; 83735; 83880; 84443; 84484; 85025; 85379; 93005; 99285-25